=== PATIENT | male | born 1955 | race Caucasian/White ===

== ENCOUNTER 2017-08-21 15:01 | Emergency (ER) | payer BC ==
--- OUTSIDE RECORDS SUMMARY | 2017-08-21 15:04 | XMS REPORT | Clinical Summary ---
:1955 Author Organization [facility] Address [address] [place] [address] Phone Care Team Providers Name Role Phone Unavailable Primary Care Provider Unavailable Allergies No Known Allergies Current Medications Prescription Sig. Disp. Refills Start Date End Date Status amiloride-hydroCHLORO Take 1 tablet Active thiazide (MODURETIC) by mouth 5-50 mg tablet daily. SITagliptin (JANUVIA) Take 100 mg by Active 100 MG tablet mouth daily. metoprolol Take 50 mg by Active (LOPRESSOR) 50 MG mouth 2 (two) tablet times daily. celecoxib (CELEBREX) Take 200 mg by Active 200 MG capsule mouth every 12 (twelve) hours as needed for Pain. gabapentin Take 100 mg by Active (NEURONTIN) 100 MG mouth 3 capsule (three) times daily. metFORMIN Take 1,000 mg Active (GLUCOPHAGE) 1000 MG by mouth 2 tablet (two) times daily with breakfast and dinner. lovastatin (MEVACOR) Take 20 mg by Active 20 MG tablet mouth nightly. tamsulosin (FLOMAX) Take 0.4 mg by Active 0.4 mg Cp24 24 hr mouth daily. capsule mesalamine (LIALDA) Take 1,200 mg Active 1.2 gram EC tablet by mouth 2 (two) times daily. dexlansoprazole 60 mg Take 60 mg by Active capsule mouth daily. phenazopyridine Take 100 mg by Active (PYRIDIUM) 100 MG mouth 3 tablet (three) times daily as needed for Pain. ferrous sulfate 325 Take 325 mg by Active (65 FE) MG tablet mouth daily with breakfast. nitrofurantoin Take 1 capsule 8 capsule 0 08/19/2017 Active (MACRODANTIN) 100 MG (100 mg total) 8 capsule by mouth 2 (two) times daily for 4 days. phenazopyridine Take 1 tablet 10 tablet 0 08/19/2017 Active (PYRIDIUM) 200 MG (200 mg total) 8 tablet by mouth 3 (three) times daily as needed for Pain for up to 6 days. AMOXICILLIN ORAL Take by mouth. Discontinued 8 nitrofurantoin Take 1 capsule 8 capsule 0 08/19/2017 Discontinued (MACRODANTIN) 100 MG (100 mg total) 8 capsule by mouth 2 (two) times daily for 4 days. phenazopyridine Take 1 tablet 10 tablet 0 08/19/2017 Discontinued (PYRIDIUM) 200 MG (200 mg total) 8 tablet by mouth 3 (three) times daily as needed for Pain for up to 6 days. Active Problems Problem Noted Date Bladder tumor 08/19/2017 Bladder cancer (HCC) 08/19/2017 Encounters Date Type Specialty Care Team Description 08/19/2017 Hospital Encounter Tyshawn Jorge MD Malignant neoplasm of urinary bladder, unspecified site (HCC) 08/19/2017 Procedure Pass 08/19/2017 Surgery Tyshawn Jorge MD CYSTOSCOPY,BLUE LIGHT CYSVIEW 08/17/2017 Anesthesia Event Sisi Rivas MD 08/17/2017 Orders Only Urology Tyshawn Jorge MD Malignant neoplasm of urinary bladder, unspecified site (HCC) (Primary Dx) after 08/20/2016 Social History Tobacco Use Types Packs/Day Years Used Date Former Smoker Smokeless Tobacco: Never Used Tobacco Cessation: Counseling Given: No Alcohol Use Drinks/Week oz/Week Comments No Sex Assigned at Date Recorded Not on file Last Filed Vital Signs Vital Sign Reading Time Taken Blood Pressure 157/82 08/19/2017 10:45 PM CDT Pulse 73 08/19/2017 10:45 PM CDT Temperature 37 C (98.6 F) 08/19/2017 10:45 PM CDT Respiratory Rate 19 08/19/2017 10:45 PM CDT Oxygen Saturation 95% 08/19/2017 10:45 PM CDT Inhaled Oxygen Concentration - - Weight 92.1 kg (203 lb) 08/19/2017 9:00 AM CDT Height 175.3 cm (5' 9") 08/19/2017 9:00 AM CDT Body Mass Index 29.98 08/19/2017 9:00 AM CDT Plan of Treatment Not on file Procedures Procedure Name Priority Date/Time Associated Diagnosis Comments CYSTOSCOPY,TURBT 08/19/2017 4:12 PM Malignant neoplasm of CDT urinary bladder, unspecified site (HCC) CYSTOSCOPY,BLUE LIGHT 08/19/2017 4:12 PM Malignant neoplasm of CYSVIEW CDT urinary bladder, unspecified site (HCC) after 08/20/2016 Results TRANSFUSION SERVICE REPORT - SCAN (08/20/2017 6:04 PM)POC-Glucose meter (2017 6:19 PM)Only the most recent of3 resultswithin the time period is included. Component Value Ref Range POC-Glucose Meter 178 (H)Comment: TESTED AT [address] 70 - 110 mg/[place] [address] Specimen Performing Laboratory Blood [address] [address] Type and screen, automated (08/19/2017 10:33 AM) Component Value Ref Range ABO/RH AUTOMATED (BEAKER) O POSITIVE Ab Scrn NEGATIVE Specimen Performing Laboratory Blood [address] [address] CBC with platelet count + automated diff (08/19/2017 10:33 AM) Component Value Ref Range WBC 8.6 3.5 - 10.5 K/L RBC 3.51 (L) 4.63 - 6.08 M/L Hemoglobin 7.2 (L) 13.7 - 17.5 GM/DL Hematocrit 26.5 (L) 40.1 - 51.0 % MCV 75.5 (L) 79.0 - 92.2 fL MCH 20.5 (L) 25.7 - 32.2 pg MCHC 27.2 (L) 32.3 - 36.5 GM/DL RDW 18.4 (H) 11.6 - 14.4 % Platelets 357 150 - 450 K/CU MM MPV 10.0 9.4 - 12.4 fL nRBC 0 0 - 0 /100 WBC % Neutros 70 % % Lymphs 19 % % Monos 9 % % Eos 2 % % Baso 1 % # Neutros 5.98 (H) 1.78 - 5.38 K/L # Lymphs 1.60 1.32 - 3.57 K/L # Monos 0.75 0.30 - 0.82 K/L # Eos 0.14 0.04 - 0.54 K/L # Baso 0.06 0.01 - 0.08 K/L Immature Granulocytes-Relative 1 0 - 1 % Specimen Performing Laboratory Blood [address] [address] CBC with platelet count + automated diff (08/19/2017 10:33 AM) Specimen Performing Laboratory Blood Narrative The following orders were created for panel order CBC with platelet count + automated diff. Procedure Abnormality Status --------- ------ CBC with platelet count ...[[id number]]AbnormalFinal result Please view results for these tests on the individual orders. Basic Metabolic Panel (08/19/2017 10:33 AM) Component Value Ref Range Sodium 140 136 - 145 meq/L Potassium 4.0 3.5 - 5.1 meq/L Chloride 106 98 - 107 meq/L CO2 25 22 - 29 meq/L BUN 23 (H) 7 - 21 mg/dL Creatinine 1.53 (H) 0.57 - 1.25 mg/dL Glucose 103 70 - 105 mg/dL Calcium 9.4 8.4 - 10.2 mg/dL EGFR 46Comment: ESTIMATED GFR IS NOT ACCURATE mL/min/1.73 sq m CREATININE CLEARANCE IN PREDICTING GLOMERULAR FILTRATION RATE. ESTIMATED GFR IS NOT APPLICABLE FOR DIALYSIS PATIENTS. Specimen Performing Laboratory Blood [address] [address] after 08/20/2016
--- OUTSIDE RECORDS SUMMARY | 2017-08-21 15:04 | XMS REPORT ---
:1955 Author Organization [employer] Care Team Providers Name Role Phone Tiago Lane Provider Role Unavailable Allergies No Known Allergies Problems Problem Type Condition Code Onset Dates Condition Status Problem Mixed hyperlipidemia E78.2 Active Problem Hemorrhoids K64.9 Active Problem Benign essential hypertension, age I10 Active 0-18 Problem Urothelial carcinoma C68.9 Active Problem Unspecified kidney failure N19 Active Problem Iron deficiency anemia due to chronic D50.0 Active blood loss Problem BPH without urinary obstruction N40.0 Active Problem Colitis K52.9 Active Problem Diabetes mellitus type 2, controlled, E11.9 Active without complications Problem Non-alcoholic fatty liver disease K76.0 Active Assessment Microalbuminuria R80.9 Active Assessment Colitis K52.9 Active Assessment Non-alcoholic fatty liver disease K76.0 Active Assessment BPH without urinary obstruction N40.0 Active Assessment Urothelial carcinoma C68.9 Active Assessment Benign essential hypertension, age I10 Active 0-18 Assessment Mixed hyperlipidemia E78.2 Active Assessment Diabetes mellitus type 2, controlled, E11.9 Active without complications Assessment Iron deficiency anemia due to chronic D50.0 Active blood loss Problem Microalbuminuria R80.9 Active Medications Medication Code Code Instructions Start End Status Dosage System Date Date Dexilant [facility] 43031521242 60 MG Orally Active 1 capsule Once a day Januvia [facility] 52897233107 100 MG Orally Active 1 tablet Once a day Pantoprazole [facility] 83564134580 40 MG Orally Active 1 tablet Sodium Once a day Flomax [facility] 30388840519 0.4 MG Orally Active 2 capsule Once a day Lantus SoloStar [facility] 61506360283 100 UNIT/ML Active not Subcutaneous defined Gabapentin [facility] 10384829325 100 MG Orally Active 1 capsule Three times a day Lisinopril [facility] 04375160351 2.5 MG Orally Active 1 tablet Once a day Ferrous Sulfate [facility] [address]-54 325 (65 Fe) MG Active 1 tablet Orally twice a day Celecoxib [facility] 04440869206 200 MG Orally Active 1 capsule Once a day with food Lovastatin [facility] 63622327208 20 MG Orally Active 1 tablet Once a day with a meal Mesalamine [facility] 63946936017 1.2 GM Orally Active 2 tablets Twice a day Metformin HCl [facility] 06924191403 1000 MG Orally Active 1 tablet Twice a day with meals Metoprolol [facility] 36170690273 100 MG Orally Active 1 tablet Tartrate Twice a day with food Amiloride-[place] [facility] 40328508097 5-50 MG Orally Active 1 tablet chlorothiazide Once a day with food Celecoxib [facility] 09702597790 200 Active TAKE 1 CAPSULE BY MOUTH DAILY Results No Known Results Summary Purpose [employer] Submission
--- OUTSIDE RECORDS SUMMARY | 2017-08-21 15:04 | XMS REPORT ---
:1955 Author Organization [employer] Care Team Providers Name Role Phone OrdoñezLane Provider Role Unavailable Allergies No Known Allergies Problems Problem Type Condition Code Onset Dates Condition Status Problem BPH without urinary obstruction N40.0 Active Problem Microalbuminuria R80.9 Active Problem Hemorrhoids K64.9 Active Problem Benign essential hypertension, age I10 Active 0-18 Problem Colitis K52.9 Active Problem Diabetes mellitus type 2, controlled, E11.9 Active without complications Problem Non-alcoholic fatty liver disease K76.0 Active Problem Mixed hyperlipidemia E78.2 Active Problem Unspecified kidney failure N19 Active Medications Medication Code System Code Instructions Start End Date Status Dosage Date Flomax [facility] 80429725819 0.4 MG Orally Active 2 capsule Once a day Results No Known Results Summary Purpose [employer] Submission
--- OUTSIDE RECORDS SUMMARY | 2017-08-21 15:04 | XMS REPORT ---
:1955 Author Organization [employer] Care Team Providers Name Role Phone Lane Ordoñez Provider Role Unavailable Allergies No Known Allergies [...] Problem Unspecified kidney failure N19 Active Medications No Known Medications Results No Known Results Summary Purpose [facility] Submission
--- OUTSIDE RECORDS SUMMARY | 2017-08-21 15:04 | XMS REPORT ---
:1955 Author Organization [employer] Care Team Providers Name Role Phone Lane [...] Medications Results No Known Results Summary Purpose [facility] [employer] Submission
--- OUTSIDE RECORDS SUMMARY | 2017-08-21 15:04 | XMS REPORT ---
:1955 Author Organization [employer] Care Team Providers Name Role Phone Lane [...] Medications Results No Known Results Summary Purpose [facility] Submission
--- OUTSIDE RECORDS SUMMARY | 2017-08-21 15:04 | XMS REPORT ---
:1955 Author Organization [employer] Care Team Providers Name Role Phone OrdoñezLane Provider Role Unavailable Allergies, Adverse Reactions, Alerts Substance Reaction Event Type N.K.D.A. Info Not Available Non Drug Allergy Problems Problem Type Condition Code Onset Dates Condition Status Assessment Diabetes mellitus type 2, controlled, E11.9 Active without complications Problem BPH without urinary obstruction N40.0 Active Problem Microalbuminuria R80.9 Active Problem Hemorrhoids K64.9 Active Problem Benign essential hypertension, age I10 Active 0-18 Problem Colitis K52.9 Active Problem Diabetes mellitus type 2, controlled, E11.9 Active without complications Problem Non-alcoholic fatty liver disease K76.0 Active Problem Mixed hyperlipidemia E78.2 Active Problem Unspecified kidney failure N19 Active Assessment Non-alcoholic fatty liver disease K76.0 Active Assessment BPH without urinary obstruction N40.0 Active Assessment Microalbuminuria R80.9 Active Assessment Mixed hyperlipidemia E78.2 Active Assessment Colitis K52.9 Active Assessment Benign essential hypertension, age I10 Active 0-18 Medications Medication Code Code Instructions Start End Status Dosage System Date Date Metoprolol [facility] 42480172687 100 MG Orally Active 1 tablet Tartrate Twice a day with food Amiloride-Hydr [facility] 90198648104 5-50 MG Orally Active 1 tablet ochlorothiazid Once a day with food e Lovastatin [facility] 88102476215 20 MG Orally Active 1 tablet Once a day with a meal Januvia [facility] 36622487287 100 MG Orally Active 1 tablet Once a day Lantus [facility] 77242489086 100 UNIT/ML Active not SoloStar Subcutaneous defined Flomax [facility] 66111867353 0.4 MG Orally July 01, Active 2 capsule Once a day 2017 Dexilant [facility] 48886191919 60 MG Orally Active 1 capsule Once a day Celecoxib [facility] 23106608135 200 MG Orally Active 1 capsule Once a day with food Lisinopril [facility] 75279571108 2.5 MG Orally May 04, Active 1 tablet Once a day 2017 Gabapentin [facility] 39040569710 100 MG Orally Active 1 capsule Three times a day Metformin HCl [facility] 63282920290 1000 MG Orally Active 1 tablet Twice a day with meals Mesalamine [facility] 29362463411 1.2 GM Orally Active 2 tablets Once a day Results No Known Results Summary Purpose [employer] Submission
--- OUTSIDE RECORDS SUMMARY | 2017-08-21 15:04 | XMS REPORT ---
:1955 Author Organization [employer] Care Team Providers Name Role Phone Lane [...] Medications Results No Known Results Summary Purpose [employer] Submission
--- OUTSIDE RECORDS SUMMARY | 2017-08-21 15:04 | XMS REPORT ---
:1955 Author Organization [facility] Address [address] [place] [address] Care Team Providers Name Role Phone RUBY SIFUENTES Unavailable Unavailable Problems This patient has no known problems. Allergies, Adverse Reactions, Alerts This patient has no known allergies or adverse reactions. Medications This patient has no known medications. Results Test Description Test Time Test Comments Text Results Atomic Results Result Comments POCT-GLUCOSE METER 2017-08-19 18:21:00 Test Item Value Reference Range Comments POC-GLUCOSE METER (BEAKER) (test 178 mg/dL 70-110 TESTED AT [address] glhb=1274) [facility] [id number] POCT-GLUCOSE [id number] 17:31:00 Test Item Value Reference Range Comments POC-GLUCOSE METER (BEAKER) 67 mg/dL 70-110 TESTED AT [address] (test ibam=2558) [facility] [id number] BASIC METABOLIC [id number] 11:25:00 Test Item Value Reference Range Comments SODIUM (BEAKER) (test 140 meq/L 136-145 otds=149) POTASSIUM (BEAKER) (test 4.0 meq/L 3.5-5.1 iaod=611) CHLORIDE (BEAKER) (test 106 meq/L 98-107 meba=972) CO2 (BEAKER) (test 25 meq/L 22-29 hgvj=897) BLOOD UREA NITROGEN 23 mg/dL 7-21 (BEAKER) (test heud=829) CREATININE (BEAKER) (test 1.53 mg/dL 0.57-1.25 ywww=845) GLUCOSE RANDOM (BEAKER) 103 mg/dL 70-105 (test dguc=512) CALCIUM (BEAKER) (test 9.4 mg/dL 8.4-10.2 ucjb=240) EGFR (BEAKER) (test 46 mL/min/1.73 sq m ESTIMATED GFR IS NOT zntt=6449) ACCURATE CREATININE CLEARANCE IN PREDICTING GLOMERULAR FILTRATION RATE. ESTIMATED GFR IS NOT APPLICABLE FOR DIALYSIS PATIENTS. CBC W/PLT COUNT & AUTO [id number] 11:10:00 Test Item Value Reference Range Comments WHITE BLOOD CELL COUNT (BEAKER) (test sdrm=722) 8.6 K/ L 3.5-10.5 RED BLOOD CELL COUNT (BEAKER) (test hxpi=076) 3.51 M/ L 4.63-6.08 HEMOGLOBIN (BEAKER) (test opgb=928) 7.2 GM/DL 13.7-17.5 HEMATOCRIT (BEAKER) (test nppp=194) 26.5 % 40.1-51.0 MEAN CORPUSCULAR VOLUME (BEAKER) (test xlrt=122) 75.5 fL 79.0-92.2 MEAN CORPUSCULAR HEMOGLOBIN (BEAKER) (test 20.5 pg 25.7-32.2 ngdc=309) MEAN CORPUSCULAR HEMOGLOBIN CONC (BEAKER) (test 27.2 GM/DL 32.3-36.5 rxss=091) RED CELL DISTRIBUTION WIDTH (BEAKER) (test 18.4 % 11.6-14.4 iago=562) PLATELET COUNT (BEAKER) (test klbc=307) 357 K/CU MM 150-450 MEAN PLATELET VOLUME (BEAKER) (test kyua=935) 10.0 fL 9.4-12.4 NUCLEATED RED BLOOD CELLS (BEAKER) (test 0 /100 WBC 0-0 byft=947) NEUTROPHILS RELATIVE PERCENT (BEAKER) (test 70 % czur=482) LYMPHOCYTES RELATIVE PERCENT (BEAKER) (test 19 % rxny=128) MONOCYTES RELATIVE PERCENT (BEAKER) (test 9 % rojr=673) EOSINOPHILS RELATIVE PERCENT (BEAKER) (test 2 % xhls=830) BASOPHILS RELATIVE PERCENT (BEAKER) (test 1 % ulhu=935) NEUTROPHILS ABSOLUTE COUNT (BEAKER) (test 5.98 K/ L 1.78-5.38 bfca=843) LYMPHOCYTES ABSOLUTE COUNT (BEAKER) (test 1.60 K/ L 1.32-3.57 iivy=474) MONOCYTES ABSOLUTE COUNT (BEAKER) (test 0.75 K/ L 0.30-0.82 qyhb=049) EOSINOPHILS ABSOLUTE COUNT (BEAKER) (test 0.14 K/ L 0.04-0.54 ygbz=637) BASOPHILS ABSOLUTE COUNT (BEAKER) (test 0.06 K/ L 0.01-0.08 gkyw=923) IMMATURE GRANULOCYTES-RELATIVE PERCENT (AKER) 1 % 0-1 (test nhhv=4532) POCT-GLUCOSE [id number] 10:38:00 Test Item Value Reference Range Comments POC-GLUCOSE METER ([facility]) 118 mg/dL 70-110 TESTED AT [facility] [address] (test psur=7241) [facility] [id number]
--- NOTE | 2017-08-21 16:53 | EDPHYS ---
Physician Documentation [facility] Name: Devin Arrieat Age: 62 yrs Sex: Male : 1955 Arrival Date: 08/21/2017 Time: 15:04 Bed 28 Private MD: Tiago [facility] ED Physician Mahesh Riojas HPI: 08/21 16:40 This 62 yrs old Male presents to ER via Ambulatory with complaints of Urinary jr8 Retention, Post Surgical Pain. 16:40 The patient presents with urinary symptoms, retention. Onset: The symptoms/episode jr8 began/occurred acutely, today. Modifying factors: The symptoms are alleviated by nothing, the symptoms are aggravated by urinating. Associated signs and symptoms: Pertinent positives: abdominal pain. Severity of symptoms: At their worst the symptoms were moderate, in the emergency department the symptoms are unchanged. The patient has not experienced similar symptoms in the past. The patient has been recently seen by a physician:. Patient had recent bladder procedure for cancer. Was suppose to take Lorenz today which he did this morning. Stated that since then has been unable to urinate and now has lower abdominal discomfort . Historical: - Allergies: 15:19 No Known Allergies; sg - PMHx: 15:19 Diabetes - NIDDM; Hypertension; Chrons Disease; BPH; Bladder Cancer; sg - PSHx: 15:19 Bladder Sx; sg - Immunization history:: Adult Immunizations up to date. - Social history:: Smoking status: Patient/guardian denies using tobacco. - Ebola Screening: : Patient negative for fever greater than or equal to 101.5 degrees Fahrenheit, and additional compatible Ebola Virus Disease symptoms Patient denies exposure to infectious person Patient denies travel to an Ebola-affected area in the 21 days before illness onset No symptoms or risks identified at this time. ROS: 16:40 Eyes: Negative for injury, pain, redness, and discharge, ENT: Negative for injury, jr8 pain, and discharge, Neck: Negative for injury, pain, and swelling, Cardiovascular: Negative for chest pain, palpitations, and edema, Respiratory: Negative for shortness of breath, cough, wheezing, and pleuritic chest pain, Back: Negative for injury and pain, MS/Extremity: Negative for injury and deformity, Skin: Negative for injury, rash, and discoloration, Neuro: Negative for headache, weakness, numbness, tingling, and seizure. 16:40 Abdomen/GI: Positive for abdominal pain, of the suprapubic area, Negative for nausea, vomiting, and diarrhea, anorexia, dysphagia, hematemesis, black/tarry stool, rectal pain, rectal bleeding, bowel incontinence, flatulence. 16:40 : Positive for difficulty urinating, Negative for penile discharge, penile pain, testicular pain Exam: 16:40 Eyes: Pupils equal round and reactive to light, extra-ocular motions intact. Lids and jr8 lashes normal. Conjunctiva and sclera are non-icteric and not injected. Cornea within normal limits. Periorbital areas with no swelling, redness, or edema. ENT: Nares patent. No nasal discharge, no septal abnormalities noted. Tympanic membranes are normal and external auditory canals are clear. Oropharynx with no redness, swelling, or masses, exudates, or evidence of obstruction, uvula midline. Mucous membranes moist. Neck: Trachea midline, no thyromegaly or masses palpated, and no cervical lymphadenopathy. Supple, full range of motion without nuchal rigidity, or vertebral point tenderness. No Meningismus. Cardiovascular: Regular rate and rhythm with a normal S1 and S2. No gallops, murmurs, or rubs. Normal PMI, no JVD. No pulse deficits. Respiratory: Lungs have equal breath sounds bilaterally, clear to auscultation and percussion. No rales, rhonchi or wheezes noted. No increased work of breathing, no retractions or nasal flaring. Abdomen/GI: Soft with mild suprapubic abodminal tenderness only. Normal bowel sounds present. No distension or tympany. No guarding or rebound. No evidence of tenderness throughout. Back: No spinal tenderness. No costovertebral tenderness. Full range of motion. Skin: Warm, dry with normal turgor. Normal color with no rashes, no lesions, and no evidence of cellulitis. MS/ Extremity: Pulses equal, no cyanosis. Neurovascular intact. Full, normal range of motion. Neuro: Awake and alert, GCS 15, oriented to person, place, time, and situation. Cranial nerves II-XII grossly intact. Motor strength 5/5 in all extremities. Sensory grossly intact. Cerebellar exam normal. Normal gait. Vital Signs: 15:18 BP 159 / 72; Pulse 71; Resp 18; Temp 98.7(O); Pulse Ox 96% ; tl3 16:07 BP 155 / 68; Pulse 72; Resp 18; Pulse Ox 97% on R/A; mt 16:40 BP 132 / 58; Pulse 70; Resp 18; Pulse Ox 96% ; tl3 16:40 BP 154 / 67; Pulse 78; Resp 16; Pulse Ox 97% ; tl3 MDM: 15:19 Patient medically screened. jr8 16:40 Data reviewed: vital signs, nurses notes, lab test result(s). Data interpreted: Pulse jr8 oximetry: on room air is 97 %. Interpretation: normal. Counseling: I had a detailed discussion with the patient and/or guardian regarding: the historical points, exam findings, and any diagnostic results supporting the discharge/admit diagnosis, the need for outpatient follow up, a urologist. 08/21 16:16 Order name: Urine Dipstick--Ancillary (enter results) eb 08/21 15:27 Order name: Lorenz; Complete Time: 16:06 jr8 Administered Medications: No medications were administered Disposition: 18:23 Co-signature as Attending Physician, Mahesh Riojas MD I agree with the assessment and kdr plan of care. Disposition: 08/21/17 16:53 Discharged to Home. Impression: Retention of urine. - Condition is Stable. - Discharge Instructions: Lorenz Catheter Care, Adult, Urinary Retention, Acute, Male. - Medication Reconciliation Form, Thank You Letter, Antibiotic Education, Prescription Opioid Use form. - Follow up: Private Physician; When: 2 - 3 days; Reason: Recheck today's complaints, Continuance of care, Re-evaluation by your physician. - Problem is new. - Symptoms have improved. Signatures: Dispatcher [employer] EDKrishna Barnard, RN RN Mahesh Riojas MD MD [facility] Abelino Jose PA PA jr8 Fiorella Reyna, RN RN tl3 Corrections: (The following items were deleted from the chart) 17:52 16:53 08/21/2017 16:53 Discharged to Home. Impression: Retention of urine. Condition is tl3 Stable. Forms are Medication Reconciliation Form, Thank You Letter, Antibiotic Education, Prescription Opioid Use. Follow up: Private Physician; When: 2 - 3 days; Reason: Recheck today's complaints, Continuance of care, Re-evaluation by your physician. Problem is new. Symptoms have improved. jr8
--- NOTE | 2017-08-21 16:53 | ER ---
Nurse's Notes [facility] Name: Devin Arrieta Age: 62 yrs Sex: Male : 1955 Arrival Date: 08/21/2017 Time: 15:04 Bed 28 Private MD: Lane Ordoñez Diagnosis: Retention of urine Presentation: 08/21 15:17 Presenting complaint: Patient states: Yesterday at [facility] i had a sx on my sg bladder d/t bladder cancer, today i removed the lawson cath around 0645 this morning as instructed, no urine output noted all day today, reports suprapubic pain and mild abd distention, of [facility], PCP is . Transition of care: patient was not received from another setting of care. Onset of symptoms was August 21, 2017. Risk Assessment: Do you want to hurt yourself or someone else? Patient reports no desire to harm self or others. Initial Sepsis Screen: Does the patient meet any 2 criteria? No. Patient's initial sepsis screen is negative. Does the patient have a suspected source of infection? Yes: Dysuria/Frequency/Urgency/UTI. Care prior to arrival: None. 15:17 Method Of Arrival: Ambulatory sg 15:17 Acuity: CANDELARIO 3 sg Historical: - Allergies: 15:19 No Known Allergies; sg - PMHx: 15:19 Diabetes - NIDDM; Hypertension; Chrons Disease; BPH; Bladder Cancer; sg - PSHx: 15:19 Bladder Sx; sg - Immunization history:: Adult Immunizations up to date. - Social history:: Smoking status: Patient/guardian denies using tobacco. - Ebola Screening: : Patient negative for fever greater than or equal to 101.5 degrees Fahrenheit, and additional compatible Ebola Virus Disease symptoms Patient denies exposure to infectious person Patient denies travel to an Ebola-affected area in the 21 days before illness onset No symptoms or risks identified at this time. Screenin:18 Abuse screen: Denies threats or abuse. Nutritional screening: No deficits noted. tl3 Tuberculosis screening: No symptoms or risk factors identified. Fall Risk None identified. Assessment: 15:18 General: Appears uncomfortable, well groomed, well developed, well nourished, Behavior tl3 is cooperative, appropriate for age, anxious. Pain: Complains of pain in abdomen Pain currently is 10 out of 10 on a pain scale. Neuro: Level of Consciousness is awake, alert, obeys commands, Oriented to person, place, time, situation, Appropriate for age. Cardiovascular: Heart tones S1 S2 present Patient's skin is warm and dry. pale. Respiratory: Airway is patent Respiratory effort is even, unlabored, Respiratory pattern is regular, symmetrical, Breath sounds are clear bilaterally. GI: No deficits noted. No signs and/or symptoms were reported involving the gastrointestinal system. : Reports inability to void, since removal of lawson catheter this am, had urinary surgery two days ago. EENT: No deficits noted. No signs and/or symptoms were reported regarding the EENT system. Derm: No deficits noted. No signs and/or symptoms reported regarding the dermatologic system. Musculoskeletal: No deficits noted. No signs and/or symptoms reported regarding the musculoskeletal system. 16:40 Reassessment: Patient and/or family updated on plan of care and expected duration. Pain tl3 level reassessed. Patient is alert, oriented x 3, equal unlabored respirations, skin warm/dry/pink. pt feels much better. 16:40 Reassessment: Patient appears in no apparent distress at this time. No changes from tl3 previously documented assessment. Patient and/or family updated on plan of care and expected duration. Pain level reassessed. Patient is alert, oriented x 3, equal unlabored respirations, skin warm/dry/pink. Vital Signs: 15:18 BP 159 / 72; Pulse 71; Resp 18; Temp 98.7(O); Pulse Ox 96% ; tl3 16:07 BP 155 / 68; Pulse 72; Resp 18; Pulse Ox 97% on R/A; mt 16:40 BP 132 / 58; Pulse 70; Resp 18; Pulse Ox 96% ; tl3 16:40 BP 154 / 67; Pulse 78; Resp 16; Pulse Ox 97% ; tl3 ED Course: 15:04 Patient arrived in ED. sb2 15:05 Lane Ordoñez DO is Private Physician. sb2 15:09 Fiorella Reyna, JOSE ANTONIO is Primary Nurse. tl3 15:18 Triage completed. sg 15:18 ED physician to see patient. tl3 15:18 Patient has correct armband on for positive identification. Bed in low position. Call tl3 light in reach. Side rails up X 1. Pulse ox on. NIBP on. 15:18 No provider procedures requiring assistance completed. tl3 15:19 Abelino Jose PA is PHCP. jr8 15:19 Mahesh Riojas MD is Attending Physician. jr8 15:19 Arm band placed on. sg 16:11 Lawson cath inserted, using sterile technique, 14 Fr., by id, balloon inflated, to tl3 gravity drainage, urine specimen collected. returned ananda urine. Patient tolerated well. 16:40 Patient did not have IV access during this emergency room visit. tl3 Administered Medications: No medications were administered Output: 16:12 Urine: 750ml (Lawson); Total: 750ml. tl3 16:40 Urine: 300ml (Lawson); Total: 1050ml. tl3 Outcome: 16:40 Discharged to home ambulatory. tl3 16:40 Condition: good 16:40 Discharge instructions given to patient, Instructed on discharge instructions, follow up and referral plans. Demonstrated understanding of instructions, follow-up care, lawson bag removed and leg bag placed for pt comfort 16:53 Discharge ordered by . jr8 17:52 Patient left the ED. tl3 Signatures: Krishna Gallego, RN RN Abelino Jose PA PA jr8 Jazzmine Ruggiero mt, Sheri 2 Fiorella Reyna, JOSE ANTONIO RN tl3
[2017-08-21 17:33] LABS: Urine Blood 3+ (NEG); Urine Glucose TRACE (NEG); Urine Protein 3+ (NEG)
== END 2017-08-21 17:52 | disposition home or self-care (01) ==
LOC: ER 15:01
DX: R33.9 Retention of urine, unspecified (principal); I10 Essential (primary) hypertension; Z85.51 Personal history of malignant neoplasm of bladder
CPT/HCPCS: 51702; 81003; 99284

== ENCOUNTER 2018-02-22 07:43 | Day surgery (SDC) | payer OTHER ==
[2018-02-18 16:16] LABS: Absolute Lymphocytes (CBC) 1.6 K/uL (0.7-4.9); Absolute Monocytes 0.7 K/uL (0.1-1.3); Basophils % 0.6 % (0-1.3); Eosinophils % 2.7 % (0-4.4); Hematocrit 32.1 % (39.6-49.0); Lymphocytes % 14.9 % (15.3-44.8); MPV 8.9 fL (7.6-11.3); Monocytes % 6.4 % (3.3-12.3); Protime INR 0.98; RBC Red Blood Cell Count 3.14 M/uL (4.33-5.43)
[2018-02-18 16:26] LABS: Potassium 4.3 mmol/L (3.5-5.1)
--- OUTSIDE RECORDS SUMMARY | 2018-02-22 07:47 | XMS REPORT ---
[...] End Status Dosage System Date Date Dexilant [facility] 77408639349 60 MG Orally Active 1 capsule Once a day Januvia [facility] 06121328897 100 MG Orally Active 1 tablet Once a day Pantoprazole [facility] 01261771097 40 MG Orally Active 1 tablet Sodium Once a day Flomax [facility] 47299926081 0.4 MG Orally Active 2 capsule Once a day Lantus SoloStar [facility] 97905168689 100 UNIT/ML Active not Subcutaneous defined Gabapentin [facility] 18540620929 100 MG Orally Active 1 capsule Three times a day Lisinopril [facility] 67775324891 2.5 MG Orally Active 1 tablet Once a day Ferrous Sulfate [facility] [address]-56 325 (65 Fe) MG Active 1 tablet Orally twice a day Celecoxib [facility] 91804170056 200 MG Orally Active 1 capsule Once a day with food Lovastatin [facility] 11226600678 20 MG Orally Active 1 tablet Once a day with a meal Mesalamine [facility] 69014458978 1.2 GM Orally Active 2 tablets Twice a day Metformin HCl [facility] 44031231377 1000 MG Orally Active 1 tablet Twice a day with meals Metoprolol [facility] 46058192218 100 MG Orally Active 1 tablet Tartrate Twice a day with food Amiloride-[place] [facility] 43095974330 5-50 MG Orally Active 1 tablet chlorothiazide Once a day with food Celecoxib [facility] 37213872951 200 Active TAKE 1 CAPSULE BY MOUTH DAILY Results No Known Results Summary Purpose [employer] Submission
--- OUTSIDE RECORDS SUMMARY | 2018-02-22 07:47 | XMS REPORT ---
:1955 Author Organization [employer] Care Team Providers Name Role Phone Lane [...] Medications Results No Known Results Summary Purpose [employer] Submission
--- OUTSIDE RECORDS SUMMARY | 2018-02-22 07:47 | XMS REPORT | Clinical Summary ---
:1955 Author Organization [facility] Address [address] [place] [address] Care Team Providers Name Role Phone Lane Ordoñez Primary Care Provider Allergies No Known Allergies Medications Medication Sig Dispensed Refills Start Date End Date Status amiloride-hydroCHLORO Take 1 tablet 0 Active thiazide (MODURETIC) by mouth 5-50 mg tablet daily. SITagliptin (JANUVIA) Take 100 mg by 0 Active 100 MG tablet mouth daily. metoprolol Take 50 mg by 0 Active (LOPRESSOR) 50 MG mouth 2 (two) tablet times daily. celecoxib (CELEBREX) Take 200 mg by 0 Active 200 MG capsule mouth every 12 (twelve) hours as needed for Pain. gabapentin Take 100 mg by 0 Active (NEURONTIN) 100 MG mouth 2 (two) capsule times daily . metFORMIN Take 1,000 mg 0 Active (GLUCOPHAGE) 1000 MG by mouth 2 tablet (two) times daily with breakfast and dinner. lovastatin (MEVACOR) Take 20 mg by 0 Active 20 MG tablet mouth nightly. tamsulosin (FLOMAX) Take 0.8 mg by 0 Active 0.4 mg Cp24 24 hr mouth daily . capsule mesalamine (LIALDA) Take 1,200 mg 0 Active 1.2 gram EC tablet by mouth 2 (two) times daily. dexlansoprazole 60 mg Take 60 mg by 0 Active capsule mouth daily. phenazopyridine Take 200 mg by 0 Active (PYRIDIUM) 100 MG mouth 2 (two) tablet times daily . ferrous sulfate 325 Take 325 mg by 0 Active (65 FE) MG tablet mouth daily with breakfast. finasteride (PROSCAR) Take 5 mg by 0 Active 5 mg tablet mouth daily. AMOXICILLIN ORAL Take by mouth. 0 Discontinued 8 nitrofurantoin Take 1 capsule 8 capsule 0 08/19/2017 Discontinued (MACRODANTIN) 100 MG (100 mg total) 8 capsule by mouth 2 (two) times daily for 4 days. phenazopyridine Take 1 tablet 10 tablet 0 08/19/2017 Discontinued (PYRIDIUM) 200 MG (200 mg total) 8 tablet by mouth 3 (three) times daily as needed for Pain for up to 6 days. nitrofurantoin Take 1 capsule 8 capsule 0 08/19/2017 (MACRODANTIN) 100 MG (100 mg total) 8 capsule by mouth 2 (two) times daily for 4 days. phenazopyridine Take 1 tablet 10 tablet 0 08/19/2017 (PYRIDIUM) 200 MG (200 mg total) 8 tablet by mouth 3 (three) times daily as needed for Pain for up to 6 days. Active Problems Problem Noted Date Bladder tumor 08/19/2017 Bladder cancer 08/19/2017 Encounters Date Type Specialty Care Team Description 02/11/2018 Hospital Encounter Pre-Admission Resource, Oqmt Testing Preadmit Phone 02/11/2018 Hospital Encounter Pre-Admission Tyshawn Jorge, Testing MD Resource, Oqmt Preadmit Phone 09/09/2017 Hospital Encounter Radiology Tyshawn Jorge Malignant neoplasm of urinary bladder, unspecified site (HCC) 09/03/2017 Outside Orders Central Scheduling Tyshawn Jorge Malignant bobbi CAMPBELL of urinary bladder, unspecified site (HCC) (Primary Dx) 08/19/2017 Anesthesia Event Sisi Rivas MD 08/19/2017 Surgery Tyshawn Jorge, CYSTOSCOPY,BLUE MD LIGHT CYSVIEW 08/19/2017 Hospital Encounter Tyshawn Jorge Malignant neoplasm of urinary bladder, unspecified site (HCC) 08/17/2017 Orders Only Urology Tyshawn Jorge Malignant neoplasm of urinary bladder, unspecified site (HCC) (Primary Dx) after 02/21/2017 Social History Tobacco Use Types Packs/Day Years Used Date Former Smoker Quit: 1987 Smokeless Tobacco: Never Used Tobacco Cessation: Counseling Given: No Alcohol Use Drinks/Week oz/Week Comments No Sex Assigned at Date Recorded Not on file Job Start Date Occupation Industry Not on file Not on file Not on file Travel History Travel Start Travel End No recent travel history available. Last Filed Vital Signs Vital Sign Reading Time Taken Blood Pressure 157/82 08/19/2017 10:45 PM CDT Pulse 73 08/19/2017 10:45 PM CDT Temperature 37 C (98.6 F) 08/19/2017 10:45 PM CDT Respiratory Rate 19 08/19/2017 10:45 PM CDT Oxygen Saturation 95% 08/19/2017 10:45 PM CDT Inhaled Oxygen Concentration - - Weight 94.8 kg (209 lb) 02/11/2018 10:31 AM [employer] Height 175.3 cm (5' 9") 02/11/2018 10:31 AM [employer] Body Mass Index 30.86 02/11/2018 10:31 AM [employer] Plan of Treatment Date Type Specialty Care Team Description 03/15/2018 Hospital Encounter Tyshawn Jorge MD [address] [facility] [address] [place] [address] [phone] 03/15/2018 Surgery Tyshawn Jorge MD CYSTOSCOPY,BLUE LIGHT [address] [facility] [address] [place] [address] [phone] 04/01/2018 Hospital Encounter Tyshawn Jorge MD [address] [facility] [address] [place] [address] [phone] 04/01/2018 Surgery Tyshawn Jorge MD ROBOTIC [address] [facility] LAPAROSCOPY,CYSTECTOMY [facility] [address] [place] [address] [phone] Procedures Procedure Name Priority Date/Time Associated Comments Diagnosis P.E.T./CT WHOLE BODY Routine 09/09/2017 3:33 Results for this PI PM CDT procedure are in the results section. POCT-GLUCOSE METER Routine 09/09/2017 1:40 Results for this PM CDT procedure are in the results section. TRANSFUSION SERVICE 08/20/2017 6:04 REPORT - SCAN PM CDT TISSUE EXAM AP Routine 08/19/2017 6:30 Results for this PM CDT procedure are in the results section. POCT-GLUCOSE METER Routine 08/19/2017 6:19 Results for this PM CDT procedure are in the results section. POCT-GLUCOSE METER Routine 08/19/2017 5:13 Results for this PM CDT procedure are in the results section. CYSTOSCOPY,TURBT 08/19/2017 4:12 Malignant neoplasm PM CDT of urinary bladder, unspecified site (HCC) CYSTOSCOPY,BLUE LIGHT 08/19/2017 4:12 Malignant neoplasm CYSVIEW PM CDT of urinary bladder, unspecified site (HCC) POCT-GLUCOSE METER Routine 08/19/2017 10:37 Results for this AM CDT procedure are in the results section. CBC W/PLT COUNT & STAT 08/19/2017 10:33 Malignant neoplasm Results for this AUTO DIFFERENTIAL AM CDT of urinary bladder, procedure are in unspecified site the results (HCC) section. TYPE AND SCREEN, Routine 08/19/2017 10:33 Results for this AUTOMATED AM CDT procedure are in the results section. BASIC METABOLIC PANEL Routine 08/19/2017 10:33 Results for this (7) AM CDT procedure are in the results section. CBC W/PLT COUNT & STAT 08/19/2017 10:33 Malignant neoplasm Results for this AUTO DIFFERENTIAL AM CDT of urinary bladder, procedure are in unspecified site the results (HCC) section. after 02/21/2017 Results NM PET/CT Whole Body Initial (09/09/2017 3:33 PM CDT) Narrative Performed At FINAL REPORT [facility] EXAMINATION: FDG-PET/CT, 09/09/2017 1:12 PM CLINICAL HISTORY: Newly diagnosed invasive bladder carcinoma. INDICATION:FDG-PET/CT is obtained for initial treatment evaluation. COMPARISON: No prior PET or CT studies are available for comparison. TECHNIQUE: Radiopharmaceutical: F-18 Fluorodeoxyglucose Administered activity: 11.6] mCi Route of administration: Intravenously via the right antecubital vein Localization time: 60 minutes Scan extent: Vertex of the skull to the feet Additional imaging: None Serum blood glucose: 220 CPT Code: 26828 FINDINGS: Head and Neck: There is no david hypermetabolism along the cervical chains. Tracer uptake in the head and neck mucosa is normal and symmetric. The brain is normal in appearance on CT scanning, and tracer uptake in the cerebral cortex is normal and symmetric. Chest: There there is no david hypermetabolism in mediastinal, hilar, or axillary chains. There are no suspicious pulmonary nodules. Abdomen and Pelvis: A Lorenz catheter is present within the lumen of the urinary bladder. The bladder wall is diffusely thickened on the CT portion of the examination, although the bladder itself is somewhat decompressed. The wall of the bladder, for example, measures up to 1.2 cm in thickness, and there is slight stranding in the fat adjacent to the bladder wall. There is faint, appreciable FDG activity within the wall of the bladder itself, but this is difficult to perceive due to the intense, physiologic FDG activity within the urine in the urinary bladder. Renal contours are normal, with physiologic tracer activity in the kidneys. There is mild bilateral ureterectasis. Scattered curvilinear regions of radiotracer activity are seen throughout the abdomen, the majority of which localizes to normal-appearing loops of bowel on the coacquired CT scan. There is, however, a segmental focus of intense tracer activity in the proximal sigmoid region. There are accompanying CT findings of bowel wall thickening (up to 1.5 cm) and pericolonic stranding. Tracer uptake in the hepatic parenchyma is homogeneous. The spleen is normal in size and FDG avidity. Musculoskeletal: There are no focal sites of osseous hypermetabolism. No suspicious lytic or sclerotic osseous lesions are identified. IMPRESSION: 1. Diffuse bladder wall thickening. This is consistent with known bladder carcinoma, although some of this thickening may be due to decompression of the bladder lumen from the presence of a Lorenz catheter. 2. No evidence of metastatic disease from bladder carcinoma. 3. Segmental thickening and hypermetabolism of the colonic wall in the proximal sigmoid segment. Notes indicate that the patient has a diagnosis of colitis, which could account for this finding; however, endoscopy could be considered to exclude the possibility of colon carcinoma. Signed: Arlet Frye MD Report Verified Date/Time:09/14/2017 09:27:48 Procedure Note Interface, External Ris In - 09/14/2017 9:30 AM CDT FINAL REPORT EXAMINATION: FDG-PET/CT, 09/09/2017 1:12 PM CLINICAL HISTORY: Newly diagnosed invasive bladder carcinoma. INDICATION: FDG-PET/CT is obtained for initial treatment evaluation. COMPARISON: No prior PET or CT studies are available for comparison. TECHNIQUE: Radiopharmaceutical: F-18 Fluorodeoxyglucose Administered activity: 11.6] mCi Route of administration: Intravenously via the right antecubital vein Localization time: 60 minutes Scan extent: Vertex of the skull to the feet Additional imaging: None Serum blood glucose: 220 CPT Code: 74705 FINDINGS: Head and Neck: There is no david hypermetabolism along the cervical chains. Tracer uptake in the head and neck mucosa is normal and symmetric. The brain is normal in appearance on CT scanning, and tracer uptake in the cerebral cortex is normal and symmetric. Chest: There there is no david hypermetabolism in mediastinal, hilar, or axillary chains. There are no suspicious pulmonary nodules. Abdomen and Pelvis: A Lorenz catheter is present within the lumen of the urinary bladder. The bladder wall is diffusely thickened on the CT portion of the examination, although the bladder itself is somewhat decompressed. The wall of the bladder, for example, measures up to 1.2 cm in thickness, and there is slight stranding in the fat adjacent to the bladder wall. There is faint, appreciable FDG activity within the wall of the bladder itself, but this is difficult to perceive due to the intense, physiologic FDG activity within the urine in the urinary bladder. Renal contours are normal, with physiologic tracer activity in the kidneys. There is mild bilateral ureterectasis. Scattered curvilinear regions of radiotracer activity are seen throughout the abdomen, the majority of which localizes to normal-appearing loops of bowel on the coacquired CT scan. There is, however, a segmental focus of intense tracer activity in the proximal sigmoid region. There are accompanying CT findings of bowel wall thickening (up to 1.5 cm) and pericolonic stranding. Tracer uptake in the hepatic parenchyma is homogeneous. The spleen is normal in size and FDG avidity. Musculoskeletal: There are no focal sites of osseous hypermetabolism. No suspicious lytic or sclerotic osseous lesions are identified. IMPRESSION: 1. Diffuse bladder wall thickening. This is consistent with known bladder carcinoma, although some of this thickening may be due to decompression of the bladder lumen from the presence of a Lorenz catheter. 2. No evidence of metastatic disease from bladder carcinoma. 3. Segmental thickening and hypermetabolism of the colonic wall in the proximal sigmoid segment. Notes indicate that the patient has a diagnosis of colitis, which could account for this finding; however, endoscopy could be considered to exclude the possibility of colon carcinoma. Signed: Arlet Frye MD Report Verified Date/Time: 09/14/2017 09:27:48 Performing Organization Address City/State/Zipcode Phone Number GE RIS POC-Glucose meter (09/09/2017 1:40 PM CDT)Only the most recent of4 resultswithin the time period is included. POC-Glucose Meter 220 (H)Comment: TESTED AT 70 - 110 mg/dL [facility] [address] [facility] [address] Specimen Blood Performing Organization Address [facility] Phone Number [address] [address] CENTER TRANSFUSION SERVICE REPORT - SCAN (08/20/2017 6:04 PM CDT) Narrative Performed At Tissue Exam (08/19/2017 6:30 PM CDT) Case Report Surgical Pathology Report Case: [id number] [facility] Authorizing Provider:Tyshawn Jorge MD Collected: 08/19/2017 1830 [facility] Ordering Location: [facility] PERIOPERATIVE Received: 08/20/2017 0843 SERVICES Pathologist: Nj Charles MD Specimens: A) - Bladder Biopsy, Left Wall, Left posterior wall biopsy B) - Bladder Biopsy, Right Wall, Right posterior wall biopsy C) - Prostatic, Prostatic urethra biopsy DIAGNOSIS A. URINARY BLADDER, LEFT POSTERIOR, TURBT: [facility] - UROTHELIAL CARCINOMA, HIGH GRADE (WHO GRADE 3), INVASIVE INTO MUSCULARIS PROPRIA [facility] - LYMPH-VASCULAR INVASION IS PRESENT B. URINARY BLADDER, RIGHT POSTERIOR, TURBT: - UROTHELIAL CARCINOMA, HIGH GRADE (WHO GRADE 3), INVASIVE INTO MUSCULARIS [place]RIA - LYMPH-VASCULAR INVASION IS NOT PRESENT C. PROSTATE, URETHRA, TURP: - UROTHELIAL CARCINOMA IN SITU WITH INVOLVEMENT OF PROSTATIC DUCTS Signing Pathologist Direct Phone Line: [phone] COMMENT There is a focus of invasive [facility] urothelial carcinoma on one [facility] of the chips from the prostate specimen. However, this piece show muscularis propria of the bladder wall and, therefore, represents a contaminating chip from one of the other tumor resections. CPT Code(s) A. 90320 [facility] B. 49586 [facility] C. [address]160 CLINICAL HISTORY Malignant neoplasm of [facility] urinary bladder [facility] SPECIMEN SOURCE A. Left posterior wall [facility] bladder biopsy. B. Right [facility] posterior wall bladder biopsy. C. Prostatic urethra biopsy GROSS DESCRIPTION Specimen is received in three containers of formalin all labeled with the patient's information. [facility] Specimen A: Labeled "left posterior wall biopsy bladder" consists of multiple fragments of zhong-red soft tissue measuring 2 x 2 x 0.5 cm in aggregate , submitted entirely in A1. Specimen B: Labeled "right posterior wall bladder biopsy" consists of multiple fragments of zhong-red soft tissue measuring 2 x 1.5 x 0.5 cm in aggregate, submitted entirely in B1 and B2. Specimen C: Labeled "prostatic urethra biopsy" consists of multiple fragments of zhong tissue measuring 1 x 1 x 0.4 cm in aggregate, submitted entirely in C1. CG/ew MICROSCOPIC DESCRIPTION Performed [facility] Specimen Tissue - Bladder Biopsy, Left Wall Performing Organization Address City/[facility]/Zipcode Phone Number [address] [address] CENTER Type and screen, automated (08/19/2017 10:33 AM CDT) ABO/RH AUTOMATED (BEAKER) O POSITIVE [facility] Ab Scrn NEGATIVE [facility] Specimen Blood Performing Organization Address City/[facility]/Zipcode Phone Number [address] [address] CBC with platelet count + automated diff (08/19/2017 10:33 AM CDT) WBC 8.6 3.5 - 10.5 K/L [facility] RBC 3.51 (L) 4.63 - 6.08 M/L [facility] Hemoglobin 7.2 (L) 13.7 - 17.5 GM/DL [facility] Hematocrit 26.5 (L) 40.1 - 51.0 % [facility] MCV 75.5 (L) 79.0 - 92.2 fL [facility] MCH 20.5 (L) 25.7 - 32.2 pg [facility] MCHC 27.2 (L) 32.3 - 36.5 GM/DL [facility] RDW 18.4 (H) 11.6 - 14.4 % [facility] Platelets 357 150 - 450 K/CU MM [facility] MPV 10.0 9.4 - 12.4 fL [facility] nRBC 0 0 - 0 /100 WBC [facility] % Neutros 70 % [facility] % Lymphs 19 % [facility] % Monos 9 % [facility] % Eos 2 % [facility] % Baso 1 % [facility] # Neutros 5.98 (H) 1.78 - 5.38 K/L [facility] # Lymphs 1.60 1.32 - 3.57 K/L [facility] # Monos 0.75 0.30 - 0.82 K/L [facility] # Eos 0.14 0.04 - 0.54 K/L [facility] # Baso 0.06 0.01 - 0.08 K/L [facility] Immature Granulocytes-Relative 1 0 - 1 % [facility] Specimen Blood Performing Organization Address City/State/Zipcode Phone Number [facility] [address] [place] [address] CENTER Basic Metabolic Panel (08/19/2017 10:33 AM CDT) Sodium 140 136 - 145 meq/L [facility] Potassium 4.0 3.5 - 5.1 meq/L [facility] Chloride 106 98 - 107 meq/L [facility] CO2 25 22 - 29 meq/L [facility] BUN 23 (H) 7 - 21 mg/dL [facility] Creatinine 1.53 (H) 0.57 - 1.25 mg/dL [facility] Glucose 103 70 - 105 mg/dL [facility] Calcium 9.4 8.4 - 10.2 mg/dL [facility] EGFR 46Comment: ESTIMATED GFR IS mL/min/1.73 sq m [facility] NOT ACCURATE CREATININE [facility] CLEARANCE IN PREDICTING GLOMERULAR FILTRATION RATE. ESTIMATED GFR IS NOT APPLICABLE FOR DIALYSIS PATIENTS. Specimen Blood Performing Organization Address City/State/Zipcode Phone Number [facility] [address] [place] [address] CENTER after 02/21/2017 Insurance Payer Benefit Plan / Subscriber ID Type Phone Address Group BLUE CROSS/BLUE BCBS ADV HMO xxxxxxxxxxxx [phone] [address] [place] [address] E (Home) [place] [address]
--- OUTSIDE RECORDS SUMMARY | 2018-02-22 07:47 | XMS REPORT ---
[...] End Status Dosage System Date Date Metoprolol [facility] 68879581346 100 MG Orally Active 1 tablet Tartrate Twice a day with food Amiloride-Hydr [facility] 85373810673 5-50 MG Orally Active 1 tablet ochlorothiazid Once a day with food e Lovastatin [facility] 66571556050 20 MG Orally Active 1 tablet Once a day with a meal Januvia [facility] 87489823356 100 MG Orally Active 1 tablet Once a day Lantus [facility] 52503295758 100 UNIT/ML Active not [employer]Star Subcutaneous defined Flomax [facility] 52850411037 0.4 MG Orally July 01, Active 2 capsule Once a day 2017 Dexilant [facility] 34867017466 60 MG Orally Active 1 capsule Once a day Celecoxib [facility] 42173381277 200 MG Orally Active 1 capsule Once a day with food Lisinopril [facility] 76248263868 2.5 MG Orally May 04, Active 1 tablet Once a day 2017 Gabapentin [facility] 93588790523 100 MG Orally Active 1 capsule Three times a day Metformin HCl [facility] 73093328474 1000 MG Orally Active 1 tablet Twice a day with meals Mesalamine [facility] 08207338387 1.2 GM Orally Active 2 tablets Once a day Results No Known Results Summary Purpose [employer] Submission
--- OUTSIDE RECORDS SUMMARY | 2018-02-22 07:47 | XMS REPORT ---
:1955 Author Organization [employer] Care Team Providers Name Role Phone Lane [...] Medications Results No Known Results Summary Purpose [employer] Submission
--- OUTSIDE RECORDS SUMMARY | 2018-02-22 07:47 | XMS REPORT ---
:1955 Author Organization [employer] Care Team Providers Name Role Phone Lane [...] Medications Results No Known Results Summary Purpose [employer] Submission
--- OUTSIDE RECORDS SUMMARY | 2018-02-22 07:47 | XMS REPORT ---
:1955 Author Organization [employer] Care Team Providers Name Role Phone Lane [...] Medications Results No Known Results Summary Purpose [employer] Submission
--- OUTSIDE RECORDS SUMMARY | 2018-02-22 07:47 | XMS REPORT ---
[...] Start End Date Status Dosage Date Flomax [facility] [id number] 0.4 MG Orally Active 2 capsule Once a day Results No Known Results Summary Purpose [employer] Submission
--- OUTSIDE RECORDS SUMMARY | 2018-02-22 07:48 | XMS REPORT ---
:1955 Author Organization [employer] Care Team Providers Name Role Phone Tiago Lane Provider Role Unavailable Allergies No Known Allergies Problems Problem Type Condition Code Onset Dates Condition Status Problem Mixed hyperlipidemia E78.2 Active Problem Hemorrhoids K64.9 Active Problem Benign essential hypertension, age I10 Active 0-18 Problem Microalbuminuria R80.9 Active Problem Urothelial carcinoma C68.9 Active Problem Unspecified kidney failure N19 Active Problem Iron deficiency anemia due to chronic D50.0 Active blood loss Problem BPH without urinary obstruction N40.0 Active Problem Colitis K52.9 Active Problem Diabetes mellitus type 2, controlled, E11.9 Active without complications Problem Non-alcoholic fatty liver disease K76.0 Active Medications No Known Medications Results No Known Results Summary Purpose [employer] Submission
--- OUTSIDE RECORDS SUMMARY | 2018-02-22 07:48 | XMS REPORT ---
:1955 Author Organization eClinicalWorks Care Team Providers Name Role Phone Tiago Lane Provider Role Unavailable Allergies, Adverse Reactions, Alerts Substance Reaction Event Type N.K.D.A. Info Not Available Non Drug Allergy Problems Problem Type Condition Code Onset Dates Condition Status Problem Mixed hyperlipidemia E78.2 Active Problem Hemorrhoids K64.9 Active Problem Benign essential hypertension, age I10 Active 0-18 Problem Urothelial carcinoma C68.9 Active Assessment Non-alcoholic fatty liver disease K76.0 Active Problem Unspecified kidney failure N19 Active Assessment Renal insufficiency N28.9 Active Problem Iron deficiency anemia due to chronic D50.0 Active blood loss Problem BPH without urinary obstruction N40.0 Active Problem Colitis K52.9 Active Problem Diabetes mellitus type 2, controlled, E11.9 Active without complications Problem Non-alcoholic fatty liver disease K76.0 Active Assessment Colitis K52.9 Active Assessment Mixed hyperlipidemia E78.2 Active Assessment BPH without urinary obstruction N40.0 Active Assessment Microalbuminuria R80.9 Active Assessment Benign essential hypertension, age I10 Active 0-18 Assessment Diabetes mellitus type 2, controlled, E11.9 Active without complications Assessment Iron deficiency anemia due to chronic D50.0 Active blood loss Assessment Urothelial carcinoma C68.9 Active Problem Microalbuminuria R80.9 Active Medications Medication Code Code Instructions Start End Status Dosage System Date Date Celecoxib [facility] 56706619337 200 Active TAKE 1 CAPSULE BY MOUTH DAILY Januvia [facility] 68228044608 100 Active TAKE 1 TABLET BY MOUTH DAILY Januvia [facility] 65939849889 100 MG Orally Active 1 tablet Once a day Gabapentin [facility] 96677157591 100 MG Orally Active 1 capsule Three times a day Ed Contour [facility] 30749529256 - In Vitro August 25, Active use with Next Test twice daily 2017 glucometer Lantus SoloStar [facility] 49555670480 100 UNIT/ML Active not defined Subcutaneous Lantus SoloStar [facility] 45060570541 100 UNIT/ML Active INJECT 70 UNITS UNDER THE SKIN AT BEDTIME Tamsulosin HCl [facility] 38425291915 0.4 Active TAKE 2 CAPSULES BY MOUTH ONCE A DAY Celecoxib [facility] 55720010471 200 MG Orally Active 1 capsule Once a day with food Pantoprazole [facility] 16012478890 40 MG Orally Active 1 tablet Sodium Once a day Ferrous Sulfate [facility] 34332310449 325 (65 Fe) MG Active 1 tablet Orally twice a day Amiloride-[place]inger [facility] 24297694164 5-50 MG Orally Active 1 tablet chlorothiazide Once a day with food Metoprolol [facility] 41795833582 50 MG Orally Active 1 tablet Tartrate Twice a day with food Amiloride-Novinger [facility] 82544308750 5-50 MG Active TAKE 1 chlorothiazide TABLET BY MOUTH DAILY Lovastatin [facility] 50873172330 20 Active TAKE 1 TABLET BY MOUTH DAILY Finasteride [facility] 37973899809 5 MG Orally Active 1 tablet Once a day Metformin HCl [facility] 60802851620 1000 Active TAKE 1 TABLET BY MOUTH TWICE DAILY Metformin HCl [facility] 35684155977 1000 MG Orally Active 1 tablet Twice a day with meals Lovastatin [facility] 36290844529 20 MG Orally Active 1 tablet Once a day with a meal Mesalamine [facility] 60170620358 1.2 GM Orally Active 2 tablets Twice a day Results No Known Results Summary Purpose eClinicalWorks Submission
--- OUTSIDE RECORDS SUMMARY | 2018-02-22 07:48 | XMS REPORT ---
[...] Medications Results No Known Results Summary Purpose eClinicalAMSC Submission
--- OUTSIDE RECORDS SUMMARY | 2018-02-22 07:48 | XMS REPORT ---
:1955 [facility] [address] [place] [id number] Care Team Providers Name Role Phone RUBY SIFUENTES Unavailable Unavailable Problems This patient has no known problems. Allergies, Adverse Reactions, Alerts This patient has no known allergies or adverse reactions. Medications This patient has no known medications. Results Test Description Test Time Test Comments Text Results Atomic Results Result Comments PET/CT, 2017-09-14 Reason for FINAL REPORT WHOLE BODY 09:27:00 exam:->Malignant EXAMINATION: FDG-PET/CT, 09/09/2017 PI neoplasm of urinary 1:12 PM CLINICAL HISTORY: Newly bladder diagnosed invasive bladder carcinoma.INDICATION: FDG-PET/CT is obtained for initial treatment evaluation.COMPARISON: No prior PET or CT studies are available for comparison. TECHNIQUE:Radiopharmaceutical: F-18 FluorodeoxyglucoseAdministered activity: 11.6] mCiRoute of administration: Intravenously via the right antecubital veinLocalization time: 60 minutesScan extent: Vertex of the skull to the feetAdditional imaging: NoneSerum blood glucose: 220CPT Code: 70179 FINDINGS:Head and Neck: There is no david hypermetabolism [...] possibility of colon carcinoma. Signed: Arlet Frye Verified Date/Time: 09/14/2017 09:27:48 -GLUCOSE METER 2017-09-09 13:41:00 Test Item Value Reference Range Comments POC-GLUCOSE METER (BEAKER) (test 220 mg/dL 70-110 TESTED AT [facility] [address] awdb=3229) [facility] [address] TISSUE [id number] 16:03:00Surgical Pathology Report Case: [id number] Authorizing Provider: Ruby Sifuentes MD Collected: 08/19/2017 1830 Ordering Location: [facility] Received: 08/20/2017 0843 SERVICES Pathologist: Nj Charles MD Specimens: A) - Bladder Biopsy, Left Wall, Left posterior wall biopsy B) - Bladder Biopsy, Right Wall, Right posterior wall biopsy C) - Prostatic, Prostatic urethra biopsy A. URINARY BLADDER, LEFT POSTERIOR, TURBT : - UROTHELIAL CARCINOMA, HIGH GRADE (WHO GRADE 3), INVASIVE INTO MUSCULARIS PROPRIA -LYMPH-VASCULAR INVASION IS PRESENTB. URINARY BLADDER, RIGHT POSTERIOR, TURBT: - UROTHELIAL CARCINOMA, HIGH GRADE (WHO GRADE 3), INVASIVE INTO MUSCULARIS PROPRIA - LYMPH-VASCULAR INVASION IS NOT PRESENTC. PROSTATE, URETHRA , TURP: - UROTHELIAL CARCINOMA IN SITU WITH INVOLVEMENT OF PROSTATIC DUCTS Signing Pathologist Direct Phone Line: [phone] signed by Nj Charles MD on 08/21/2017 at 4:03 PMThere is a focus of invasive urothelial carcinoma on one of the chips fromthe prostate specimen. However, this piece show muscularis propria of the bladder wall and, therefore, represents a contaminating chip from one of the other tumor resections.A. 07852S. 65659T. 28062Usrtutpwp neoplasm of urinary bladderA. Left posterior wall bladder biopsy. B. Right posterior wall bladder biopsy. C. Prostatic urethra biopsySpecimen is received in three containers of formalin all labeled with the patient's information.Specimen A: Labeled "left posterior wall biopsy bladder" consists of multiple fragments of zhong-red soft tissue measuring 2 x 2 x 0.5 cm in aggregate, submitted entirely in A1.Specimen B: Labeled "right posterior wall bladder biopsy" consists of multiple fragments of zhong-red soft tissue measuring 2 x 1.5 x 0.5 cm in aggregate, submitted entirely in B1 and B2.Specimen C: Labeled "prostatic urethra biopsy" consists of multiple fragments of zhong tissue measuring 1 x 1 x 0.4 cm in aggregate, submitted entirely in C1. CG/ew PerformedPOCT-GLUCOSE [id number] 18:21:00 Test Item Value Reference Range Comments POC-GLUCOSE METER (BEAKER) 178 mg/dL 70-110 TESTED AT [facility] [address] (test aojr=8265) [facility] [address] POCT-GLUCOSE [id number] 17:31:00 Test Item Value Reference Range Comments POC-GLUCOSE METER (BEAKER) 67 mg/dL 70-110 TESTED AT [place] [id number] (test plsb=7831) [facility] [address] BASIC METABOLIC [id number] 11:25:00 Test Item Value Reference Range Comments SODIUM (BEAKER) (test 140 meq/L 136-145 bfvk=411) POTASSIUM (BEAKER) (test 4.0 meq/L 3.5-5.1 qqyn=933) CHLORIDE (BEAKER) (test 106 meq/L 98-107 xuet=312) CO2 (BEAKER) (test 25 meq/L 22-29 idyj=851) BLOOD UREA NITROGEN 23 mg/dL 7-21 (BEAKER) (test zoru=670) CREATININE (BEAKER) (test 1.53 mg/dL 0.57-1.25 bkgc=132) GLUCOSE RANDOM (BEAKER) 103 mg/dL 70-105 (test wggy=983) CALCIUM (BEAKER) (test 9.4 mg/dL 8.4-10.2 pfjh=466) EGFR (BEAKER) (test 46 mL/min/1.73 sq m ESTIMATED GFR IS NOT mppi=3796) ACCURATE CREATININE CLEARANCE IN PREDICTING GLOMERULAR FILTRATION RATE. ESTIMATED GFR IS NOT APPLICABLE FOR DIALYSIS PATIENTS. CBC W/PLT COUNT & AUTO [id number] 11:10:00 Test Item Value Reference Range Comments WHITE BLOOD CELL COUNT (BEAKER) (test qhao=466) 8.6 K/ L 3.5-10.5 RED BLOOD CELL COUNT (BEAKER) (test deot=049) 3.51 M/ L 4.63-6.08 HEMOGLOBIN (BEAKER) (test kvax=286) 7.2 GM/DL 13.7-17.5 HEMATOCRIT (BEAKER) (test pfvk=168) 26.5 % 40.1-51.0 MEAN CORPUSCULAR VOLUME (BEAKER) (test zpar=422) 75.5 fL 79.0-92.2 MEAN CORPUSCULAR HEMOGLOBIN (BEAKER) (test 20.5 pg 25.7-32.2 lvun=171) MEAN CORPUSCULAR HEMOGLOBIN CONC (BEAKER) (test 27.2 GM/DL 32.3-36.5 bxzm=071) RED CELL DISTRIBUTION WIDTH (BEAKER) (test 18.4 % 11.6-14.4 yhcj=843) PLATELET COUNT (BEAKER) (test evdl=355) 357 K/CU MM 150-450 MEAN PLATELET VOLUME (BEAKER) (test ugru=976) 10.0 fL 9.4-12.4 NUCLEATED RED BLOOD CELLS (BEAKER) (test 0 /100 WBC 0-0 zksr=519) NEUTROPHILS RELATIVE PERCENT (BEAKER) (test 70 % hwiz=279) LYMPHOCYTES RELATIVE PERCENT (BEAKER) (test 19 % jzhr=547) MONOCYTES RELATIVE PERCENT (BEAKER) (test 9 % xene=976) EOSINOPHILS RELATIVE PERCENT (BEAKER) (test 2 % ciui=630) BASOPHILS RELATIVE PERCENT (BEAKER) (test 1 % qcsn=393) NEUTROPHILS ABSOLUTE COUNT (BEAKER) (test 5.98 K/ L 1.78-5.38 ceiz=866) LYMPHOCYTES ABSOLUTE COUNT (BEAKER) (test 1.60 K/ L 1.32-3.57 lmwk=266) MONOCYTES ABSOLUTE COUNT (BEAKER) (test 0.75 K/ L 0.30-0.82 fbdz=543) EOSINOPHILS ABSOLUTE COUNT (BEAKER) (test 0.14 K/ L 0.04-0.54 tiaq=184) BASOPHILS ABSOLUTE COUNT (BEAKER) (test 0.06 K/ L 0.01-0.08 zwaz=768) IMMATURE GRANULOCYTES-RELATIVE PERCENT (BEAKER) 1 % 0-1 (test ctec=6690) POCT-GLUCOSE [id number] 10:38:00 Test Item Value Reference Range Comments POC-GLUCOSE METER (BEAKER) 118 mg/dL 70-110 TESTED AT [facility] [address] (test rjuu=8763) [facility] [address]
--- OUTSIDE RECORDS SUMMARY | 2018-02-22 07:48 | XMS REPORT ---
[...] Medications Results No Known Results Summary Purpose eClinicalJouleX Submission
--- OUTSIDE RECORDS SUMMARY | 2018-02-22 07:48 | XMS REPORT ---
[...] Medications Results No Known Results Summary Purpose eClinicalTIM Group Submission
--- OUTSIDE RECORDS SUMMARY | 2018-02-22 07:48 | XMS REPORT ---
[...] Medications Results No Known Results Summary Purpose eClinicalChooos Submission
--- OUTSIDE RECORDS SUMMARY | 2018-02-22 07:48 | XMS REPORT ---
[...] Medications Results No Known Results Summary Purpose [facility]Clinical[facility]oyalty [facility] Submission
--- OUTSIDE RECORDS SUMMARY | 2018-02-22 07:48 | XMS REPORT ---
[...] Start End Status Dosage System Date Date Ferrous Sulfate [facility] 98818642428 325 (65 Fe) MG Active 1 tablet Orally twice a day Januvia [facility] 06551557335 100 Active TAKE 1 TABLET BY MOUTH DAILY Tamsulosin HCl [facility] [address]-20 0.4 BID Active TAKE 1 CAPSULES BY MOUTH ONCE A DAY Lovastatin [facility] 99830548828 20 Active TAKE 1 TABLET BY MOUTH DAILY Lisinopril [facility] 90157430481 2.5 MG Orally Inactive 1 tablet Once a day Dexilant [facility] 91319672166 60 MG Orally Inactive 1 capsule Once a day Amiloride-[place] [facility] 07090171275 5-50 MG Active TAKE 1 chlorothiazide TABLET BY MOUTH DAILY. Metformin HCl [facility] 57725004533 1000 Active TAKE 1 TABLET BY MOUTH TWICE DAILY Finasteride [facility] 17782054435 5 MG Orally Active 1 tablet Once a day Pantoprazole [facility] 67406698476 40 MG Orally Active 1 tablet Sodium Once a day Mesalamine [facility] 90956673567 1.2 GM Orally Active 2 tablets Twice a day Amiloride-[place] [facility] 00434970186 5-50 MG Orally Active 1 tablet chlorothiazide Once a day with food Metformin HCl [facility] 21577671070 1000 MG Orally Active 1 tablet Twice a day with meals Lantus SoloStar [facility] 66149935201 100 UNIT/ML Active not defined Subcutaneous Lantus SoloStar [facility] [address]-97 100 UNIT/ML Active INJECT 45 UNITS UNDER THE SKIN AT BEDTIME Ed Contour [facility] 77518394674 - In Vitro August Active use with Next Test twice daily 17, glucometer 2017 Celecoxib [facility] 23990689976 200 MG Orally Active 1 capsule Once a day with food Metoprolol [facility] 95161119825 50 MG Orally Active 1 tablet Tartrate Twice a day with food Januvia [facility] 56252754365 100 MG Orally Active 1 tablet Once a day Gabapentin [facility] 88852534025 100 MG Orally Active 1 capsule Three times a day Lovastatin [facility] 95417972342 20 MG Orally Active 1 tablet Once a day with a meal Results No Known Results Summary Purpose eClinicalWorks Submission
--- OUTSIDE RECORDS SUMMARY | 2018-02-22 07:48 | XMS REPORT ---
[...] Medications Results No Known Results Summary Purpose [employer] Submission
--- OUTSIDE RECORDS SUMMARY | 2018-02-22 07:48 | XMS REPORT ---
:1955 Author Organization [employer]ter[employer] Care Team Providers Name Role Phone Lane [...] Medications Results No Known Results Summary Purpose [facility]ter[facility] Submission
--- OUTSIDE RECORDS SUMMARY | 2018-02-22 07:48 | XMS REPORT ---
[...] Non-alcoholic fatty liver disease K76.0 Active Medications Medication Code Code Instructions Start End Status Dosage System Date Date Ed Contour [facility] 58502477961 - In Vitro August 25, Active use with Next Test twice daily 2018 glucometer Results No Known Results Summary Purpose [employer] Submission
[2018-02-22] MEDS ORDERED: NA CHLORIDE 0.9% 500 ML ONE (09:06)
[2018-02-22] MEDS ORDERED: ACETYLCYST 20% 800 MG/4 ML VIAL ONE (09:39)
[2018-02-22] MEDS ORDERED: HEPA 1000U/500MLS 1,000 UNIT/500 ML BAG IV ONE ×2 (09:49→09:54)
[2018-02-22] MEDS ORDERED: HEPARIN 5000 UNIT/ML 1 ML VIAL ONE (09:49)
[2018-02-22] MEDS ORDERED: NITROGLYCERIN 100 MCG/ML SYR (for cath lab use only) IV ONE (09:50)
[2018-02-22] MEDS ORDERED: NICARDIPINE HCL 25 MG/10 ML IV ONE (09:50)
[2018-02-22] MEDS ORDERED: NITROGLYCERIN/D5W 25 MG/250 ML BTL IV ONE (09:50)
[2018-02-22 10:04] LABS: Potassium 4.8 mmol/L (3.5-5.1)
[2018-02-22] MEDS ORDERED: FENTANYL CITR 100 MCG/2 ML ONE (10:13)
[2018-02-22] MEDS ORDERED: MIDAZOLAM HCL 2 MG/2 ML INJ ONE ×2 (10:13→10:33)
--- NOTE | 2018-02-22 23:31 | OP ---
Date of Procedure: 02/22/2018 Surgeon: Doni Victoria MD Primary Care Physician: Hany Ordoñez M.D. Procedure: Left heart catheterization with coronary angiography. No LV gram was done. We used the smallest amount of contrast possible because of renal insufficiency, 28 cc total was used. Procedure Findings: The patient has a left main coronary stenosis of 60%. The LAD has several 50% l esions within it. The circumflex goes all the way too, but does not give rise to the posterior desce nding, so it is left dominant or codominant system. It is free of any significant stenosis. The rig ht coronary is small, but does give rise to the PDA. It is free of any significant stenosis. Left v entricular end-diastolic pressure was 16, and I recommend the patient to undergo coronary bypass surg mary before he gets his bladder cancer surgery. DWIGHT/TONI Voice ID: [id number] Report ID: [id number]
== END 2018-02-22 13:05 | disposition home health service (06) ==
LOC: CCL 07:43
PROVIDERS: ATTEND Internal Medicine
DX: I25.10 Atherosclerotic heart disease of native coronary artery without angina pectoris (principal); I10 Essential (primary) hypertension; C67.9 Malignant neoplasm of bladder, unspecified; E11.9 Type 2 diabetes mellitus without complications; E78.5 Hyperlipidemia, unspecified; Z87.891 Personal history of nicotine dependence; Z88.8 Allergy status to other drugs, medicaments and biological substances; Z82.49 Family history of ischemic heart disease and other diseases of the circulatory system
CPT/HCPCS: 36415 ×2; 80048 ×2; 82962 ×2; 85025; 85610; 85730; 93458; C1893; J1644; J2250 ×2; J3010

== ENCOUNTER 2018-09-28 10:43 | Emergency (ER) | payer OTHER ==
--- OUTSIDE RECORDS SUMMARY | 2018-09-28 10:47 | XMS REPORT | Clinical Summary ---
:1955 Author Organization [facility] Address [address] [place] [address] Care Team Providers Name Role Phone Lane Ordoñez Primary Care Provider Bhupendra Ramirez Unavailable Allergies No Known Allergies Medications Medication Sig Dispensed Refills Start End Status Date Date SITagliptin Take 100 mg by 0 Active (JANUVIA) 100 MG mouth daily. tablet gabapentin Take 100 mg by 0 Active (NEURONTIN) 100 MG mouth 3 (three) capsule times daily . tamsulosin (FLOMAX) Take 0.8 mg by 0 Active 0.4 mg Cp24 24 hr mouth daily . capsule mesalamine (LIALDA) Take 600 mg by 0 Active 1.2 gram EC tablet mouth 2 (two) times daily . dexlansoprazole 60 Take 60 mg by 0 Active mg capsule mouth as needed . phenazopyridine Take 100 mg by 0 Active (PYRIDIUM) 100 MG mouth 2 (two) tablet times daily as needed for Pain . ferrous sulfate 325 Take 325 mg by 0 Active (65 FE) MG tablet mouth daily with breakfast. finasteride Take 5 mg by mouth 0 Active (PROSCAR) 5 mg daily. tablet insulin glargine Inject 45 Units 0 Active (LANTUS) 100 subcutaneously unit/mL injection nightly Use as directed . metoprolol Take 1 tablet (25 60 tablet 1 Active (LOPRESSOR) 25 MG mg total) by mouth 9 020 tablet 2 (two) times daily No more refills through my office. furosemide (LASIX) Take 1 tablet (40 30 tablet 1 Active 40 MG tablet mg total) by mouth 9 020 daily No more refills through my office. atorvastatin Take 1 tablet (40 30 tablet 1 Active (LIPITOR) 40 MG mg total) by mouth 9 020 tablet nightly No more refills through my office. losartan (COZAAR) Take 1 tablet (50 30 tablet 1 Active 50 MG tablet mg total) by mouth 9 020 daily No more refills through my office. potassium chloride Take 1 tablet (10 30 tablet 1 Active SA (K-DUR,KLOR-CON) mEq total) by 9 020 10 MEQ tablet mouth daily Use only if taking furosemide/Lasix. No more refills through my office. magnesium oxide Take 1 tablet (400 30 tablet 1 Active (MAG-OX) 400 mg mg total) by mouth 9 020 (241.3 mg daily No more magnesium) tablet refills through my office. celecoxib Take 200 mg by 0 Active (CELEBREX) 200 MG mouth daily. capsule amiloride-hydroCHLO Take 1 tablet by 0 Active ROthiazide mouth daily. (MODURETIC) 5-50 mg tablet amiloride-hydroCHLO Take 1 tablet by 0 Discontinued ROthiazide mouth daily. 019 (MODURETIC) 5-50 mg tablet metoprolol Take 50 mg by 0 Discontinued (LOPRESSOR) 50 MG mouth 2 (two) 019 tablet times daily. celecoxib Take 200 mg by 0 Discontinued (CELEBREX) 200 MG mouth daily . 019 capsule metFORMIN Take 1,000 mg by 0 Discontinued (GLUCOPHAGE) 1000 mouth 2 (two) 019 MG tablet times daily with breakfast and dinner. lovastatin Take 20 mg by 0 Discontinued (MEVACOR) 20 MG mouth nightly. 019 tablet neomycin-bacitracin Apply 3 times a 0 Discontinued -polymyxin day to tape fung 9 (NEOSPORIN) on chest. Is 3.5mg-400 unit- geeh-raz-yhdhbpf.. 5,000 unit/gram ointment aspirin 81 MG EC Take 1 tablet (81 30 tablet 1 Discontinued tablet mg total) by mouth 9 019 daily No more refills through my office. HYDROcodone-acetami Take 1 tablet by 30 tablet 0 nophen (NORCO mouth every 6 9 019 5-325) 5-325 mg per (six) hours as tablet needed for Pain for up to 10 days No more refills through my office. polyethylene glycol Use daily per 0 Discontinued (GLYCOLAX) 17 gram package 9 019 packet instructions. Is sszr-rgg-uvtnvre.. oxybutynin Take 1 tablet (5 42 tablet 0 Discontinued (DITROPAN) 5 MG mg total) by mouth 9 019 tablet 3 (three) times daily for 14 days. nitrofurantoin, Take 1 capsule 14 capsule 0 Discontinued macrocrystal-monohy (100 mg total) by 9 019 drate, (MACROBID) mouth 2 (two) 100 MG capsule times daily for 7 days. nitrofurantoin, Take 1 capsule 14 capsule 0 macrocrystal-monohy (100 mg total) by 9 019 drate, (MACROBID) mouth 2 (two) 100 MG capsule times daily for 7 days. oxybutynin Take 1 tablet (5 42 tablet 0 (DITROPAN) 5 MG mg total) by mouth 9 019 tablet 3 (three) times daily for 14 days. metFORMIN Take 1,000 mg by 0 Discontinued (GLUCOPHAGE) 1000 mouth 2 (two) 019 MG tablet times daily with breakfast and dinner. acetaminophen-codei Take 1 tablet by 30 tablet 0 ne (TYLENOL-CODEINE mouth every 4 9 019 #3) 300-30 mg per (four) hours as tablet needed for up to 10 days. Max Daily Amount: 6 tablets docusate sodium Take 1 capsule 10 capsule 0 (COLACE) 100 MG (100 mg total) by 9 019 capsule mouth 2 (two) times daily for 10 days. enoxaparin Inject 0.4 mLs (40 12 mL 0 (LOVENOX) 40 mg/0.4 mg total) 9 019 mL Syrg subcutaneously daily for 30 days. ciprofloxacin HCl Take 1 tablet (500 10 tablet 0 (CIPRO) 500 MG mg total) by mouth 9 019 tablet 2 (two) times daily for 5 days Start this med on the day prior to appt for cystogram, lawson removal.. Active Problems Problem Noted Date Ulcerative (chronic) enterocolitis 05/18/2018 BPH (benign prostatic hyperplasia) 05/18/2018 Acid reflux 05/18/2018 Hypertension 05/18/2018 Overview: bp med controlled >10 yrs. per pt, well managed. avg 130/65 Acute postoperative pain 05/18/2018 S/P lap robotic assist cystectomy & neobladder diversion 05/18/2018 S/P CABG (coronary artery bypass graft) 03/09/2018 Coronary artery disease 03/03/2018 Bladder tumor 08/19/2017 Bladder cancer 08/19/2017 Insulin dependent diabetes mellitus Overview: dm med controlled since approx 2007, cks bs 1x daily. fbs avg 160 Kidney function abnormal Encounters Date Type Specialty Care Team Description 06/07/2018 Hospital Encounter [facility] Malignant neoplasm andria Villagran MD overlapping sites of bladder (HCC) 06/07/2018 Outside Orders Central Scheduling Felicia Jorge MD overlapping sites of bladder (HCC) (Primary Dx) 05/17/2018 Anesthesia Event Ishan Gandhi Jr., MD 05/17/2018 Surgery PARVIZ Jorge MD LAPAROSCOPY,CYSTECTOM Y ILEAL LOOP 05/17/2018 - Hospital Encounter General Internal [facility], Acute postoperative pain; 05/24/2018 Medicine MD Tyshawn Malignant neoplasm of urinary bladder, unspecified site (HCC); Essential hypertension; Hyperkalemia 05/14/2018 Hospital Encounter Pre-Admission Resource, Oqmt Testing Preadmit Phone 04/27/2018 Travel 04/26/2018 Anesthesia Event Yo Gresham MD 04/26/2018 Surgery [facility], CYSTOSCOPY,BLUE LIGHT MD Tyshawn CYSVIEW 04/26/2018 - Hospital Encounter General Internal [facility], 04/27/2018 Sunil Villagran MD 04/16/2018 Hospital Encounter Pre-Admission Resource, Oqmt Testing Preadmit Phone 03/03/2018 Surgery Too [place],AORTO CORONARY MD Alisson YULY/SVG 03/03/2018 Anesthesia Event Deni Garcia MD 03/03/2018 - Hospital Encounter Cardiology Too [place] S/P CABG ( coronary artery bypass graft) (Primary Dx); 03/09/2018 MD Alisson 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); Miryam Casiano Acute respiratory failure with hypoxia (HCC) MD Gallo 02/23/2018 Hospital Encounter Too [place] Malignant neoplasm of MD Alisson posterior wall of urinary bladder (HCC) 02/23/2018 Office Visit Cardiology Too [place] Insulin dependent diabetes mellitus (HCC); MD Alisson Kidney function abnormal 02/23/2018 Orders Only General Internal Medicine 02/11/2018 Hospital Encounter Pre-Admission Resource, Oqmt Testing Preadmit Phone 02/11/2018 Hospital Encounter Pre-Admission Octavio Jorge MD Resource, Oqmt Preadmit Phone after 09/27/2017 Family History Medical History Relation Name Comments Heart disease Father Heart failure Father Stroke Father COPD Mother Stroke Mother Relation Name Status Comments Father Mother Social History Tobacco Use Types Packs/Day Years Used Date Former Smoker 1.5 30 Quit: 1987 Smokeless Tobacco: Never Used Tobacco Cessation: Counseling Given: No Alcohol Use Drinks/Week oz/Week Comments No Sex Assigned at Date Recorded Not on file Job Start Date Occupation Industry Not on file Not on file Not on file Travel History Travel Start Travel End No recent travel history available. Last Filed Vital Signs Vital Sign Reading Time Taken Blood Pressure 164/74 05/24/2018 11:57 AM CDT Pulse 69 05/24/2018 12:11 PM CDT Temperature 36.1 C (97 F) 05/24/2018 11:57 AM CDT Respiratory Rate 18 05/24/2018 12:11 PM CDT Oxygen Saturation 99% 05/24/2018 12:11 PM CDT Inhaled Oxygen Concentration 21% 05/22/2018 3:14 AM CDT Weight 99.8 kg (220 lb 1.6 oz) 05/21/2018 12:00 PM CDT Height 175.3 cm (5' 9") 05/20/2018 7:10 PM CDT Body Mass Index 32.5 05/21/2018 12:00 PM CDT Plan of Treatment Not on file Procedures Procedure Name Priority Date/Time Associated Comments Diagnosis FL CYSTOGRAM STATIC Routine 06/07/2018 2:15 Results for this PM CDT procedure are in the results section. RHYTHM STRIP - SCAN 05/25/2018 11:41 AM CDT POCT-GLUCOSE METER Routine 05/24/2018 12:09 Results for this PM CDT procedure are in the results section. POCT-GLUCOSE METER Routine 05/24/2018 7:19 Results for this AM CDT procedure are in the results section. BASIC METABOLIC PANEL Routine 05/24/2018 5:13 Results for this (7) AM CDT procedure are in the results section. MAGNESIUM Routine 05/24/2018 5:13 Results for this AM CDT procedure are in the results section. PHOSPHORUS Routine 05/24/2018 5:13 Results for this AM CDT procedure are in the results section. PT/APTT Routine 05/24/2018 5:13 Results for this AM CDT procedure are in the results section. POCT-GLUCOSE METER Routine 05/24/2018 1:16 Results for this AM CDT procedure are in the results section. POCT-GLUCOSE METER Routine 05/23/2018 9:08 Results for this PM CDT procedure are in the results section. POCT-GLUCOSE METER Routine 05/23/2018 6:46 Results for this PM CDT procedure are in the results section. POCT-GLUCOSE METER Routine 05/23/2018 5:15 Results for this PM CDT procedure are in the results section. POCT-GLUCOSE METER Routine 05/23/2018 2:22 Results for this PM CDT procedure are in the results section. URINE CULTURE Routine 05/23/2018 9:52 Results for this AM CDT procedure are in the results section. POCT-GLUCOSE METER Routine 05/23/2018 8:27 Results for this AM CDT procedure are in the results section. POCT-GLUCOSE METER Routine 05/23/2018 7:54 Results for this AM CDT procedure are in the results section. CBC W/PLT COUNT & AUTO Routine 05/23/2018 6:35 Results for this DIFFERENTIAL AM CDT procedure are in the results section. CBC W/PLT COUNT & AUTO Routine 05/23/2018 6:35 Results for this DIFFERENTIAL AM CDT procedure are in the results section. BASIC METABOLIC PANEL Routine 05/23/2018 6:35 Results for this (7) AM CDT procedure are in the results section. MAGNESIUM Routine 05/23/2018 6:35 Results for this AM CDT procedure are in the results section. PHOSPHORUS Routine 05/23/2018 6:35 Results for this AM CDT procedure are in the results section. PT/APTT Routine 05/23/2018 6:35 Results for this AM CDT procedure are in the results section. POCT-GLUCOSE METER Routine 05/23/2018 12:59 Results for this AM CDT procedure are in the results section. POCT-GLUCOSE METER Routine 05/22/2018 10:01 Results for this PM CDT procedure are in the results section. POCT-GLUCOSE METER Routine 05/22/2018 6:18 Results for this PM CDT procedure are in the results section. POCT-GLUCOSE METER Routine 05/22/2018 12:13 Results for this PM CDT procedure are in the results section. POCT-GLUCOSE METER Routine 05/22/2018 7:24 Results for this AM CDT procedure are in the results section. CBC W/PLT COUNT & AUTO Routine 05/22/2018 5:55 Results for this DIFFERENTIAL AM CDT procedure are in the results section. CBC W/PLT COUNT & AUTO Routine 05/22/2018 5:55 Results for this DIFFERENTIAL AM CDT procedure are in the results section. BASIC METABOLIC PANEL Routine 05/22/2018 5:55 Results for this (7) AM CDT procedure are in the results section. MAGNESIUM Routine 05/22/2018 5:55 Results for this AM CDT procedure are in the results section. PHOSPHORUS Routine 05/22/2018 5:55 Results for this AM CDT procedure are in the results section. PT/APTT Routine 05/22/2018 5:55 Results for this AM CDT procedure are in the results section. POCT-GLUCOSE METER Routine 05/22/2018 3:41 Results for this AM CDT procedure are in the results section. POCT-GLUCOSE METER Routine 05/21/2018 9:39 Results for this PM CDT procedure are in the results section. XR CHEST 1 VIEW STAT 05/21/2018 1:24 Results for this PORTABLE/BEDSIDE PM CDT procedure are in the results section. POCT-GLUCOSE METER Routine 05/21/2018 1:10 Results for this PM CDT procedure are in the results section. POCT-GLUCOSE METER Routine 05/21/2018 8:18 Results for this AM CDT procedure are in the results section. (CELLAVISION MANUAL Routine 05/21/2018 8:16 Results for this DIFF) AM CDT procedure are in the results section. CBC W/PLT COUNT & AUTO Routine 05/21/2018 8:16 Results for this DIFFERENTIAL AM CDT procedure are in the results section. CBC W/PLT COUNT & AUTO Routine 05/21/2018 8:16 Results for this DIFFERENTIAL AM CDT procedure are in the results section. CREATININE, BODY FLUID Routine 05/21/2018 7:53 Results for this AM CDT procedure are in the results section. BASIC METABOLIC PANEL Routine 05/21/2018 3:37 Results for this (7) AM CDT procedure are in the results section. MAGNESIUM Routine 05/21/2018 3:37 Results for this AM CDT procedure are in the results section. PHOSPHORUS Routine 05/21/2018 3:37 Results for this AM CDT procedure are in the results section. PT/APTT Routine 05/21/2018 3:37 Results for this AM CDT procedure are in the results section. POCT-GLUCOSE METER Routine 05/20/2018 9:45 Results for this PM CDT procedure are in the results section. INTRAOPERATIVE PATH 05/20/2018 12:32 REPORT - SCAN PM CDT INTRAOPERATIVE PATH 05/20/2018 12:32 REPORT - SCAN PM CDT POCT-GLUCOSE METER Routine 05/20/2018 11:46 Results for this AM CDT procedure are in the results section. POCT-GLUCOSE METER Routine 05/20/2018 5:46 Results for this AM CDT procedure are in the results section. CBC W/PLT COUNT & AUTO Routine 05/20/2018 3:26 Results for this DIFFERENTIAL AM CDT procedure are in the results section. MAGNESIUM Routine 05/20/2018 3:26 Results for this AM CDT procedure are in the results section. PHOSPHORUS Routine 05/20/2018 3:26 Results for this AM CDT procedure are in the results section. PT/APTT Routine 05/20/2018 3:26 Results for this AM CDT procedure are in the results section. CBC W/PLT COUNT & AUTO Routine 05/20/2018 3:26 Results for this DIFFERENTIAL AM CDT procedure are in the results section. BASIC METABOLIC PANEL Routine 05/20/2018 3:26 Results for this (7) AM CDT procedure are in the results section. POCT-GLUCOSE METER Routine 05/19/2018 11:49 Results for this PM CDT procedure are in the results section. POCT-GLUCOSE METER Routine 05/19/2018 6:27 Results for this PM CDT procedure are in the results section. CBC W/PLT COUNT & AUTO STAT 05/19/2018 3:55 Results for this DIFFERENTIAL PM CDT procedure are in the results section. CBC W/PLT COUNT & AUTO STAT 05/19/2018 3:55 Results for this DIFFERENTIAL PM CDT procedure are in the results section. POCT-GLUCOSE METER Routine 05/19/2018 3:22 Results for this PM CDT procedure are in the results section. POCT-GLUCOSE METER Routine 05/19/2018 11:35 Results for this AM CDT procedure are in the results section. POCT-GLUCOSE METER Routine 05/19/2018 6:13 Results for this AM CDT procedure are in the results section. CBC W/PLT COUNT & AUTO Routine 05/19/2018 4:17 Results for this DIFFERENTIAL AM CDT procedure are in the results section. HEMOGLOBIN A1C Routine 05/19/2018 4:17 Results for this AM CDT procedure are in the results section. MAGNESIUM Routine 05/19/2018 4:17 Results for this AM CDT procedure are in the results section. PHOSPHORUS Routine 05/19/2018 4:17 Results for this AM CDT procedure are in the results section. PT/APTT Routine 05/19/2018 4:17 Results for this AM CDT procedure are in the results section. CBC W/PLT COUNT & AUTO Routine 05/19/2018 4:17 Results for this DIFFERENTIAL AM CDT procedure are in the results section. BASIC METABOLIC PANEL Routine 05/19/2018 4:17 Results for this (7) AM CDT procedure are in the results section. POCT-GLUCOSE METER Routine 05/18/2018 11:53 Results for this PM CDT procedure are in the results section. TRANSFUSION SERVICE 05/18/2018 6:17 REPORT - SCAN PM CDT POCT-GLUCOSE METER Routine 05/18/2018 6:10 Results for this PM CDT procedure are in the results section. BASIC METABOLIC PANEL STAT 05/18/2018 4:46 Results for this (7) PM CDT procedure are in the results section. POCT-GLUCOSE METER Routine 05/18/2018 4:44 Results for this PM CDT procedure are in the results section. INTRAOPERATIVE PATH 05/18/2018 4:21 REPORT - SCAN PM CDT INTRAOPERATIVE PATH 05/18/2018 4:21 REPORT - SCAN PM CDT INTRAOPERATIVE PATH 05/18/2018 4:21 REPORT - SCAN PM CDT POCT-GLUCOSE METER Routine 05/18/2018 11:10 Results for this AM CDT procedure are in the results section. PHOSPHORUS Routine 05/18/2018 11:10 Results for this AM CDT procedure are in the results section. MAGNESIUM Routine 05/18/2018 11:10 Results for this AM CDT procedure are in the results section. BASIC METABOLIC PANEL Routine 05/18/2018 11:10 Results for this (7) AM CDT procedure are in the results section. POCT-GLUCOSE METER Routine 05/18/2018 5:12 Results for this AM CDT procedure are in the results section. CBC W/PLT COUNT & AUTO Routine 05/18/2018 4:11 Results for this DIFFERENTIAL AM CDT procedure are in the results section. MAGNESIUM Routine 05/18/2018 4:11 Results for this AM CDT procedure are in the results section. PHOSPHORUS Routine 05/18/2018 4:11 Results for this AM CDT procedure are in the results section. PT/APTT Routine 05/18/2018 4:11 Results for this AM CDT procedure are in the results section. CBC W/PLT COUNT & AUTO Routine 05/18/2018 4:11 Results for this DIFFERENTIAL AM CDT procedure are in the results section. BASIC METABOLIC PANEL Routine 05/18/2018 4:11 Results for this (7) AM CDT procedure are in the results section. POCT-GLUCOSE METER Routine 05/18/2018 1:59 Results for this AM CDT procedure are in the results section. XR CHEST 1 VIEW Routine 05/18/2018 1:00 Results for this PORTABLE/BEDSIDE AM CDT procedure are in the results section. XR ABDOMEN 1 VIEW Routine 05/18/2018 1:00 Results for this AM CDT procedure are in the results section. MAGNESIUM STAT 05/18/2018 12:37 Results for this AM CDT procedure are in the results section. BASIC METABOLIC PANEL STAT 05/18/2018 12:37 Results for this (7) AM CDT procedure are in the results section. HEMOGLOBIN AND STAT 05/18/2018 12:37 Results for this HEMATOCRIT AM CDT procedure are in the results section. CALCIUM, IONIZED STAT 05/17/2018 9:31 Results for this PM CDT procedure are in the results section. HGB/HCT (H&H) - STAT STAT 05/17/2018 9:29 Results for this LAB PM CDT procedure are in the results section. GLUCOSE-STAT LAB STAT 05/17/2018 9:29 Results for this PM CDT procedure are in the results section. POTASSIUM-STAT LAB STAT 05/17/2018 9:29 Results for this PM CDT procedure are in the results section. SODIUM NA-STAT LAB STAT 05/17/2018 9:29 Results for this PM CDT procedure are in the results section. BLOOD GAS, ARTERIAL STAT 05/17/2018 9:29 Results for this PM CDT procedure are in the results section. RRL CRITICAL LABS STAT 05/17/2018 9:29 Results for this (ABG,NA,K,H&H,GLUCOSE) PM CDT procedure are in the results section. HGB/HCT (H&H) - STAT Routine 05/17/2018 7:27 Results for this LAB PM CDT procedure are in the results section. GLUCOSE-STAT LAB Routine 05/17/2018 7:27 Results for this PM CDT procedure are in the results section. POTASSIUM-STAT LAB Routine 05/17/2018 7:27 Results for this PM CDT procedure are in the results section. SODIUM NA-STAT LAB Routine 05/17/2018 7:27 Results for this PM CDT procedure are in the results section. BLOOD GAS, ARTERIAL Routine 05/17/2018 7:27 Results for this PM CDT procedure are in the results section. RRL CRITICAL LABS Routine 05/17/2018 7:27 Results for this (ABG,NA,K,H&H,GLUCOSE) PM CDT procedure are in the results section. HGB/HCT (H&H) - STAT Routine 05/17/2018 5:59 Results for this LAB PM CDT procedure are in the results section. GLUCOSE-STAT LAB Routine 05/17/2018 5:59 Results for this PM CDT procedure are in the results section. POTASSIUM-STAT LAB Routine 05/17/2018 5:59 Results for this PM CDT procedure are in the results section. SODIUM NA-STAT LAB Routine 05/17/2018 5:59 Results for this PM CDT procedure are in the results section. BLOOD GAS, ARTERIAL Routine 05/17/2018 5:59 Results for this PM CDT procedure are in the results section. RRL CRITICAL LABS Routine 05/17/2018 5:59 Results for this (ABG,NA,K,H&H,GLUCOSE) PM CDT procedure are in the results section. HGB/HCT (H&H) - STAT Routine 05/17/2018 4:11 Results for this LAB PM CDT procedure are in the results section. GLUCOSE-STAT LAB Routine 05/17/2018 4:11 Results for this PM CDT procedure are in the results section. POTASSIUM-STAT LAB Routine 05/17/2018 4:11 Results for this PM CDT procedure are in the results section. SODIUM NA-STAT LAB Routine 05/17/2018 4:11 Results for this PM CDT procedure are in the results section. BLOOD GAS, ARTERIAL Routine 05/17/2018 4:11 Results for this PM CDT procedure are in the results section. RRL CRITICAL LABS Routine 05/17/2018 4:11 Results for this (ABG,NA,K,H&H,GLUCOSE) PM CDT procedure are in the results section. POTASSIUM-STAT LAB STAT 05/17/2018 3:10 Results for this PM CDT procedure are in the results section. HGB/HCT (H&H) - STAT Routine 05/17/2018 2:43 Results for this LAB PM CDT procedure are in the results section. GLUCOSE-STAT LAB Routine 05/17/2018 2:43 Results for this PM CDT procedure are in the results section. POTASSIUM-STAT LAB Routine 05/17/2018 2:43 Results for this PM CDT procedure are in the results section. SODIUM NA-STAT LAB Routine 05/17/2018 2:43 Results for this PM CDT procedure are in the results section. BLOOD GAS, ARTERIAL Routine 05/17/2018 2:43 Results for this PM CDT procedure are in the results section. RRL CRITICAL LABS Routine 05/17/2018 2:43 Results for this (ABG,NA,K,H&H,GLUCOSE) PM CDT procedure are in the results section. TISSUE EXAM AP Routine 05/17/2018 12:58 Results for this PM CDT procedure are in the results section. HGB/HCT (H&H) - STAT Routine 05/17/2018 12:07 Results for this LAB PM CDT procedure are in the results section. GLUCOSE-STAT LAB Routine 05/17/2018 12:07 Results for this PM CDT procedure are in the results section. POTASSIUM-STAT LAB Routine 05/17/2018 12:07 Results for this PM CDT procedure are in the results section. SODIUM NA-STAT LAB Routine 05/17/2018 12:07 Results for this PM CDT procedure are in the results section. BLOOD GAS, ARTERIAL Routine 05/17/2018 12:07 Results for this PM CDT procedure are in the results section. RRL CRITICAL LABS Routine 05/17/2018 12:07 Results for this (ABG,NA,K,H&H,GLUCOSE) PM CDT procedure are in the results section. HGB/HCT (H&H) - STAT Routine 05/17/2018 10:00 Results for this LAB AM CDT procedure are in the results section. GLUCOSE-STAT LAB Routine 05/17/2018 10:00 Results for this AM CDT procedure are in the results section. POTASSIUM-STAT LAB Routine 05/17/2018 10:00 Results for this AM CDT procedure are in the results section. SODIUM NA-STAT LAB Routine 05/17/2018 10:00 Results for this AM CDT procedure are in the results section. BLOOD GAS, ARTERIAL Routine 05/17/2018 10:00 Results for this AM CDT procedure are in the results section. RRL CRITICAL LABS Routine 05/17/2018 10:00 Results for this (ABG,NA,K,H&H,GLUCOSE) AM CDT procedure are in the results section. PREPARE LEUKO-REDUCED Routine 05/17/2018 8:42 Results for this RBC AM CDT procedure are in the results section. PROCEDURE W/ DAVINCI 05/17/2018 8:00 Malignant neoplasm XI AM CDT of urinary bladder, unspecified site (HCC) Case Notes 6 HRS Special Needs (REQUESTED XI) ROBOTIC LAPAROSCOPY,CYSTECTOMY 05/17/2018 8:00 AM CDT Malignant neoplasm of ILEAL LOOP urinary bladder, unspecified site (HCC) Case Notes 6 HRS Special Needs (REQUESTED XI) POCT-GLUCOSE METER Routine 05/17/2018 7:08 Results for this AM CDT procedure are in the results section. TYPE AND SCREEN, Routine 05/17/2018 7:07 Results for this AUTOMATED AM CDT procedure are in the results section. ELECTROLYTE PANEL STAT 05/17/2018 7:07 Results for this AM CDT procedure are in the results section. RHYTHM STRIP - SCAN 05/14/2018 8:51 AM CDT RHYTHM STRIP - SCAN 05/14/2018 8:51 AM CDT RHYTHM STRIP - SCAN 04/29/2018 2:31 PM CDT POCT-GLUCOSE METER Routine 04/27/2018 12:49 Results for this PM CDT procedure are in the results section. POCT-GLUCOSE METER Routine 04/27/2018 7:33 Results for this AM CDT procedure are in the results section. POCT-GLUCOSE METER Routine 04/26/2018 9:27 Results for this PM CDT procedure are in the results section. TISSUE EXAM AP Routine 04/26/2018 7:06 Results for this PM CDT procedure are in the results section. POCT-GLUCOSE METER Routine 04/26/2018 2:02 Results for this PM CDT procedure are in the results section. CYSTOSCOPY,TURBT 04/26/2018 2:00 Malignant neoplasm PM CDT of overlapping sites of bladder (HCC) Case Notes 90 MINS PER RICK Special Needs (REQ TF) CYSTOSCOPY,BLUE LIGHT CYSVIEW 04/26/2018 2:00 PM CDT Malignant neoplasm of overlapping sites of bladder (HCC) Case Notes 90 MINS PER RICK Special Needs (REQ TF) RHYTHM STRIP - SCAN 03/26/2018 1:20 PM CARPET INSPECTOR POCT-GLUCOSE METER Routine 03/09/2018 2:12 PM Results for this CARPET INSPECTOR procedure are in the results section. POCT-GLUCOSE METER Routine 03/09/2018 8:26 AM Results for this CARPET INSPECTOR procedure are in the results section. CBC W/PLT COUNT & AUTO Routine 03/09/2018 5:00 AM Results for this DIFFERENTIAL CARPET INSPECTOR procedure are in the results section. CBC W/PLT COUNT & AUTO Routine 03/09/2018 5:00 AM Results for this DIFFERENTIAL CARPET INSPECTOR procedure are in the results section. BASIC METABOLIC PANEL (7) Routine 03/09/2018 5:00 AM Results for this CARPET INSPECTOR procedure are in the results section. PHOSPHORUS Routine 03/09/2018 5:00 AM Results for this CARPET INSPECTOR procedure are in the results section. MAGNESIUM Routine 03/09/2018 5:00 AM Results for this CARPET INSPECTOR procedure are in the results section. POCT-GLUCOSE METER Routine 03/08/2018 9:52 PM Results for this CARPET INSPECTOR procedure are in the results section. POCT-GLUCOSE METER Routine 03/08/2018 6:12 PM Results for this CARPET INSPECTOR procedure are in the results section. POCT-GLUCOSE METER Routine 03/08/2018 2:13 PM Results for this CARPET INSPECTOR procedure are in the results section. POCT-GLUCOSE METER Routine 03/08/2018 12:35 PM Results for this CARPET INSPECTOR procedure are in the results section. POCT-GLUCOSE METER Routine 03/08/2018 9:15 AM Results for this CARPET INSPECTOR procedure are in the results section. CBC W/PLT COUNT & AUTO Routine 03/08/2018 4:37 AM Results for this DIFFERENTIAL CARPET INSPECTOR procedure are in the results section. CBC W/PLT COUNT & AUTO Routine 03/08/2018 4:37 AM Results for this DIFFERENTIAL CARPET INSPECTOR procedure are in the results section. BASIC METABOLIC PANEL (7) Routine 03/08/2018 4:37 AM Results for this CARPET INSPECTOR procedure are in the results section. PHOSPHORUS Routine 03/08/2018 4:37 AM Results for this CARPET INSPECTOR procedure are in the results section. MAGNESIUM Routine 03/08/2018 4:37 AM Results for this CARPET INSPECTOR procedure are in the results section. POCT-GLUCOSE METER Routine 03/07/2018 10:27 PM Results for this CARPET INSPECTOR procedure are in the results section. POCT-GLUCOSE METER Routine 03/07/2018 6:04 PM Results for this CARPET INSPECTOR procedure are in the results section. POCT-GLUCOSE METER Routine 03/07/2018 12:57 PM Results for this CARPET INSPECTOR procedure are in the results section. URINALYSIS W/ MICROSCOPIC Routine 03/07/2018 11:36 AM Results for this CARPET INSPECTOR procedure are in the results section. URINE CULTURE Routine 03/07/2018 11:35 AM Results for this CARPET INSPECTOR procedure are in the results section. POCT-GLUCOSE METER Routine 03/07/2018 7:06 AM Results for this CARPET INSPECTOR procedure are in the results section. CBC W/PLT COUNT & AUTO Routine 03/07/2018 3:59 AM Results for this DIFFERENTIAL CARPET INSPECTOR procedure are in the results section. CBC W/PLT COUNT & AUTO Routine 03/07/2018 3:59 AM Results for this DIFFERENTIAL CARPET INSPECTOR procedure are in the results section. BASIC METABOLIC PANEL (7) Routine 03/07/2018 3:59 AM Results for this CARPET INSPECTOR procedure are in the results section. PHOSPHORUS Routine 03/07/2018 3:59 AM Results for this CARPET INSPECTOR procedure are in the results section. MAGNESIUM Routine 03/07/2018 3:59 AM Results for this CARPET INSPECTOR procedure are in the results section. POCT-GLUCOSE METER Routine 03/06/2018 10:36 PM Results for this CARPET INSPECTOR procedure are in the results section. POCT-GLUCOSE METER Routine 03/06/2018 9:04 PM Results for this CARPET INSPECTOR procedure are in the results section. POCT-GLUCOSE METER Routine 03/06/2018 5:46 PM Results for this CARPET INSPECTOR procedure are in the results section. POCT-GLUCOSE METER Routine 03/06/2018 12:17 PM Results for this CARPET INSPECTOR procedure are in the results section. POCT-GLUCOSE METER Routine 03/06/2018 7:11 AM Results for this CARPET INSPECTOR procedure are in the results section. CBC (HEMOGRAM ONLY) Routine 03/06/2018 5:21 AM Results for this CARPET INSPECTOR procedure are in the results section. BASIC METABOLIC PANEL (7) Routine 03/06/2018 5:21 AM Results for this CARPET INSPECTOR procedure are in the results section. POCT-GLUCOSE METER Routine 03/06/2018 12:09 AM Results for this CARPET INSPECTOR procedure are in the results section. TRANSFUSION SERVICE REPORT - 03/05/2018 5:50 PM SCAN CARPET INSPECTOR XR CHEST 1 VIEW MARYANNE 03/05/2018 1:00 PM Results for this PORTABLE/BEDSIDE CARPET INSPECTOR procedure are in the results section. ECG 12-LEAD Routine 03/05/2018 6:32 AM Results for this CARPET INSPECTOR procedure are in the results section. CBC (HEMOGRAM ONLY) Routine 03/05/2018 6:20 AM Results for this CARPET INSPECTOR procedure are in the results section. BASIC METABOLIC PANEL (7) Routine 03/05/2018 6:20 AM Results for this CARPET INSPECTOR procedure are in the results section. PHOSPHORUS Routine 03/05/2018 6:20 AM Results for this CARPET INSPECTOR procedure are in the results section. MAGNESIUM Routine 03/05/2018 6:20 AM Results for this CARPET INSPECTOR procedure are in the results section. PREPARE RBC STAT 03/04/2018 11:54 PM Results for this CARPET INSPECTOR procedure are in the results section. POCT-GLUCOSE METER Routine 03/04/2018 11:09 PM Results for this CARPET INSPECTOR procedure are in the results section. TRANSFUSION SERVICE REPORT - 03/04/2018 5:53 PM SCAN CARPET INSPECTOR POCT-GLUCOSE METER Routine 03/04/2018 4:29 PM Results for this CARPET INSPECTOR procedure are in the results section. POCT-GLUCOSE METER Routine 03/04/2018 12:02 PM Results for this CARPET INSPECTOR procedure are in the results section. POCT-GLUCOSE METER Routine 03/04/2018 10:46 AM Results for this CARPET INSPECTOR procedure are in the results section. POCT-GLUCOSE METER Routine 03/04/2018 8:51 AM Results for this CARPET INSPECTOR procedure are in the results section. POCT-GLUCOSE METER Routine 03/04/2018 6:18 AM Results for this CARPET INSPECTOR procedure are in the results section. ECG 12-LEAD Routine 03/04/2018 5:33 AM Results for this CARPET INSPECTOR procedure are in the results section. XR CHEST 1 VIEW Routine 03/04/2018 3:19 AM Results for this PORTABLE/BEDSIDE CARPET INSPECTOR procedure are in the results section. CBC (HEMOGRAM ONLY) Routine 03/04/2018 3:02 AM Results for this CARPET INSPECTOR procedure are in the results section. PHOSPHORUS Routine 03/04/2018 3:02 AM Results for this CARPET INSPECTOR procedure are in the results section. MAGNESIUM Routine 03/04/2018 3:02 AM Results for this CARPET INSPECTOR procedure are in the results section. BASIC METABOLIC PANEL (7) Routine 03/04/2018 3:02 AM Results for this CARPET INSPECTOR procedure are in the results section. POCT-GLUCOSE METER Routine 03/04/2018 3:00 AM Results for this CARPET INSPECTOR procedure are in the results section. POCT-GLUCOSE METER Routine 03/04/2018 1:00 AM Results for this CARPET INSPECTOR procedure are in the results section. POCT-GLUCOSE METER Routine 03/03/2018 11:10 PM Results for this CARPET INSPECTOR procedure are in the results section. BLOOD GAS, ARTERIAL STAT 03/03/2018 10:55 PM Results for this CARPET INSPECTOR procedure are in the results section. ECG 12-LEAD STAT 03/03/2018 10:14 PM Results for this CARPET INSPECTOR procedure are in the results section. ECG 12-LEAD Routine 03/03/2018 10:13 PM Results for this CARPET INSPECTOR procedure are in the results section. MAGNESIUM Routine 03/03/2018 8:42 PM Results for this CARPET INSPECTOR procedure are in the results section. HGB/HCT (H&H) - STAT LAB STAT 03/03/2018 8:38 PM Results for this CARPET INSPECTOR procedure are in the results section. CALCIUM, IONIZED STAT 03/03/2018 8:38 PM Results for this CARPET INSPECTOR procedure are in the results section. BLOOD GAS, ARTERIAL STAT 03/03/2018 8:38 PM Results for this CARPET INSPECTOR procedure are in the results section. POCT-GLUCOSE METER Routine 03/03/2018 8:18 PM Results for this CARPET INSPECTOR procedure are in the results section. BASIC METABOLIC PANEL (7) STAT 03/03/2018 7:18 PM Results for this CARPET INSPECTOR procedure are in the results section. POCT-GLUCOSE METER Routine 03/03/2018 6:05 PM Results for this CARPET INSPECTOR procedure are in the results section. POCT-GLUCOSE METER Routine 03/03/2018 5:19 PM Results for this CARPET INSPECTOR procedure are in the results section. PREPARE RBC STAT 03/03/2018 5:06 PM Results for this CARPET INSPECTOR procedure are in the results section. XR CHEST 1 VIEW STAT 03/03/2018 4:38 PM Results for this PORTABLE/BEDSIDE CARPET INSPECTOR procedure are in the results section. CBC W/PLT COUNT & AUTO STAT 03/03/2018 3:48 PM Results for this DIFFERENTIAL CARPET INSPECTOR procedure are in the results section. HGB/HCT (H&H) - STAT LAB STAT 03/03/2018 3:48 PM Results for this CARPET INSPECTOR procedure are in the results section. GLUCOSE-STAT LAB STAT 03/03/2018 3:48 PM Results for this CARPET INSPECTOR procedure are in the results section. POTASSIUM-STAT LAB STAT 03/03/2018 3:48 PM Results for this CARPET INSPECTOR procedure are in the results section. SODIUM NA-STAT LAB STAT 03/03/2018 3:48 PM Results for this CARPET INSPECTOR procedure are in the results section. FIBRINOGEN STAT 03/03/2018 3:48 PM Results for this CARPET INSPECTOR procedure are in the results section. APTT STAT 03/03/2018 3:48 PM Results for this CARPET INSPECTOR procedure are in the results section. PROTHROMBIN TIME/INR STAT 03/03/2018 3:48 PM Results for this CARPET INSPECTOR procedure are in the results section. OXYGEN SATURATION, MEASURED STAT 03/03/2018 3:48 PM Results for this CARPET INSPECTOR procedure are in the results section. LACTIC ACID, ARTERIAL STAT 03/03/2018 3:48 PM Results for this CARPET INSPECTOR procedure are in the results section. CALCIUM, IONIZED STAT 03/03/2018 3:48 PM Results for this CARPET INSPECTOR procedure are in the results section. CBC W/PLT COUNT & AUTO STAT 03/03/2018 3:48 PM Results for this DIFFERENTIAL CARPET INSPECTOR procedure are in the results section. PHOSPHORUS STAT 03/03/2018 3:48 PM Results for this CARPET INSPECTOR procedure are in the results section. MAGNESIUM STAT 03/03/2018 3:48 PM Results for this CARPET INSPECTOR procedure are in the results section. BLOOD GAS, ARTERIAL STAT 03/03/2018 3:48 PM Results for this CARPET INSPECTOR procedure are in the results section. BASIC METABOLIC PANEL (7) STAT 03/03/2018 3:48 PM Results for this CARPET INSPECTOR procedure are in the results section. PLATELET COUNT STAT 03/03/2018 2:29 PM Results for this CARPET INSPECTOR procedure are in the results section. THROMBOELASTOGRAPH (TEG) STAT 03/03/2018 2:29 PM Results for this CARPET INSPECTOR procedure are in the results section. FIBRINOGEN STAT 03/03/2018 2:29 PM Results for this CARPET INSPECTOR procedure are in the results section. APTT STAT 03/03/2018 2:29 PM Results for this CARPET INSPECTOR procedure are in the results section. PROTHROMBIN TIME/INR STAT 03/03/2018 2:29 PM Results for this CARPET INSPECTOR procedure are in the results section. POCT-ACT Routine 03/03/2018 2:22 PM Results for this CARPET INSPECTOR procedure are in the results section. HGB/HCT (H&H) - STAT LAB STAT 03/03/2018 2:18 PM Results for this CARPET INSPECTOR procedure are in the results section. GLUCOSE-STAT LAB STAT 03/03/2018 2:18 PM Results for this CARPET INSPECTOR procedure are in the results section. POTASSIUM-STAT LAB STAT 03/03/2018 2:18 PM Results for this CARPET INSPECTOR procedure are in the results section. SODIUM NA-STAT LAB STAT 03/03/2018 2:18 PM Results for this CARPET INSPECTOR procedure are in the results section. BLOOD GAS, ARTERIAL STAT 03/03/2018 2:18 PM Results for this CARPET INSPECTOR procedure are in the results section. CALCIUM, IONIZED STAT 03/03/2018 2:18 PM Results for this CARPET INSPECTOR procedure are in the results section. RRL CRITICAL LABS STAT 03/03/2018 2:18 PM Results for this (ABG,NA,K,H&H,GLUCOSE) CARPET INSPECTOR procedure are in the results section. POCT-ACT Routine 03/03/2018 1:48 PM Results for this CARPET INSPECTOR procedure are in the results section. HGB/HCT (H&H) - STAT LAB Routine 03/03/2018 1:45 PM Results for this CARPET INSPECTOR procedure are in the results section. GLUCOSE-STAT LAB Routine 03/03/2018 1:45 PM Results for this CARPET INSPECTOR procedure are in the results section. POTASSIUM-STAT LAB Routine 03/03/2018 1:45 PM Results for this CARPET INSPECTOR procedure are in the results section. SODIUM NA-STAT LAB Routine 03/03/2018 1:45 PM Results for this CARPET INSPECTOR procedure are in the results section. BLOOD GAS, ARTERIAL Routine 03/03/2018 1:45 PM Results for this CARPET INSPECTOR procedure are in the results section. RRL CRITICAL LABS Routine 03/03/2018 1:45 PM Results for this (ABG,NA,K,H&H,GLUCOSE) CARPET INSPECTOR procedure are in the results section. TRANSFUSE LEUKO-REDUCED RED Routine 03/03/2018 1:40 PM BLOOD CELLS CARPET INSPECTOR POCT-ACT Routine 03/03/2018 1:33 PM Results for this CARPET INSPECTOR procedure are in the results section. HGB/HCT (H&H) - STAT LAB Routine 03/03/2018 1:29 PM Results for this CARPET INSPECTOR procedure are in the results section. GLUCOSE-STAT LAB Routine 03/03/2018 1:29 PM Results for this CARPET INSPECTOR procedure are in the results section. POTASSIUM-STAT LAB Routine 03/03/2018 1:29 PM Results for this CARPET INSPECTOR procedure are in the results section. SODIUM NA-STAT LAB Routine 03/03/2018 1:29 PM Results for this CARPET INSPECTOR procedure are in the results section. BLOOD GAS, ARTERIAL Routine 03/03/2018 1:29 PM Results for this CARPET INSPECTOR procedure are in the results section. RRL CRITICAL LABS Routine 03/03/2018 1:29 PM Results for this (ABG,NA,K,H&H,GLUCOSE) CARPET INSPECTOR procedure are in the results section. POCT-ACT Routine 03/03/2018 1:08 PM Results for this CARPET INSPECTOR procedure are in the results section. TRANSFUSE LEUKO-REDUCED RED Routine 03/03/2018 1:00 PM BLOOD CELLS CARPET INSPECTOR TRANSFUSE LEUKO-REDUCED RED Routine 03/03/2018 1:00 PM BLOOD CELLS CARPET INSPECTOR ENDOSCOPIC HARVEST,VEIN 03/03/2018 12:56 PM CVD CARPET INSPECTOR (cardiovascu lar disease) Special Needs ([facility]) BYPASS,AORTO CORONARY 03/03/2018 12:56 PM CARPET INSPECTOR CVD (cardiovascular disease) YULY/SVG Special Needs ([facility]) HGB/HCT (H&H) - STAT LAB STAT 03/03/2018 12:44 PM CARPET INSPECTOR GLUCOSE-STAT LAB STAT 03/03/2018 12:44 PM CARPET INSPECTOR POTASSIUM-STAT LAB STAT 03/03/2018 12:44 PM CARPET INSPECTOR SODIUM NA-STAT LAB STAT 03/03/2018 12:44 PM CARPET INSPECTOR BLOOD GAS, ARTERIAL STAT 03/03/2018 12:44 PM CARPET INSPECTOR CALCIUM, IONIZED STAT 03/03/2018 12:44 PM CARPET INSPECTOR RRL CRITICAL LABS STAT 03/03/2018 12:44 PM CARPET INSPECTOR Results for this (ABG,NA,K,H&H,GLUCOSE) procedure are in the results section. POTASSIUM-STAT LAB STAT 03/03/2018 10:15 AM CARPET INSPECTOR TRANSFUSION SERVICE REPORT 02/24/2018 6:02 PM CARPET INSPECTOR - SCAN XR CHEST 2 VIEWS Routine 02/23/2018 2:26 PM CARPET INSPECTOR CBC W/PLT COUNT & AUTO Routine 02/23/2018 1:31 PM CARPET INSPECTOR Results for this DIFFERENTIAL procedure are in the results section. TYPE AND SCREEN, AUTOMATED Routine 02/23/2018 1:31 PM CARPET INSPECTOR MAGNESIUM Routine 02/23/2018 1:31 PM CARPET INSPECTOR COMPREHENSIVE METABOLIC Routine 02/23/2018 1:31 PM CARPET INSPECTOR Results for this PANEL procedure are in the results section. HEMOGLOBIN A1C AP Routine 02/23/2018 1:31 PM CARPET INSPECTOR LIPID PANEL Routine 02/23/2018 1:31 PM CARPET INSPECTOR CBC W/PLT COUNT & AUTO Routine 02/23/2018 1:31 PM CARPET INSPECTOR Results for this DIFFERENTIAL procedure are in the results section. PROTHROMBIN TIME/INR Routine 02/23/2018 1:31 PM CARPET INSPECTOR APTT Routine 02/23/2018 1:31 PM CARPET INSPECTOR ECG 12-LEAD Routine 02/23/2018 1:06 PM CARPET INSPECTOR Procedure Note - Interface, External Ris In - 02/23/2018 3:43 PM CARPET INSPECTOR Ventricular Rate 56 BPM Atrial Rate 56 BPM P-R Interval 180 ms QRS Duration 96 ms Q-T Interval 392 ms QTC Calculation(Bazett) 378 ms P [place] 71 degrees R [place] 57 degrees T [place] 67 degrees Sinus bradycardia Otherwise normal ECG When compared with ECG of 11-SHANT-2018 09:42, Nonspecific T wave abnormality no longer evident in Inferior leads ECG 12-LEAD Routine 02/23/2018 1:06 PM CARPET INSPECTOR after 09/27/2017 Results [place] cystogram static (06/07/2018 2:15 PM CDT) Specimen Narrative Performed At FINAL REPORT [facility] Cystogram, 06/07/2018 HISTORY: Status post cystectomy with neobladder Modality: Fluoroscopy, fluoroscopy time: 1.7 minutes, total dose: 106.2 mGy, reference air kerma method : Contrast was slowly infused with fluoroscopic control into the indwelling Lawson catheter. There is opacification of a neobladder without evidence of extravasation. Bilateral double-J stents are present with reflux noted of both ureters into the collecting systems. There is a loop of small bowel that extends from the neobladder abdomen the right side of the pelvis over several centimeters. There is no evidence of leakage of contrast material. Drainage of the contrast was somewhat sluggish secondary to indwelling mucus. Saline was then infused into the neobladder with subsequent removal of most of the indwelling contrast. CONCLUSION: Status post neobladder with no evidence of leakage contrast.. Signed: Tata Klein MD Report Verified Date/Time:06/07/2018 15:15:13 Reading Location: [address] Radiology Reading Room Procedure Note Interface, External Ris In - 06/07/2018 3:17 PM CDT FINAL REPORT Cystogram, 06/07/2018 HISTORY: Status post cystectomy with neobladder Modality: Fluoroscopy, fluoroscopy time: 1.7 minutes, total dose: 106.2 mGy, reference air kerma method : Contrast was slowly infused with fluoroscopic control into the indwelling Lawson catheter. There is opacification of a neobladder without evidence of extravasation. Bilateral double-J stents are present with reflux noted of both ureters into the collecting systems. There is a loop of small bowel that extends from the neobladder abdomen the right side of the pelvis over several centimeters. There is no evidence of leakage of contrast material. Drainage of the contrast was somewhat sluggish secondary to indwelling mucus. Saline was then infused into the neobladder with subsequent removal of most of the indwelling contrast. CONCLUSION: Status post neobladder with no evidence of leakage contrast.. Signed: Tata Klein MD Report Verified Date/Time: 06/07/2018 15:15:13 Reading Location: [address] Radiology Reading Room Performing Organization Address City/[facility]/Zipcode Phone Number GE RIS RHYTHM STRIP - SCAN (05/25/2018 11:41 AM CDT)Only the most recent of5 resultswithin the time period is included. Narrative Performed At POC-Glucose meter (05/24/2018 12:09 PM CDT)Only the most recent of66 resultswithin the time period is included. POC-Glucose Meter 141 (H)Comment: TESTED AT 70 - 110 mg/dL [address] [address] Specimen Blood Performing Organization Address [facility] Phone Number [address] [address] [phone] CENTER PT/aPTT (05/24/2018 5:13 AM CDT)Only the most recent of7 resultswithin the time period is included. Protime 13.8 11.7 - 14.7 seconds [facility] INR 1.0 <=5.9 [facility] PTT 40.2 (H) 22.5 - 36.0 seconds [facility] Specimen Blood Narrative Performed At RECOMMENDED COUMADIN/WARFARIN INR THERAPY [facility] RANGES STANDARD DOSE: 2.0 - 3.0 Includes: PROPHYLAXIS for venous thrombosis, systemic embolization; TREATMENT for venous thrombosis and/or pulmonary embolus. HIGH RISK: Target INR is 2.5-3.5 for patients with mechanical heart valves. Performing Organization Address [facility] Phone Number [address] [address] CENTER Phosphorus (05/24/2018 5:13 AM CDT)Only the most recent of14 resultswithin the time period is included. Phosphorus 3.4 2.3 - 4.7 mg/dL [facility] Specimen Blood Performing Organization Address City/State/Zipcode Phone Number [address] [address] [phone] [place] Magnesium (05/24/2018 5:13 AM CDT)Only the most recent of17 resultswithin the time period is included. Magnesium 1.5 (L) 1.6 - 2.6 mg/dL [facility] Specimen Blood Performing Organization Address [facility] Phone Number [address] [address] [place] Basic Metabolic Panel (05/24/2018 5:13 AM CDT)Only the most recent of18 resultswithin the time period is included. Sodium 137 136 - 145 meq/L [facility] Potassium 4.5 3.5 - 5.1 meq/L [facility] Chloride 105 98 - 107 meq/L [facility] CO2 24 22 - 29 meq/L [facility] BUN 29 (H) 7 - 21 mg/dL [facility] Creatinine 1.60 (H) 0.57 - 1.25 mg/dL [facility] Glucose 91 70 - 105 mg/dL [facility] Calcium 9.3 8.4 - 10.2 mg/dL [facility] EGFR 44Comment: ESTIMATED GFR IS mL/min/1.73 sq m [facility] NOT ACCURATE CREATININE [facility] CENTER CLEARANCE IN PREDICTING GLOMERULAR FILTRATION RATE. ESTIMATED GFR IS NOT APPLICABLE FOR DIALYSIS PATIENTS. Specimen Blood Performing Organization Address City/[facility]/Zipcode Phone Number [address] [address] CENTER Urine culture (05/23/2018 9:52 AM CDT)Only the most recent of2 resultswithin the time period is included. Result 10-19,000 col/mL Coagulase negative [facility] Staphylococcus (A) [facility] [place] Specimen Urine Organism Antibiotic Method Susceptibility Coagulase negative Staphylococcus Clindamycin >=4: Resistant Coagulase negative Staphylococcus Erythromycin >=8: Resistant Coagulase negative Staphylococcus Linezolid 2: Susceptible Comment: This is an appended report. These results have been appended to a previously final verified report. Coagulase negative Staphylococcus Nitrofurantoin <=16: Susceptible Coagulase negative Staphylococcus Oxacillin >=4: Resistant Comment: This is a corrected result. Previous result was (>=4) on 05/26/2018 at 1117 CDT Coagulase negative Staphylococcus Rifampin <=0.5: Susceptible Coagulase negative Staphylococcus Tetracycline 2: Susceptible Coagulase negative Staphylococcus Vancomycin 1: Dose Dependent Susceptible Performing Organization Address City/State/Zipcode Phone Number [address] [address] [phone] [place] CBC with platelet count + automated diff (05/23/2018 6:35 AM CDT)Only the most recent of12 resultswithin the time period is included. WBC 8.5 3.5 - 10.5 K/L [facility] RBC 2.54 (L) 4.63 - 6.08 M/L [facility] Hemoglobin 7.6 (L) 13.7 - 17.5 GM/DL [facility] Hematocrit 23.3 (L) 40.1 - 51.0 % [facility] MCV 91.7 79.0 - 92.2 fL [facility] MCH 29.9 25.7 - 32.2 pg [facility] MCHC 32.6 32.3 - 36.5 GM/DL [facility] RDW 13.2 11.6 - 14.4 % [facility] Platelets 268 150 - 450 K/CU MM [facility] MPV 10.0 9.4 - 12.4 fL [facility] nRBC 0 0 - 0 /100 WBC [facility] % Neutros 63 % [facility] % Lymphs 18 % [facility] % Monos 11 % [facility] % Eos 7 % [facility] % Baso 1 % [facility] # Neutros 5.38 1.78 - 5.38 K/L [facility] # Lymphs 1.49 1.32 - 3.57 K/L [facility] # Monos 0.91 (H) 0.30 - 0.82 K/L [facility] # Eos 0.56 (H) 0.04 - 0.54 K/L [facility] # Baso 0.04 0.01 - 0.08 K/L [facility] Immature Granulocytes-Relative 1 0 - 1 % [facility] Specimen Blood Performing Organization Address City/State/Zipcode Phone Number [phone] [place] [address] CENTER XR chest 1 view portable / bedside (05/21/2018 1:24 PM CDT)Only the most recent of5 resultswithin the time period is included. Specimen Narrative Performed At FINAL REPORT [employer] TECHNIQUE: Frontal chest radiograph dated 05/21/2018 CLINICAL HISTORY: Post PICC insertion COMPARISON STUDY: Chest radiograph dated 05/18/2018 IMPRESSION: Right-sided PICC is seen with the tip projected over the superior vena cava the level of the howie. A left-sided MediPort is unchanged in position. Atelectasis is seen in the left lung base. No pleural effusion or pneumothorax. Cardiomediastinal silhouette is normal in size. No pulmonary edema. Degenerative changes are seen in the spine. Midline sternotomy wires are intact and well aligned. Signed: Alex Nickerson MD Report Verified Date/Time:05/21/2018 14:19:05 Reading Location: [facility] Radiology Reading Room Procedure Note Interface, External Ris In - 05/21/2018 2:21 PM CDT FINAL REPORT TECHNIQUE: Frontal chest radiograph dated 05/21/2018 CLINICAL HISTORY: Post PICC insertion COMPARISON STUDY: Chest radiograph dated 05/18/2018 IMPRESSION: Right-sided PICC is seen with the tip projected over the superior vena cava the level of the howie. A left-sided MediPort is unchanged in position. Atelectasis is seen in the left lung base. No pleural effusion or pneumothorax. Cardiomediastinal silhouette is normal in size. No pulmonary edema. Degenerative changes are seen in the spine. Midline sternotomy wires are intact and well aligned. Signed: Alex Nickerson MD Report Verified Date/Time: 05/21/2018 14:19:05 Reading Location: [facility] Radiology Reading Room Performing Organization Address City/State/Zipcode Phone Number GE RIS Manual Differential (05/21/2018 8:16 AM CDT) % Neutros 84 % [facility] % Lymphs 6 % [facility] % Monos 4 % [facility] % Eos 3 % [facility] % Bands 3 0 - 10 % [facility] # Neutros 13.27 (H) 1.78 - 5.38 K/ul [facility] # Lymphs 0.95 (L) 1.32 - 3.57 K/ul [facility] # Monos 0.63 0.30 - 0.82 K/uL [facility] # Eos 0.47 0.04 - 0.54 K/uL [facility] # Bands 0.47 0.00 - 0.80 K/uL [facility] Total Counted 100 [facility] WBC Morphology Normal [facility] Giant Platelet Present [facility] Polychromasia 1+ few [facility] Anisocytosis 2+ moderate [facility] Microcytes 2+ moderate [facility] Artifact Present [facility] Platelet Conc Adequate [facility] Specimen Blood Narrative Performed At Received comment: [facility] User comments: Slide comments: Performing Organization Address City/[facility] Phone Number [address] [address] [place] Creatinine, body fluid (05/21/2018 7:53 AM CDT) Creat, Fluid 2.20 mg/dL [facility] Specimen Body Fluid Narrative Performed At Reference Range:No Normals [facility] Assay performance has not been validated for this type of specimen. Performing Organization Address City/[facility] Phone Number [address] [address] [place] INTRAOPERATIVE PATH REPORT - SCAN (05/20/2018 12:32 PM CDT)Only the most recent of5 resultswithin the time period is included. Narrative Performed At Hemoglobin A1c (05/19/2018 4:17 AM CDT)Only the most recent of2 resultswithin the time period is included. Hemoglobin A1C 6.7 (H) 4.3 - 6.1 % [facility] Specimen Blood Performing Organization Address City/[facility] Phone Number [address] [address] [place] TRANSFUSION SERVICE REPORT - SCAN (05/18/2018 6:17 PM CDT)Only the most recent of4 resultswithin the time period is included. Narrative Performed At XR abdomen / KUB 1 view (05/18/2018 1:00 AM CDT) Specimen Narrative Performed At FINAL REPORT [facility] EXAMINATION: SUPINE ABDOMEN CLINICAL INDICATION: Ureteral stents. IMPRESSION: Patient is status post recent abdominal surgery with a vertically oriented midline incision. Multiple surgical clips are also noted within the pelvis, nonspecific but possibly reflecting lymph node dissection. Bilateral ureteral stents as well as a suspected Lawson catheter have been placed. A large bore catheter has also been placed via left sided approach with the tip projecting over the midline at the level of the L5 vertebral body. Visualized bowel gas pattern is nonspecific. Evaluation for free air below the diaphragm and air-fluid levels is limited by supine patient positioning. Note: The distal segment of the left ureteral stent has a somewhat unusual midline orientation. The finding is nonspecific and may reflect postoperative change. Local mass effect within the pelvis including occult hematoma cannot be excluded. CT could be performed for further evaluation if warranted. Signed: Dakota Garrison MD Report Verified Date/Time:05/18/2018 04:06:16 Reading Location: [address] [place] Reading Room Procedure Note Interface, External Ris In - 05/18/2018 4:08 AM CDT FINAL REPORT EXAMINATION: SUPINE ABDOMEN CLINICAL INDICATION: Ureteral stents. IMPRESSION: Patient is status post recent abdominal surgery with a vertically oriented midline incision. Multiple surgical clips are also noted within the pelvis, nonspecific but possibly reflecting lymph node dissection. Bilateral ureteral stents as well as a suspected Lawson catheter have been placed. A large bore catheter has also been placed via left sided approach with the tip projecting over the midline at the level of the L5 vertebral body. Visualized bowel gas pattern is nonspecific. Evaluation for free air below the diaphragm and air-fluid levels is limited by supine patient positioning. Note: The distal segment of the left ureteral stent has a somewhat unusual midline orientation. The finding is nonspecific and may reflect postoperative change. Local mass effect within the pelvis including occult hematoma cannot be excluded. CT could be performed for further evaluation if warranted. Signed: Dakota Garrison MD Report Verified Date/Time: 05/18/2018 04:06:16 Reading Location: [address] [facility] Reading Room Performing Organization Address [facility] Phone Number GE [facility] Hemoglobin and hematocrit (05/18/2018 12:37 AM CDT) Hemoglobin 9.3 (L) 13.7 - 17.5 GM/DL [facility] Hematocrit 30.0 (L) 40.1 - 51.0 % [facility] Specimen Blood Performing Organization Address [facility] Phone Number [address] [address] [phone] CENTER Calcium, Ionized (05/17/2018 9:31 PM CDT)Only the most recent of5 resultswithin the time period is included. Calcium, Ion 1.01 (L) 1.12 - 1.27 mmol/L [facility] pH, Blood 7.33 [facility] Specimen Blood Performing Organization Address [facility] Phone Number [address] [address] CENTER Potassium-Stat Lab (05/17/2018 9:29 PM CDT)Only the most recent of14 resultswithin the time period is included. Potassium 5.4 3.6 - 5.5 meq/L [facility] Specimen Blood, Arterial Performing Organization Address [facility] Phone Number [address] [address] [phone] CENTER Sodium Na-Stat Lab (05/17/2018 9:29 PM CDT)Only the most recent of12 resultswithin the time period is included. Sodium 135 135 - 148 meq/L [facility] Specimen Blood, Arterial Performing Organization Address [facility] Phone Number [address] [address] CENTER Glucose-Stat Lab (05/17/2018 9:29 PM CDT)Only the most recent of12 resultswithin the time period is included. Glucose 214 (H) 70 - 110 mg/dL [facility] Specimen Blood, Arterial Performing Organization Address City/[facility] Phone Number [address] [address] [place] HGB/HCT (H&H)-Stat Lab (05/17/2018 9:29 PM CDT)Only the most recent of13 resultswithin the time period is included. Hemoglobin 8.9 (L) 13.0 - 16.8 g/dL [facility] Hematocrit 26.0 (L) 40.0 - 50.0 % [facility] Specimen Blood, Arterial Performing Organization Address [facility] Phone Number [address] [address] [place] Blood gas, arterial (05/17/2018 9:29 PM CDT)Only the most recent of14 resultswithin the time period is included. pH, Arterial 7.33 (L) 7.35 - 7.45 [facility] pCO2, Arterial 40 35 - 45 mmHg [facility] pO2, Arterial 210 (H) 80 - 90 mmHg [facility] O2 Sat, Arterial 99.3 (H) 96.0 - 97.0 % [facility] HCO3, Arterial 21 21 - 29 mmol/L [facility] Base Excess, Arterial -4.9 (L) -2.0 - 3.0 mmol/L [facility] Patient Temperature 37.0 C [facility] FIO2 50.0 % [facility] Specimen Blood, Arterial Performing Organization Address City/[facility] Phone Number [address] [address] CENTER Tissue Exam (05/17/2018 12:58 PM CDT)Only the most recent of2 resultswithin the time period is included. Case Report Surgical Pathology Report Case: [id number] [facility] Authorizing Provider:Tyshawn Jorge MD Collected: 05/17/2018 1258 [facility] Ordering Location: [facility] PERIOPERATIVE Received: 05/17/2018 1319 SERVICES Pathologist: Nj Charles MD Specimens: A) - Ureter, Left, left distal ureteral margin B) - Ureter, Right, right distal ureteral margin C) - Ureter, Left, left ureteral margin. ink hardwick true margin D) - Lymph Node, alex prostatic lymph node(s) E) - Lymph Node, right external iliac lymph node(s) F) - Lymph Node, right obturator lymph node(s) G) - Lymph Node, right common iliac lymph node(s) H) - Lymph Node, right interal iliac lymph node(s) I) - Lymph Node, left external iliac lymph node(s) J) - Lymph Node, left obturator lymph node(s) K) - Lymph Node, left common iliac lymph node(s) L) - Lymph Node, left hypogastric lymph node(s) M) - Lymph Node, PRESACRAL LYMPH NODE N) - Lymph Node, left internall iliac lymph node(s) O) - Lymph Node, LEFT COMMON ILIAC SUSPICIOUS LYMPH NODE P) - Ureter, Left, Third resection Left Distal Ureteral Margin, ink hardwick the true margin Q) - Urethral, Urethral margin R) - Prostate, Prostate and bladder S) - Small Bowel, NOS, Discarded segment of small bowel T) - Ureter, Left, Left final ureteral margin - ink hardwick the true margin DIAGNOSIS A. URETER, LEFT DISTAL MARGIN, EXCISION: [facility] - UROTHELIAL CARCINOMA IN-SITU [facility] B. URETER, RIGHT DISTAL MARGIN, EXCISION: - NO PATHOLOGIC DIAGNOSIS C. URETER, LEFT URETERAL MARGIN, EXCISION: - UROTHELIAL CARCINOMA IN-SITU D. SOFT TISSUE, LABELED "LYMPH NODE, ALEX-PROSTATIC", EXCISION: - BENIGN FIBROADIPOSE TISSUE - NO LYMPH NODE IDENTIFIED E. LYMPH NODE, RIGHT EXTERNAL ILIAC, DISSECTION: - NINE BENIGN LYMPH NODES (0/9) F. LYMPH NODE, RIGHT OBTURATOR, DISSECTION: - SIX BENIGN LYMPH NODES (0/6) G. LYMPH NODE, RIGHT COMMON ILIAC, DISSECTION: - FIVE BENIGN LYMPH NODES (0/5) H. LYMPH NODE, RIGHT INTERNAL ILIAC, DISSECTION: - FOUR BENIGN LYMPH NODES (0/4) I. LYMPH NODE, LEFT EXTERNAL ILIAC, DISSECTION: - TWO BENIGN LYMPH NODES (0/2) J. LYMPH NODE, LEFT OBTURATOR, DISSECTION: -THREE BENIGN LYMPH NODES (0/3) K. LYMPH NODE, LEFT COMMON ILIAC, DISSECTION: - THREE OUT OF FOUR LYMPH NODES POSITIVE FOR METASTATIC CARCINOMA (3/4) L. SOFT TISSUE, LABELED "LYMPH NODE, LEFT HYPOGASTRIC", EXCISION: - BENIGN FIBROADIPOSE TISSUE - NO LYMPH NODE IDENTIFIED M. SOFT TISSUE, LABELED "LYMPH NODE, PRE-SACRAL", EXCISION: - BENIGN FIBROADIPOSE TISSUE - NO LYMPH NODE IDENTIFIED N. SOFT TISSUE, LABELED "LYMPH NODE, LEFT INTERNAL ILIAC", EXCISION: - BENIGN FIBROADIPOSE TISSUE - NO LYMPH NODE IDENTIFIED O. LYMPH NODE, SUBMITTED "LEFT COMMON ILIAC SUSPICIOUS", EXCISION: - ONE FRAGMENTED LYMPH NODE POSITIVE FOR METASTATIC CARCINOMA (02/09) P. URETER, SUBMITTED "LEFT DISTAL URETERAL MARGIN THIRD RESECTION", EXCISION: - NO PATHOLOGIC DIAGNOSIS AT SURGICAL MARGIN - DEEPER LEVELS ON PERMANENT SECTIONS SHOW UROTHELIAL CARCINOMA IN SITU Q. URETHRA, MARGIN, EXCISION: - NO PATHOLOGIC DIAGNOSIS R. 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 SMALL BOWEL, SUBMITTED "DISCARDED SEGMENT", EXCISION: - SMALL BOWEL WITH NO SIGNIFICANT PATHOLOGIC ALTERATION - NEGATIVE FOR CARCINOMA T. URETER, SUBMITTED LEFT FINAL URETERAL MARGIN", EXCISION: - NO PATHOLOGIC DIAGNOSIS Signing Pathologist Direct Phone Line: [phone] COMMENT The positive lymph nodes show urothelial carcinoma with clear cell change in most of the tumor cells. Approximately 1-2% of the metastatic tumor shows squamous differentiation with keratinization. [facility] There is large volume prostatic adenocarcinoma in the right transition zone with small foci in the left transition zone and peripheral zones. All tumors are confined to the prostate. SYNOPTIC REPORT URINARY BLADDER: Cystectomy, Anterior Exenteration( Bladder Res - All Specimens) [facility] SPECIMEN Procedure:Radical cystectomy TUMOR Tumor Site:Posterior wall Histologic Type:Urothelial carcinoma invasive Histologic Grade:High-grade Tumor Size:Greatest dimension in Centimeters (cm): 1.5 Centimeters (cm) Tumor Extent: Tumor Extension:Tumor invades muscularis propria :Tumor invades superficial muscularis propria (inner half) Accessory Findings: Lymphovascular Invasion:Present MARGINS Margins:Uninvolved by invasive carcinoma and carcinoma in situ / noninvasive urothelial carcinoma LYMPH NODES Number of Lymph Nodes Involved:4 Number of Lymph Nodes Examined:34 PATHOLOGIC STAGE CLASSIFICATION (pTNM, AJCC 8th Edition) TNM Descriptors:Not applicable Primary Tumor (pT):pT2a Regional Lymph Nodes (pN):pN3 ADDITIONAL FINDINGS Additional Pathologic Findings:Urothelial carcinoma in situ Additional Pathologic Findings:Urothelial carcinoma in situ in superficial prostatic ducts. PROSTATE GLAND: Radical Prostatectomy(Prostate Res - All Specimens) SPECIMEN Procedure:Cystoprostatectomy Prostate Size: Prostate Greatest Dimension in Centimeters (cm):4.5 Centimeters (cm) Additional Dimension in Centimeters (cm):3.2 Centimeters (cm ) Additional Dimension in Centimeters (cm):2.4 Centimeters (cm ) TUMOR Histologic Type:Acinar adenocarcinoma Histologic Grade: [place] Pattern: Percentage of Pattern 4:20 % Percentage of Pattern 5:0 % Primary [place] Pattern:Pattern 3 Secondary Keshav Pattern:Pattern 4 Tertiary Keshav Pattern:Not applicable Total Keshav Score:7 Grade Group:2 Intraductal Carcinoma (IDC):Not identified Tumor Extent: Tumor Quantitation:Estimated percentage of prostate involved by tumor: 15 % Extraprostatic Extension (EPE):Not identified Urinary Bladder Neck Invasion:Not identified Seminal Vesicle Invasion:Not identified Accessory Findings: Treatment Effect:No known presurgical therapy Lymphovascular Invasion:Not Identified Perineural Invasion:Not identified MARGINS Margins:Uninvolved by invasive carcinoma :Benign prostate glands present at surgical margin LYMPH NODES Number of Lymph Nodes Involved:0 Number of Lymph Nodes Examined:34 PATHOLOGIC STAGE CLASSIFICATION (pTNM, AJCC 8th Edition) TNM Descriptors:Not applicable Primary Tumor (pT):pT2 Regional Lymph Nodes (pN):pN0 Distant Metastasis (pM):Not applicable - pM cannot be determined from the submitted specimen(s) ADDITIONAL FINDINGS Additional Pathologic Findings:High-grade prostatic intraepithelial neoplasia (PIN) Additional Pathologic Findings:Inflammation: chronic Additional Pathologic Findings:Nodular prostatic hyperplasia Comment(s) Comment(s):focal urothelial carcinoma in situ in superificial prostatic ducts. CPT Code(s) A. 73786, 07228 [facility] B. 29910, 87437 [facility] C. 28748, 06496 D. 48413 E. 67147 F. 68216 G. 16496 H.75578 I. 12415 J. 87193 K. 96626 L. 50542 M. 12440 N. 18179 O. 64134 P. 42128, 04223 Q. 91302, 95114 R. 22085 S. 17989, 31217 T. 43123, [address]3818 SPECIMEN SOURCE A. Left distal ureteral [facility] margin. B. Right distal [facility] ureteral margin. C. Left ureteral margin, ink hardwick true margin; D. Periprostatic lymph node; E. Right external iliac lymph node; F. Right obturator lymph node; G. Right common iliac lymph node; H. Right internal iliac lymph node; I. Left external iliac lymph node; J. Left obturator lymph node; K. Left common iliac lymph node; L. Left hypogastric lymph node; M. Presacral lymph node'; N. Left internal iliac lymph node; O. Left common iliac suspicious lymph node; P. left ureter; Q. Urethral; R. Prostate and bladder; S. Small bowel, discarded segment; T. Left final ureteral margin GROSS DESCRIPTION Part A. Received fresh, labeled with the patient's information and "left ureter" is a 0.7 cm in diameter x 0.3 cm long piece of tissue, with a lumen that measures 0.1 cm. The specimen is sent entirely for frozen section in cassette FSA1. /enmanuel [facility] Part B. Received fresh for intraoperative consultation labeled with the patient's information and "right ureter" is a 0.3 cm long x 0.6 cm in diameter piece of tissue that has a 0.1 cm lumen. The specim en is submitted entirely for frozen section in cassette FSB1. Part C. Received fresh for intraoperative consultation labeled with the patient's information and "left ureter" is a 0.9 x 0.9 x 0.3 cm piece of tissue contains a 0.3 cm long x 0.7 cm in diameter ureter with a 0.1 cm lumen. The ureter is re-inked blue at the true margin and submitted in cassette FSC, and the rest of the fat is submitted in cassette C2 for permanent. /enmanuel Part D: The specimen is labeled "periprostatic lymph node" and consists of adipose tissue measuring 3 x 2 x 1 cm in aggregate yielding no palpable lymph node tissue. The fat is entirely submitted D1 and D2. Part E: The specimen is labeled "right external iliac lymph node" and consists of multiple fragments of adipose tissue measuring 5.5 x 4 x 1.5 cm in aggregate yielding nine zhong fatty lymph nodes measuring up to 1.6 cm. The specimen is entirely submitted as follows: E1, five lymph nodes; E2 to E5 , one lymph node bisected in each cassette; E6 through E10, remainder of adipose tissue. Part F: The specimen is labeled "right obturator lymph node" consists of adipose tissue measuring 5 x 2.5 x 1.5 cm yielding five zhong fatty lymph nodes measuring up to 4 cm. The specimen is entirely subm itted as follows: F1, two lymph nodes; F2, one lymph node bisected; F3, one lymph node bisected; F4 and 5, largest lymph node bisected; F6, remainder of adipose tissue; Part G: The specimen is labeled "right common iliac lymph node" and consists of adipose tissue measuring 3 x 2 x 1 cm in aggregate consisting of a single zhong fatty lymph node measuring 2.5 x 1 x 0.4 cm. The lymph node is entirely submitted G1 and G2. G3 and 4, remainder of fat. Part H: The specimen is labeled "right internal iliac iliac lymph node" and consists of adipose tissue measuring 4 x 2.5 x 1 cm in aggregate yielding two zhong lymph nodes measuring up to 1 cm. The specim en is entirely submitted as follows: H1, two lymph nodes; H2 to 4, remainder of fat. Part I: The specimen is labeled "left external iliac lymph node" and consists of multiple fragments of adipose tissue measuring 4.2 x 3 x 1.5 cm in aggregate yielding two zhong fatty lymph nodes measuring up to 1.9 cm. Section code: I1, one lymph node bisected; I2 and 3, largest lymph node bisected; I4 through I6, remainder of fat. Part J: The specimen is labeled "left obturator lymph node" consists of adipose tissue measuring 3.5 x 3 x 1 cm in aggregate, consisting of three zhong fatty lymph nodes measuring up to 3 cm in greatest d imension. The specimen is entirely submitted as follows: J1, one lymph node; J2 and J3, one lymph node serially sectioned; J4 and J5, one lymph node sectioned; J6, remainder of fat. Part K: The specimen is labeled "left common iliac lymph node" consists of several fragments of adipose tissue measuring 4 x 3 x 1.5 cm yielding five zhong- white lymph nodes measuring up to 2.6 cm. The sp ecimen is entirely submitted as follows: K1, two lymph nodes; K2, one lymph node bisected; K3 and 4, one lymph node bisected; K5 and 6, one lymph node bisected; K7, remainder of fat. Part L: The specimen is labeled "left hypogastric lymph node" and consists of fat measuring 2 x 1.5 x 1 cm with no palpable lymph node. The fat is entirely submitted L1. Part M: The specimen is labeled "presacral lymph node" and consists of adipose tissue measuring 2.5 x 2 x 0.5 cm yielding no grossly identifiable lymph node tissue. The specimen is entirely submitted M1 and M2. Part N: The specimen is labeled "left internal iliac lymph node" and consists of adipose tissue measuring 3 x 1.5 x 1 cm yielding one lymph node measuring 0.8 cm in greatest dimension. The specimen is e ntirely submitted as follows: N1, one lymph node; N2, adipose tissue. Part O: The specimen is labeled "left common iliac suspicious lymph node" and consists of a fragmented lymph node measuring 1.5 x 1 x 0.4 cm in aggregate. Fragmented pieces are entirely submitted O1. CG/pl Part P: Received fresh for intraoperative consultation labeled with the patient's information and "third resection left distal ureteral margin (ink hardwick the true margin)" is a ureteral resection that m easures 2.3 cm long x 0.7 cm in diameter with a 0.1 cm lumen. The true margin is re-inked and submitted for frozen section in cassette FSP1 and the rest of the specimen is submitted for permanent in cassettes P2-P3. Part Q: Received fresh for intraoperative consultation labeled with the patient's information and "urethral margin" is a 0.4 cm long x 1.1 cm in diameter piece of urethra. The specimen is submitted entirely for frozen in cassette FSQ1. /willi Part R received fresh, labeled with the patient's information and "bladder and prostate" is a radical cystoprostatectomy specimen that measures 15 x 13.5 x 5.1 cm overall, including an intact bladder (9 x 7.8 x 4.5 cm) with attached bilateral ureteral stumps (right 0.6 cm long x 0.5 cm in diameter and left 1.6 cm long x 0.7 cm in diameter) and an attached prostate (4.5 x 3.2 x 2.4 cm), the right semin al vesicle is 2.8 x 1.5 x 1 cm, left seminal vesicle is 3.3 x 1.6 x 1.1 cm, right vas deferens is 5.6 cm long x 0.7 cm in diameter, left vas deferens is 5.4 cm long x 0.7 cm in diameter). The specimen i s inked and opened to reveal an ulcerated tumor in the posterior wall of the bladder that measures 4.8 x 4.1 cm. The specimen is serially sectioned, and the tumor is 1.1 cm thick and appears to infiltra te the muscularis propria but does not extend into the serosa. The tumor is located 3.1 cm from the right ureter, 1.8 cm from the left ureter and 6.3 cm from the urethra. The remainder of the mucosa is edematous, and no other lesions are identified. The ureteral orifices are patent and uninvolved by tumor. The prostate is serially sectioned and has a zhong -white cut surface with no nodules identified. T he seminal vesicles and vas deferens are uninvolved. The fat is serially sectioned, but no lymph nodes are identified. Commissary Worker sections are submitted as follows: Ink code: Black right, blue left. Section code: [id number], tumor entirely sectioned in posterior wall, full-thickness sections R16, tumor to left ureter R17, right ureter to trigone R18, anterior wall R19, dome R20, right lateral wall R21, left lateral wall R22, trigone R23, uninvolved posterior wall R24-31, prostate submitted entirely DR/enmanuel Part S labeled "small bowel discarded segment" consists of a small segment of bowel measuring 1.6 cm in length x 2.4 cm in diameter. The specimen is unremarkable. Section code: S1, resection margin en face; S2, random section of small bowel. Part T labeled "left final ureteral margin" consists of a segment of tubular shaped segment of zhong-pink soft tissue measuring 1.2 cm in length x 0.5 cm in diameter with a 0.3 cm lumen. The new margin is inked blue and submitted entirely T1. CG/pl INTRAOPERATIVE FSA1: [facility] CONSULTATION URETER, LEFT DISTAL MARGIN, EXCISION: [facility] - POSITIVE FOR UROTHELIAL CARCINOMA, NONINVASIVE - IN SITU This was verbally reported by Dr. Guajardo to Dr. Jorge on May 17, 2018 at 1:35 p.m. FSB: URETER, RIGHT DISTAL MARGIN, EXCISION: - NEGATIVE This was verbally reported by Dr. Guajardo to Dr. Jorge on May 17, 2018 at 2:04 p.m. FSC: URETER, LEFT MARGIN, EXCISION: - POSITIVE FOR UROTHELIAL CARCINOMA, NONINVASIVE This was verbally reported by Dr. Guajardo to Dr. Jorge on May 17, 2018 at 2:04 p.m. P. FSP, URETER, THIRD RESECTION LEFT DISTAL, EXCISION: - NEGATIVE This was verbally reported by Dr. Guajardo to Dr. Jorge on May 17, 2018 at 7:25 p.m. Q. FSQ, URETHRAL MARGIN, EXCISION: - NEGATIVE This was verbally reported by Dr. Guajardo to Dr. Jorge on May 17, 2018 at 7:20 p.m. MICROSCOPIC DESCRIPTION A-T: Performed [facility] Specimen Tissue Tissue - Structure of right ureter (body structure) Tissue - Structure of left ureter (body structure) Tissue - Structure of lymph node (body structure) Tissue - Structure of lymph node (body structure) Tissue - Structure of lymph node (body structure) Tissue - Structure of lymph node (body structure) Tissue - Structure of lymph node (body structure) Tissue - Structure of lymph node (body structure) Tissue - Structure of lymph node (body structure) Tissue - Structure of lymph node (body structure) Tissue - Structure of lymph node (body structure) Tissue - Structure of lymph node (body structure) Tissue - Structure of lymph node (body structure) Tissue - Structure of lymph node (body structure) Tissue - Structure of left ureter (body structure) Tissue - Urethral Tissue - Prostatic structure (body structure) Tissue - Small intestinal structure (body structure) Tissue - Structure of left ureter (body structure) Performing Organization Address [facility] Phone Number [address] [address] CENTER Prepare Leuko-Red RBC (05/17/2018 8:42 AM CDT) CROSSMATCH COMPATIBLE SAFETRACE TX Unit ABO O Pos SAFETRACE TX UNIT NUMBER [id number] SAFETRACE TX Status READY SAFETRACE TX Blood Bank Product RED BLOOD CELLS SAFETRACE TX PRODUCT CODE [id number] SAFETRACE TX CROSSMATCH COMPATIBLE SAFETRACE TX Unit ABO O Pos SAFETRACE TX UNIT NUMBER [id number] SAFETRACE TX Status READY SAFETRACE TX Blood Bank Product RED BLOOD CELLS SAFETRACE TX PRODUCT CODE [id number] SAFETRACE [place] Specimen Other Performing Organization Address [facility] Phone Number SAFETRACE [place] Type and screen, automated (05/17/2018 7:07 AM CDT)Only the most recent of2 resultswithin the time period is included. ABO/RH AUTOMATED (BEAKER) O POSITIVE [facility] Ab Scrn NEGATIVE [facility] Specimen Blood Performing Organization Address [facility] Phone Number [address] [phone] Electrolytes (05/17/2018 7:07 AM CDT) Sodium 138 136 - 145 meq/L [facility] Potassium 4.2 3.5 - 5.1 meq/L [facility] Chloride 104 98 - 107 meq/L [facility] CO2 25 22 - 29 meq/L [facility] Specimen Blood Performing Organization Address [facility] Phone Number [address] [phone] CENTER Urinalysis w/Microscopic (03/07/2018 11:36 AM CARPET INSPECTOR) Color, UA Dark Crisp [facility] Clarity, UA Clear [facility] Specific [place], UA 1.007 1.001 - 1.035 [facility] pH, UA 5.5 5.0 - 8.0 [facility] Protein, UA 10 mg/dL (A) Negative [facility] Glucose, UA 500 mg/dL (A) Negative [facility] Ketones, UA Negative Negative [facility] Bilirubin, UA Negative Negative [facility] Blood, UA Trace (A) Negative [facility] Nitrite, UA Negative Negative [facility] Leukocytes, UA Negative Negative [facility] Urobilinogen, UA 0.2 0.2 - 1.0 mg/dL [facility] RBC, UA 3 /HPF [facility] WBC, UA 3 /HPF [facility] Mucus Rare [facility] Hyaline Casts, UA 5 /LPF [facility] Specimen Source Urine, Lawson [facility] Specimen Urine Performing Organization Address City/State/Zipcode Phone Number [facility] [address] [place] [address] [phone] CENTER CBC (Hemogram only) (03/06/2018 5:21 AM CARPET INSPECTOR)Only the most recent of3 resultswithin the time period is included. WBC 11.0 (H) 3.5 - 10.5 K/L [facility] RBC 2.95 (L) 4.63 - 6.08 M/L [facility] Hemoglobin 9.4 (L) 13.7 - 17.5 GM/DL [facility] Hematocrit 29.0 (L) 40.1 - 51.0 % [facility] MCV 98.3 (H)Comment: DISCORDANT 79.0 - 92.2 fL [facility] MCV RESULT COMPARED TO MEDICAL CENTER PREVIOUS RESULT; CLINICAL CORRELATION REQUIRED. MCH 31.9 25.7 - 32.2 pg [facility] MCHC 32.4 32.3 - 36.5 GM/DL [facility] RDW 16.1 (H) 11.6 - 14.4 % [facility] Platelets 95 (L) 150 - 450 K/CU MM [facility] MPV 10.6 9.4 - 12.4 fL [facility] nRBC 0 0 - 0 /100 WBC [facility] Specimen Blood Performing Organization Address City/[facility] Phone Number [place] [phone] [place] [address] CENTER EKG 12 lead (03/05/2018 6:32 AM CARPET INSPECTOR)Only the most recent of5 resultswithin the time period is included. Specimen Narrative Performed At Ventricular Rate 86 BPM GE MUSE Atrial Rate 86 BPM P-R Interval 176 ms QRS Duration 92 ms Q-T Interval 348 ms QTC Calculation(Bazett) 416 ms P [place] 58 degrees R [place] -6 degrees T [place] 37 degrees Sinus rhythm with Premature atrial complexes Nonspecific T wave abnormality Abnormal ECG 04 Mar 2018 05:33 No significant changes Confirmed by MD MOBLEY YOCHAI ([id number]) on 03/07/2018 6:42:01 AM Procedure Note Interface, External Ris In - 03/07/2018 6:42 AM CARPET INSPECTOR Ventricular Rate 86 BPM Atrial Rate 86 BPM P-R Interval 176 ms QRS Duration 92 ms Q-T Interval 348 ms QTC Calculation(Bazett) 416 ms P [place] 58 degrees R [place] -6 degrees T [place] 37 degrees Sinus rhythm with Premature atrial complexes Nonspecific T wave abnormality Abnormal ECG 04 Mar 2018 05:33 No significant changes Confirmed by MD MOBLEY YOCHAI ([id number]) on 03/07/2018 6:42:01 AM Performing Organization Address City/[facility] Phone Number [place] MUSE Prepare RBC (03/04/2018 11:54 PM CARPET INSPECTOR)Only the most recent of2 resultswithin the time period is included. CROSSMATCH COMPATIBLE SAFETRACE TX Unit ABO O Pos SAFETRACE TX UNIT NUMBER [id number] SAFETRACE TX Status TRANSFUSED SAFETRACE [place] Blood Bank Product RED BLOOD CELLS SAFETRACE TX PRODUCT CODE [id number] SAFETRACE TX CROSSMATCH COMPATIBLE SAFETRACE TX Unit ABO O Pos SAFETRACE TX UNIT NUMBER [id number] SAFETRACE TX Status RETURNED FROM ISSUE SAFETRACE TX Blood Bank Product RED BLOOD CELLS SAFETRACE TX PRODUCT CODE [id number] SAFETRACE TX CROSSMATCH COMPATIBLE SAFETRACE TX Unit ABO O Pos SAFETRACE TX UNIT NUMBER [id number] SAFETRACE TX Status TRANSFUSED SAFETRACE TX Blood Bank Product RED BLOOD CELLS SAFETRACE TX PRODUCT CODE [id number] SAFETRACE TX CROSSMATCH COMPATIBLE SAFETRACE TX Unit ABO O Pos SAFETRACE TX UNIT NUMBER [id number] SAFETRACE TX Status TRANSFUSED SAFETRACE TX Blood Bank Product RED BLOOD CELLS SAFETRACE TX PRODUCT CODE [id number] SAFETRACE TX Performing Organization Address [facility] Phone Number [place]AF[place]ACE [place] Oxygen saturation, measured (03/03/2018 3:48 PM CARPET INSPECTOR) O2 Saturation (Measured) 72.2 % [facility] Specimen Blood Performing Organization Address [facility] Phone Number [address] [address] [place] Lactic acid, arterial, whole blood (03/03/2018 3:48 PM CARPET INSPECTOR) Lactate, Art 1.0 0.5 - 2.2 mmol/L [facility] Specimen Blood, Arterial Performing Organization Address [facility] Phone Number [address] [address] CENTER aPTT (03/03/2018 3:48 PM CARPET INSPECTOR)Only the most recent of3 resultswithin the time period is included. PTT 27.5 22.5 - 36.0 seconds [facility] Specimen Blood Performing Organization Address [facility] Phone Number [facility] [address] [place] [address] CENTER Prothromin time/INR (03/03/2018 3:48 PM CARPET INSPECTOR)Only the most recent of3 resultswithin the time period is included. Protime 16.6 (H) 11.7 - 14.7 seconds [facility] INR 1.3 <=5.9 [facility] Specimen Blood Narrative Performed At RECOMMENDED COUMADIN/WARFARIN INR THERAPY [facility] RANGES STANDARD DOSE: 2.0 - 3.0 Includes: PROPHYLAXIS for venous thrombosis, systemic embolization; TREATMENT for venous thrombosis and/or pulmonary embolus. HIGH RISK: Target INR is 2.5-3.5 for patients with mechanical heart valves. Performing Organization Address [facility] Phone Number [address] [phone] CENTER Fibrinogen (03/03/2018 3:48 PM CARPET INSPECTOR)Only the most recent of2 resultswithin the time period is included. Fibrinogen 294 225 - 434 mg/dl [facility] Specimen Blood Performing Organization Address [facility] Phone Number [address] [address] [phone] [place] Thromboelastograph (TEG) (03/03/2018 2:29 PM CARPET INSPECTOR) TEG Activated Clotting Time 6.8 4.0 - 7.0 minutes [facility] TEG Fibrinogen Activity 59.6 (L) 61.0 - 73.0 degrees [facility] TEG Platelet Aggregation 51.0 (L) 55.0 - 65.0 MM [facility] TEG-H Activated Clotting Time 7.5 (H) 4.0 - 7.0 minutes [facility] TEG-H Fibrinogen Activity 60.6 (L) 61.0 - 73.0 degrees [facility] TEG-H Platelet Aggregation 46.7 (L) 55.0 - 65.0 MM [facility] Specimen Blood Performing Organization Address City/[facility]/Zipcode Phone Number [address] [phone] CENTER Platelet count (03/03/2018 2:29 PM CARPET INSPECTOR) Platelets 61 (L) 150 - 450 K/CU MM [facility] Specimen Blood Performing Organization Address City/[facility] Phone Number [address] [address] CENTER POC ACTIVATED CLOTTING TIME (03/03/2018 2:22 PM CARPET INSPECTOR)Only the most recent of4 resultswithin the time period is included. Activated Clotting Time 103Comment: TESTED AT sec [address] [address] Specimen Blood Performing Organization Address [facility] Phone Number [address] [phone] CENTER Transfuse Leuko-Red RBC (03/03/2018 1:40 PM CARPET INSPECTOR)Only the most recent of3 resultswithin the time period is included.XR chest 2 views (02/23/2018 2:26 PM CARPET INSPECTOR) Specimen Narrative Performed At FINAL REPORT GE RIS Chest x-ray, PA and lateral views Clinical History: No admission diagnoses are documented for this encounter. Comparison:None Findings: The cardiac and mediastinal contours are normal. There is a left Port-A-Cath, tip projects over the right atrium. There is no pneumothorax, aubree pulmonary edema, consolidation or pleural effusion. The bony structures are unremarkable. Impression: No acute process identified. Signed: Rain Bains MD Report Verified Date/Time:02/23/2018 15:56:49 Reading Location: [facility] [id number] Consult Reading Room Procedure Note Interface, External Ris In - 02/23/2018 3:59 PM CARPET INSPECTOR FINAL REPORT Chest x-ray, PA and lateral views Clinical History: No admission diagnoses are documented for this encounter. Comparison: None Findings: The cardiac and mediastinal contours are normal. There is a left Port-A-Cath, tip projects over the right atrium. There is no pneumothorax, aubree pulmonary edema, consolidation or pleural effusion. The bony structures are unremarkable. Impression: No acute process identified. Signed: Rain Bains MD Report Verified Date/Time: 02/23/2018 15:56:49 Reading Location: [facility] [id number] Consult Reading Room Performing Organization Address [facility] Phone Number [facility] Lipid panel (02/23/2018 1:31 PM CARPET INSPECTOR) Triglycerides 208 mg/dL [facility] Cholesterol 113 mg/dL [facility] HDL 26 mg/dL [facility] LDL Calculated 45 mg/dL [facility] Specimen Blood Narrative Performed At Triglyceride Reference Range: [facility] Low Risk <150 [id number] High Risk 200-499 Very High Risk>=500 Cholesterol Reference Range: Low Risk <200 [id number] High Risk>240 HDL Cholesterol Reference Range: Low Risk >=60 High Risk <40 LDL Cholesterol Reference Range: Optimal<100 Near [id number] Very High >=190 Performing Organization Address [facility] Phone Number [address] [address] [place] Comprehensive metabolic panel (02/23/2018 1:31 PM CARPET INSPECTOR) Protein, Total 6.1 6.0 - 8.3 gm/dL [facility] Albumin 3.7 3.5 - 5.0 g/dL [facility] Alkaline Phosphatase 60 40 - 150 U/L [facility] Total Bilirubin 0.5 0.2 - 1.2 mg/dL [facility] Sodium 137 136 - 145 meq/L [facility] Potassium 5.8 (H) 3.5 - 5.1 meq/L [facility] Chloride 109 (H) 98 - 107 meq/L [facility] CO2 22 22 - 29 meq/L [facility] BUN 26 (H) 7 - 21 mg/dL [facility] Creatinine 2.33 (H) 0.57 - 1.25 mg/dL [facility] Glucose 152 (H) 70 - 105 mg/dL [facility] Calcium 8.9 8.4 - 10.2 mg/dL [facility] AST 12 5 - 34 U/L [facility] ALT 13 6 - 55 U/L [facility] EGFR 28Comment: ESTIMATED GFR mL/min/1.73 sq m [facility] IS NOT ACCURATE [facility] CREATININE CLEARANCE IN PREDICTING GLOMERULAR FILTRATION RATE. ESTIMATED GFR IS NOT APPLICABLE FOR DIALYSIS PATIENTS. Specimen Blood Performing Organization Address City/State/Zipcode Phone Number [facility] [address] [place] [phone] CENTER after 09/27/2017 Insurance Payer Benefit Plan / Group Subscriber ID Type Phone Address MEDICARE MEDICARE A B xxxxxxxxxxx Medicare MCR SUPPLEMENT/INDIVIDUAL AARP/[facility] xxxxxxxxxxx Medigap Advance Directives For more information, please contact:[address] [phone] Code Status Date Activated Date Inactivated Comments Full Code 05/17/2018 11:42 PM 05/24/2018 7:00 PM This code status was determined by: Patient Full Code 04/26/2018 10:04 PM 04/27/2018 10:20 PM This code status was determined by: Patient Partial Code 03/03/2018 9:35 AM 03/03/2018 3:11 PM This code status was determined by: Patient Drug Protocol After Arrest Occurs? Yes Mechanical Ventilation with Intubation? No Bag/Mask? No Internal/External Pacemaker? No Transfer to Critical Care? No Chest Compressions? No Defibrillation/Cardioversion? No
--- OUTSIDE RECORDS SUMMARY | 2018-09-28 10:48 | XMS REPORT ---
:1955 Author Organization [employer] Care Team Providers Name Role Phone Lane [...] Medications Results No Known Results Summary Purpose [facility] Submission
--- OUTSIDE RECORDS SUMMARY | 2018-09-28 10:48 | XMS REPORT ---
[...] End Date Status Dosage Date Flomax [facility] [id number] 0.4 MG Orally Active 2 capsule Once a day Results No Known Results Summary Purpose eClinicalWorks Submission
--- OUTSIDE RECORDS SUMMARY | 2018-09-28 10:48 | XMS REPORT ---
[...] End Status Dosage System Date Date Dexilant [facility] 68928130743 60 MG Orally Active 1 capsule Once a day Januvia [facility] 14498244108 100 MG Orally Active 1 tablet Once a day Pantoprazole [facility] 29700907629 40 MG Orally Active 1 tablet Sodium Once a day Flomax [facility] 92451892977 0.4 MG Orally Active 2 capsule Once a day Lantus SoloStar [facility] 57832663283 100 UNIT/ML Active not Subcutaneous defined Gabapentin [facility] 19273087449 100 MG Orally Active 1 capsule Three times a day Lisinopril [facility] 59167119408 2.5 MG Orally Active 1 tablet Once a day Ferrous Sulfate [facility] [address]-55 325 (65 Fe) MG Active 1 tablet Orally twice a day Celecoxib [facility] 03946116736 200 MG Orally Active 1 capsule Once a day with food Lovastatin [facility] 03480662326 20 MG Orally Active 1 tablet Once a day with a meal Mesalamine [facility] 40380744683 1.2 GM Orally Active 2 tablets Twice a day Metformin HCl [facility] 20189246134 1000 MG Orally Active 1 tablet Twice a day with meals Metoprolol [facility] 29309158477 100 MG Orally Active 1 tablet Tartrate Twice a day with food Amiloride-[place] [facility] 69347794825 5-50 MG Orally Active 1 tablet chlorothiazide Once a day with food Celecoxib [facility] 83365987380 200 Active TAKE 1 CAPSULE BY MOUTH DAILY Results No Known Results Summary Purpose eClinicalWorks Submission
--- OUTSIDE RECORDS SUMMARY | 2018-09-28 10:48 | XMS REPORT ---
:1955 Author Organization [employer] Care Team Providers Name Role Phone Lane [...] Medications Results No Known Results Summary Purpose [employer] Submission
--- OUTSIDE RECORDS SUMMARY | 2018-09-28 10:48 | XMS REPORT ---
:1955 Author Organization [employer] Care Team Providers Name Role Phone Lane [...] Medications Results No Known Results Summary Purpose [employer] Submission
--- OUTSIDE RECORDS SUMMARY | 2018-09-28 10:51 | XMS REPORT ---
:1955 Author Organization [employer] Care Team Providers Name Role Phone Lane [...] Medications Results No Known Results Summary Purpose TELiBrahmain[employer]SeptRx Submission
--- OUTSIDE RECORDS SUMMARY | 2018-09-28 10:51 | XMS REPORT ---
[...] Status Dosage System Date Date Ed Contour [facility] [id number] - In Vitro August 25, Active use with Next Test twice daily 2018 glucometer Results No Known Results Summary Purpose [facility] Submission
--- OUTSIDE RECORDS SUMMARY | 2018-09-28 10:51 | XMS REPORT ---
[...] Medications Results No Known Results Summary Purpose eClinicalThe Bucket BBQ Submission
--- OUTSIDE RECORDS SUMMARY | 2018-09-28 10:51 | XMS REPORT ---
[...] Medications Results No Known Results Summary Purpose eClinicalPick a Student Submission
--- OUTSIDE RECORDS SUMMARY | 2018-09-28 10:51 | XMS REPORT ---
:1955 Author Organization [facility] Address [address] [place] [address] Care Team Providers Name Role Phone RUBY JORGE Unavailable Unavailable SOL MCCORMACK Unavailable Unavailable Problems This patient has no known problems. Allergies, Adverse Reactions, Alerts This patient has no known allergies or adverse reactions. Medications This patient has no known medications. Results Test Description Test Time Test Comments Text Results Atomic Results Result Comments FL, CYSTOGRAM, 2018-06-07 15:15:00 Reason for FINAL REPORT PATIENT STATIC Exam:->bladder ca ID: [id number] Cystogram, 06/07/2018 HISTORY: Status post cystectomy with neobladder Modality: Fluoroscopy, fluoroscopy time: 1.7 minutes, total dose: 106.2 mGy, reference air kerma method : Contrast was slowly infused with fluoroscopic control into the indwelling Lorenz catheter. There is opacification of a neobladder [...] evidence of leakage contrast.. Signed: Tata Klein MDReport Verified Date/Time: 06/07/2018 15:15:13 Reading Location: [address] Radiology Reading Room E CULTURE 2018-05-26 11:18:00 Test Item Value Reference Range Comments CULTURE (BEAKER) (test COAGULASE NEGATIVE 10-19,000 col/mL Coagulase efgz=9463) STAPHYLOCOCCUS negative Staphylococcus Clindamycin (test code=10) Erythromycin (test code=4) Linezolid (test code=40) Nitrofurantoin (test code=23) Oxacillin (test code=14) Rifampin (test code=43) Tetracycline (test code=2) Oxacillin (test code=14) Rifampin (test code=43) Tetracycline (test code=2) Vancomycin (test code=13) TISSUE [id number] 14:04:00Surgical Pathology Report Case: [id number] Authorizing Provider: Ruby Jorge MD Collected: 05/17/2018 1258 Ordering Location: [facility] Received: 05/17/2018 1319 SERVICES Pathologist: Nj Charles MD Specimens: A) - Ureter, Left, left distal ureteral margin B) - Ureter, Right, right distal ureteral margin C) - Ureter, Left, left ureteral margin. ink hardwick true margin D) - Lymph Node, alex prostatic lymph node(s) E) - Lymph Node,right external iliac lymph node(s) F) - Lymph Node, right obturator lymph node(s) G) - Lymph Node, rightcommon iliac lymph node( s) H) - Lymph Node, right interal iliac lymph node(s) I) - Lymph Node, left external iliac lymph node(s) J) - Lymph Node, left obturatorlymph node(s) K) - Lymph Node, left common iliaclymph node(s) L) - Lymph Node, left hypogastric lymph node(s) M) - Lymph Node, PRESACRAL LYMPH NODE N) - Lymph Node, left internall iliac lymphnode(s) O) - Lymph Node, LEFT COMMON ILIAC SUSPICIOUS LYMPH NODE P) - Ureter, Left, Third resection Left Distal Ureteral Margin, ink hardwick the true margin Q) - Urethral, Urethral margin R) - Prostate, Prostate and bladder S) - Small Bowel, NOS, Discarded segment of small bowel T) - Ureter, Left, Left final ureteral margin - ink hardwick the true margin A. URETER, LEFT DISTAL MARGIN, EXCISION:- UROTHELIAL CARCINOMA IN-SITUB. URETER,RIGHT DISTAL MARGIN, EXCISION:- NO PATHOLOGIC DIAGNOSISC. URETER, LEFT URETERAL MARGIN, EXCISION:- UROTHELIAL CARCINOMA IN-SITUD. SOFT TISSUE, LABELED "LYMPH NODE, ALEX-PROSTATIC ", EXCISION: - BENIGN FIBROADIPOSE TISSUE- NO LYMPH NODE IDENTIFIED E. LYMPH NODE, RIGHT EXTERNAL ILIAC, DISSECTION: - NINE BENIGN LYMPH NODES (0/9) F. LYMPH NODE, RIGHT OBTURATOR, DISSECTION: - SIX BENIGN LYMPH NODES (0/6) G. LYMPH NODE, RIGHT COMMON ILIAC, DISSECTION: - FIVE BENIGN LYMPH NODES (0/5) H. LYMPH NODE, RIGHT INTERNAL ILIAC, DISSECTION: - FOUR BENIGN LYMPH NODES (0/4) I. LYMPH NODE, LEFT EXTERNAL ILIAC, DISSECTION:- TWO BENIGN LYMPH NODES (0/2) J. LYMPH NODE, LEFT OBTURATOR, DISSECTION:-THREE BENIGN LYMPH NODES (0/3) K. LYMPH NODE, LEFT COMMON ILIAC, DISSECTION:- THREE OUT OF FOUR LYMPH NODES POSITIVE FOR METASTATIC CARCINOMA (3/4) L. SOFT TISSUE, LABELED "LYMPH NODE, LEFT HYPOGASTRIC", EXCISION: - BENIGN FIBROADIPOSE TISSUE- NO LYMPH NODE IDENTIFIED M. SOFT TISSUE, LABELED "LYMPH NODE, PRE-SACRAL", EXCISION:- BENIGN FIBROADIPOSE TISSUE- NO LYMPH NODE IDENTIFIED N. SOFT TISSUE, LABELED "LYMPH NODE, LEFT INTERNAL ILIAC", EXCISION: - BENIGN FIBROADIPOSE TISSUE- NO LYMPH NODE IDENTIFIED O. LYMPH NODE, SUBMITTED "LEFT COMMON ILIAC SUSPICIOUS", EXCISION:- ONE FRAGMENTED LYMPH NODE POSITIVE FOR METASTATIC CARCINOMA (02/09)P. URETER, SUBMITTED "LEFT DISTAL URETERAL MARGIN THIRD RESECTION", EXCISION:- NOPATHOLOGIC DIAGNOSIS AT SURGICAL MARGIN- DEEPER LEVELS ON PERMANENT SECTIONS SHOW UROTHELIAL CARCINOMA IN SITUQ. URETHRA, MARGIN, EXCISION:- NO PATHOLOGIC DIAGNOSISR. 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 SMALL BOWEL, SUBMITTED "DISCARDED SEGMENT", EXCISION:- SMALL BOWEL WITH NO SIGNIFICANT PATHOLOGIC ALTERATION- NEGATIVE FOR CARCINOMAT. URETER, SUBMITTED LEFT FINAL URETERAL MARGIN", EXCISION:- NO PATHOLOGIC DIAGNOSIS Signing Pathologist Direct Phone Line: [phone] signed by Nj Charles MD on 05/25/2018 at 2:04 PMPreliminary result electronically signed by Nj Charles MD on 05/21/2018 at 10:47 AMThe positive lymph nodes show urothelial carcinoma with clear cell change in most of the tumor cells. Approximately 1-2% of the metastatic tumor shows squamous differentiation with keratinization. There is largevolume prostatic adenocarcinoma in the right transition zone with small foci in the left transition zone and peripheral zones. All tumors are confined to the prostate. URINARY BLADDER: Cystectomy, Anterior Exenteration (Bladder Res - All Specimens)SPECIMEN Procedure: Radical cystectomy TUMORTumor Site: Posterior wall Histologic Type: Urothelial carcinoma invasive Histologic Grade: High-grade Tumor Size: Greatest dimension in Centimeters (cm): 1.5 Centimeters (cm) Tumor Extent : Tumor Extension: Tumor invades muscularis propria : Tumor invades superficial muscularis propria (inner half) Accessory Findings : Lymphovascular Invasion: Present MARGINS Margins: Uninvolved by invasive carcinoma and carcinoma in situ / noninvasive urothelial carcinoma LYMPH NODES Number of Lymph Nodes Involved: 4 Number of Lymph Nodes Examined: 34 PATHOLOGIC STAGE CLASSIFICATION (pTNM, AJCC 8th Edition) TNM Descriptors: Not applicable Primary Tumor (pT): pT2a Regional Lymph Nodes (pN): pN3 ADDITIONAL FINDINGS Additional Pathologic Findings: Urothelial carcinoma in situ Additional Pathologic Findings: Urothelial carcinoma in situ in superficial prostatic ducts. PROSTATE GLAND: Radical Prostatectomy (Prostate Res - All Specimens)SPECIMEN Procedure: Cystoprostatectomy Prostate Size: Prostate Greatest Dimension in Centimeters (cm): 4.5 Centimeters (cm) Additional Dimension in Centimeters (cm): 3.2 Centimeters (cm) Additional Dimension in Centimeters (cm): 2.4 Centimeters (cm)TUMOR Histologic Type: Acinar adenocarcinoma Histologic Grade: Keshav Pattern: Percentage of Pattern 4: 20 % Percentage of Pattern 5: 0 % Primary [place] Pattern: Pattern 3 Secondary Keshav Pattern: Pattern 4 Tertiary Keshav Pattern: Not applicable Total [place] Score: 7 Grade Group: 2 Intraductal Carcinoma (IDC): Not identified Tumor Extent: Tumor Quantitation: Estimated percentage of prostate involved by tumor: 15 % Extraprostatic Extension (EPE): Not identified Urinary Bladder Neck Invasion: Not identified Seminal Vesicle Invasion: Not identified Accessory Findings: Treatment Effect: No known presurgical therapy Lymphovascular Invasion: Not Identified Perineural Invasion: Not identified MARGINS Margins: Uninvolved by invasive carcinoma : Benign prostate glands present at surgical margin LYMPH NODES Number of Lymph Nodes Involved: 0 Number of Lymph Nodes Examined: 34 PATHOLOGIC STAGE CLASSIFICATION (pTNM, AJCC 8th Edition) TNM Descriptors: Not applicable Primary Tumor (pT): pT2 Regional Lymph Nodes (pN): pN0 Distant Metastasis (pM): Not applicable - pM cannot be determined from the submitted specimen(s) ADDITIONAL FINDINGS Additional Pathologic Findings: High-grade prostatic intraepithelial neoplasia (PIN) Additional Pathologic Findings: Inflammation: chronic Additional Pathologic Findings: Nodular prostatic hyperplasia Comment(s) Comment(s): focal urothelial carcinoma in situ in superificial prostatic ducts. A. 45424, 01925O. 16412, 85694U. 63725, 93487G. 91042W. 20664G. 21284R. 94389Z.44508F. 40876I. 35293P. 24009D. 67972M. 40389K. 95402J. 93133J. 89424, 29979G. 84715, 91618 R. 97020H. 10373, 22403Q. 99003, 43472T. Left distal ureteral margin. B. Right distal ureteral margin. C. Left ureteral margin, ink hardwick true margin; D. Periprostatic lymph node; E.Right external iliac lymph node; F. Right obturator lymph node; G. Right common iliac lymph node; H.Right internal iliac lymph node; I. Left external iliac lymph node; J. Left obturator lymph node; K.Left common iliac lymph node; L. Left hypogastric lymph node; M. Presacral lymph node'; N. Left internal iliac lymph node; O. Left common iliac suspicious lymph node; P. left ureter; Q. Urethral; R. Prostate and bladder; S. Small bowel, discarded segment; T. Left final ureteral marginEnio Rock Received fresh, labeled with the patient's information and "left ureter" is a 0.7 cm in diameter x 0.3 cm long piece of tissue, with a lumen that measures 0.1 cm. The specimen is sent entirely for frozen section in cassette FSA1. /Ho Luther Received fresh for intraoperative consultation labeled with the patient's information and "right ureter" is a 0.3 cm long x 0.6 cm in diameter piece of tissue that has a 0.1 cm lumen. The specimen is submitted entirely for frozen section in cassette FSB1.Part C. Received fresh for intraoperative consultation labeled [...] is submitted in cassette C2 for permanent. /Ho D: The specimen is labeled "periprostatic lymph node" and consists of adipose tissue measuring 3 x 2 x 1 cm in aggregate yielding no palpable lymph node tissue. The fat is entirely submitted D1 and D2. Part E: The specimen is labeled "right external iliac lymph node" and consists of multiple fragments of adipose tissue measuring 5.5 x 4 x1.5 cm in aggregate yielding nine zhong fatty lymph nodes measuring up to 1.6 cm. The specimen is entirely submitted as follows: E1, five lymph nodes; E2 to E5, one lymph node bisected in each cassette; E6 through E10, remainder of adipose tissue. Part F : The specimen is labeled "right obturator lymphnode" consists of adipose tissue measuring 5 x 2.5 x 1.5 cm yielding five zhong fatty lymph nodes measuring up to 4 cm. The specimen is entirely submitted as follows: F1, two lymph nodes; F2, one lymph node bisected; F3, one lymph node bisected; F4 and 5, largest lymph node bisected; F6, remainder of adipose tissue; Part G: The specimen is labeled "right common iliac lymph node" and consists of adiposetissue measuring 3 x 2 x 1 cm in aggregate consisting of a single zhong fatty lymph node measuring 2.5x 1 x 0.4 cm. The lymph node is entirely submitted G1 and G2. G3 and 4, remainder of fat. Part H: The specimen is labeled "right internal iliac iliac lymph node" and consists of adipose tissue measuring 4 x 2.5 x 1 cm in aggregate yielding two zhong lymph nodes measuring up to 1 cm. The specimen is entirely submitted as follows: H1, two lymph nodes; H2 to 4, remainder of fat. Part I: The specimen is labeled "left external iliac lymph node" and consists of multiple fragments of adipose tissue measuring4.2 x 3 x 1.5 cm in aggregate [...] measuring up to 3 cm in greatest dimension. The specimen is entirely submitted as follows: J1, one lymph node; J2 and J3, one lymph node serially sectioned; J4 and J5, one lymph node sectioned; J6, remainder of fat. Part K: The specimen is labeled "left common iliac lymph node " consists of several fragments of adipose tissue measuring 4 x 3 x 1.5 cm yielding five zhong-white lymph nodes measuring up to 2.6 cm. The specimen is entirely submitted as follows: K1, two lymph nodes; K2, one lymph node bisected ; K3 and 4, one lymph node bisected; [...] yielding no grossly identifiable lymph node tissue. Thespecimen is entirely submitted M1 and M2. Part N: The specimen is labeled "left internal iliac lymphnode" and consists of adipose tissue measuring 3 x 1.5 x 1 cm yielding one lymph node measuring 0.8 cm in greatest dimension. The specimen is entirely submitted as follows: N1, one lymph node; [...] true margin)" is a ureteral resection that measures 2.3 cm long x 0.7 cm in [...] submitted entirely for frozen in cassette FSQ1. DR/ Becka R received fresh, labeled with the patient's [...] x 3.2 x 2.4 cm), the right seminal vesicle is 2.8 x 1.5 x 1 cm, left seminal vesicle is 3.3 x 1.6 x 1.1 cm, right vas deferens is 5.6 cm long x 0.7 cm in diameter, left vas deferens is 5.4 cm long x 0.7 cm in diameter). The specimen is inked and opened to reveal an ulcerated tumor in the posterior wall of the bladder that measures 4.8 x 4.1 cm. The specimen is serially sectioned, and the tumor is 1.1 cm thick and appears to infiltrate the muscularis propria butdoes not extend into the serosa. The tumor is located 3.1 cm from the right ureter, 1.8 cm from the left ureter and 6.3 cm from the urethra. The remainder of the mucosa is edematous, and no other lesions are identified. The ureteral orifices are patent and uninvolved by tumor. The prostate is seriallysectioned and has a zhong-white cut surface with no nodules identified. The seminal vesicles and vas deferens are uninvolved. The fat is serially sectioned, but no lymph nodes are identified.Hardware Design Engineer sections are submitted as follows:Ink code: Black right, blue left.Section code:FSR1-15, tumor entirely sectioned in posterior wall, full-thickness ojryhnxoN09, tumor to left muebcmF12, right ureter to wpuxejvR07, anterior wallR19, domeR20, right lateral wallR21, left lateral wallR22, zuxoydpG44, uninvolved posterior iowdK91-44, prostate submitted entirelyDR/ewPart S labeled "small bowel discarded segment" consists [...] with a 0.3 cm lumen. The new marginis inked blue and submitted entirely T1. CG/pl FSA1:URETER, LEFT DISTAL MARGIN, EXCISION: - POSITIVE FOR UROTHELIAL CARCINOMA, NONINVASIVE - IN SITUThis was verbally reported by Dr. Guajardo to Dr. Jorge on May 17, 2018 at 1:35 p.m.FSB:URETER, RIGHT DISTAL MARGIN, EXCISION: - NEGATIVE This was verbally reported by Dr. Guajardo to Dr. Jorge on May 17, 2018 at 2:04 p.m.FSC:URETER, LEFT MARGIN, EXCISION :- POSITIVE FOR UROTHELIAL CARCINOMA, NONINVASIVE This was verbally reported by Dr. Guajardo to Dr. Jorgeon May 17, 2018 at 2:04 p.m.P. FSP, URETER, THIRD RESECTION LEFT DISTAL, EXCISION: - NEGATIVE This was verbally reported by Dr. Guajardo to Dr. Jorge on May 17, 2018 at 7:25 p.m.Q. FSQ, URETHRAL MARGIN, EXCISION : - NEGATIVE This was verbally reported by Dr. Guajardo to Dr. Jorge on May 17, 2018 at 7:20p.m. A-T: PerformedPOCT-GLUCOSE [id number] 13:08:00 Test Item Value Reference Range Comments POC-GLUCOSE METER (BEAKER) 141 mg/dL 70-110 TESTED AT [facility] [address] [facility] (test zaln=3226) [facility] [address] [id number] 08:05:00 Test Item Value Reference Range Comments PHOSPHORUS (BEAKER) (test wrdf=582) 3.4 mg/dL 2.3-4.7 [id number] 08:05:00 Test Item Value Reference Range Comments MAGNESIUM (BEAKER) (test usmi=116) 1.5 mg/dL 1.6-2.6 BASIC METABOLIC [id number] 08:05:00 Test Item Value Reference Range Comments SODIUM (BEAKER) (test 137 meq/L 136-145 mlxz=192) POTASSIUM (BEAKER) (test 4.5 meq/L 3.5-5.1 jxqs=720) CHLORIDE (BEAKER) (test 105 meq/L 98-107 aahe=033) CO2 (BEAKER) (test 24 meq/L 22-29 ixue=743) BLOOD UREA NITROGEN 29 mg/dL 7-21 (BEAKER) (test djjk=317) CREATININE (BEAKER) (test 1.60 mg/dL 0.57-1.25 amps=312) GLUCOSE RANDOM (BEAKER) 91 mg/dL 70-105 (test lmin=617) CALCIUM (BEAKER) (test 9.3 mg/dL 8.4-10.2 tgqz=490) EGFR (BEAKER) (test 44 mL/min/1.73 sq m ESTIMATED GFR IS NOT hoam=5738) ACCURATE CREATININE CLEARANCE IN PREDICTING GLOMERULAR FILTRATION RATE. ESTIMATED GFR IS NOT APPLICABLE FOR DIALYSIS PATIENTS. POCT-GLUCOSE [id number] 07:53:00 Test Item Value Reference Range Comments POC-GLUCOSE METER (BEAKER) 124 mg/dL 70-110 TESTED AT [address] (test wunt=9863) [facility] [address] [id number] 06:22:00 Test Item Value Reference Range Comments PROTIME (BEAKER) (test iylx=912) 13.8 seconds 11.7-14.7 INR (BEAKER) (test epmu=855) 1.0 <=5.9 PARTIAL THROMBOPLASTIN TIME (BEAKER) (test 40.2 seconds 22.5-36.0 eivf=473) RECOMMENDED COUMADIN/WARFARIN INR THERAPY RANGESSTANDARD DOSE: 2.0 - 3.0 Includes: PROPHYLAXIS forvenous thrombosis, systemic embolization; TREATMENT for venous thrombosis and/or pulmonary embolus.HIGH RISK: Target INR is 2.5-3.5 for patients with mechanical heart valves.POCT-GLUCOSE [id number] 01:19:00 Test Item Value Reference Range Comments POC-GLUCOSE METER (BEAKER) 90 mg/dL 70-110 TESTED AT [facility] [address] [facility] (test dkkv=4199) [facility] [address] POCT-GLUCOSE [id number] 21:12:00 Test Item Value Reference Range Comments POC-GLUCOSE METER (BEAKER) 156 mg/dL 70-110 TESTED AT [address] (test sohj=9079) [facility] [address] POCT-GLUCOSE [id number] 18:50:00 Test Item Value Reference Range Comments POC-GLUCOSE METER (BEAKER) 174 mg/dL 70-110 TESTED AT [address] (test uuot=8009) [facility] [address] POCT-GLUCOSE [id number] 17:21:00 Test Item Value Reference Range Comments POC-GLUCOSE METER (BEAKER) 56 mg/dL 70-110 TESTED AT [address] (test oarb=9982) [facility] [address] POCT-GLUCOSE [id number] 17:10:00 Test Item Value Reference Range Comments POC-GLUCOSE METER (BEAKER) 113 mg/dL 70-110 TESTED AT [address] (test rhxk=0219) [facility] [address] POCT-GLUCOSE [id number] 08:32:00 Test Item Value Reference Range Comments POC-GLUCOSE METER (BEAKER) 71 mg/dL 70-110 TESTED AT [address] (test ceuu=7316) [facility] [address] [id number] 08:09:00 Test Item Value Reference Range Comments PHOSPHORUS (BEAKER) (test tqyz=897) 3.2 mg/dL 2.3-4.7 [id number] 08:09:00 Test Item Value Reference Range Comments MAGNESIUM (BEAKER) (test kejd=935) 1.5 mg/dL 1.6-2.6 BASIC METABOLIC [id number] 08:09:00 Test Item Value Reference Range Comments SODIUM (BEAKER) (test 134 meq/L 136-145 qlgg=614) POTASSIUM (BEAKER) (test 4.0 meq/L 3.5-5.1 mfil=277) CHLORIDE (BEAKER) (test 104 meq/L 98-107 ctfn=909) CO2 (BEAKER) (test 22 meq/L 22-29 xdap=598) BLOOD UREA NITROGEN 32 mg/dL 7-21 (BEAKER) (test tegr=378) CREATININE (BEAKER) (test 1.56 mg/dL 0.57-1.25 shoq=497) GLUCOSE RANDOM (BEAKER) 58 mg/dL 70-105 (test szsv=406) CALCIUM (BEAKER) (test 8.9 mg/dL 8.4-10.2 dmfe=770) EGFR (BEAKER) (test 45 mL/min/1.73 sq m ESTIMATED GFR IS NOT ofhl=1250) ACCURATE CREATININE CLEARANCE IN PREDICTING GLOMERULAR FILTRATION RATE. ESTIMATED GFR IS NOT APPLICABLE FOR DIALYSIS PATIENTS. POCT-GLUCOSE [id number] 07:57:00 Test Item Value Reference Range Comments POC-GLUCOSE METER (BEAKER) 48 mg/dL 70-110 TESTED AT [facility] [address] [facility] (test fvrc=9482) [facility] [address] [id number] 07:04:00 Test Item Value Reference Range Comments PROTIME (BEAKER) (test vbct=093) 13.9 seconds 11.7-14.7 INR (BEAKER) (test hsws=127) 1.0 <=5.9 PARTIAL THROMBOPLASTIN TIME (BEAKER) (test 41.3 seconds 22.5-36.0 wtfp=622) RECOMMENDED COUMADIN/WARFARIN INR THERAPY RANGESSTANDARD DOSE: 2.0 - 3.0 Includes: PROPHYLAXIS forvenous thrombosis, systemic embolization; TREATMENT for venous thrombosis and/or pulmonary embolus.HIGH RISK: Target INR is 2.5-3.5 for patients with mechanical heart valves.CBC W/PLT COUNT & AUTO [id number] 06:53:00 Test Item Value Reference Range Comments WHITE BLOOD CELL COUNT (BEAKER) (test sngz=064) 8.5 K/ L 3.5-10.5 RED BLOOD CELL COUNT (BEAKER) (test bnwh=318) 2.54 M/ L 4.63-6.08 HEMOGLOBIN (BEAKER) (test iemh=190) 7.6 GM/DL 13.7-17.5 HEMATOCRIT (BEAKER) (test nefe=777) 23.3 % 40.1-51.0 MEAN CORPUSCULAR VOLUME (BEAKER) (test othn=705) 91.7 fL 79.0-92.2 MEAN CORPUSCULAR HEMOGLOBIN (BEAKER) (test 29.9 pg 25.7-32.2 jgsl=979) MEAN CORPUSCULAR HEMOGLOBIN CONC (BEAKER) (test 32.6 GM/DL 32.3-36.5 veob=600) RED CELL DISTRIBUTION WIDTH (BEAKER) (test 13.2 % 11.6-14.4 rinr=553) PLATELET COUNT (BEAKER) (test hqts=931) 268 K/CU MM 150-450 MEAN PLATELET VOLUME (BEAKER) (test tgkb=374) 10.0 fL 9.4-12.4 NUCLEATED RED BLOOD CELLS (BEAKER) (test 0 /100 WBC 0-0 irgm=413) NEUTROPHILS RELATIVE PERCENT (BEAKER) (test 63 % uldk=311) LYMPHOCYTES RELATIVE PERCENT (BEAKER) (test 18 % izyy=713) MONOCYTES RELATIVE PERCENT (BEAKER) (test 11 % gupc=753) EOSINOPHILS RELATIVE PERCENT (BEAKER) (test 7 % hnfa=003) BASOPHILS RELATIVE PERCENT (BEAKER) (test 1 % mvpg=691) NEUTROPHILS ABSOLUTE COUNT (BEAKER) (test 5.38 K/ L 1.78-5.38 dolf=961) LYMPHOCYTES ABSOLUTE COUNT (BEAKER) (test 1.49 K/ L 1.32-3.57 xtcn=957) MONOCYTES ABSOLUTE COUNT (BEAKER) (test 0.91 K/ L 0.30-0.82 sepw=403) EOSINOPHILS ABSOLUTE COUNT (BEAKER) (test 0.56 K/ L 0.04-0.54 qwxu=505) BASOPHILS ABSOLUTE COUNT (BEAKER) (test 0.04 K/ L 0.01-0.08 cdly=914) IMMATURE GRANULOCYTES-RELATIVE PERCENT (BEAKER) 1 % 0-1 (test yypx=0309) POCT-GLUCOSE [id number] 01:01:00 Test Item Value Reference Range Comments POC-GLUCOSE METER (BEAKER) 61 mg/dL 70-110 TESTED AT [address] (test vens=0691) [facility] [address] POCT-GLUCOSE [id number] 22:03:00 Test Item Value Reference Range Comments POC-GLUCOSE METER (BEAKER) 110 mg/dL 70-110 TESTED AT [address] (test qrcu=6514) [facility] [address] POCT-GLUCOSE [id number] 18:47:00 Test Item Value Reference Range Comments POC-GLUCOSE METER (BEAKER) 82 mg/dL 70-110 TESTED AT [address] (test lkfl=6226) [place] [id number] POCT-GLUCOSE [id number] 12:15:00 Test Item Value Reference Range Comments POC-GLUCOSE METER (BEAKER) 99 mg/dL 70-110 TESTED AT [address] (test xteg=2233) [facility] [address] [id number] 09:29:00 Test Item Value Reference Range Comments PHOSPHORUS (BEAKER) (test shpo=414) 3.6 mg/dL 2.3-4.7 [id number] 09:29:00 Test Item Value Reference Range Comments MAGNESIUM (BEAKER) (test bdqv=936) 1.4 mg/dL 1.6-2.6 BASIC METABOLIC [id number] 09:29:00 Test Item Value Reference Range Comments SODIUM (BEAKER) (test 133 meq/L 136-145 raxm=141) POTASSIUM (BEAKER) (test 3.9 meq/L 3.5-5.1 blxl=993) CHLORIDE (BEAKER) (test 103 meq/L 98-107 tciz=852) CO2 (BEAKER) (test 22 meq/L 22-29 xoto=675) BLOOD UREA NITROGEN 31 mg/dL 7-21 (BEAKER) (test kops=842) CREATININE (BEAKER) (test 1.79 mg/dL 0.57-1.25 jnrz=895) GLUCOSE RANDOM (BEAKER) 91 mg/dL 70-105 (test ppnr=716) CALCIUM (BEAKER) (test 8.4 mg/dL 8.4-10.2 jgqm=182) EGFR (BEAKER) (test 38 mL/min/1.73 sq m ESTIMATED GFR IS NOT zbtg=9409) ACCURATE CREATININE CLEARANCE IN PREDICTING GLOMERULAR FILTRATION RATE. ESTIMATED GFR IS NOT APPLICABLE FOR DIALYSIS PATIENTS. POCT-GLUCOSE [id number] 08:04:00 Test Item Value Reference Range Comments POC-GLUCOSE METER (BEAKER) 113 mg/dL 70-110 TESTED AT [facility] [address] [facility] (test bbnt=[id number]) [facility] [address] CBC W/PLT COUNT & AUTO [id number] 07:38:00 Test Item Value Reference Range Comments WHITE BLOOD CELL COUNT (BEAKER) (test zfav=770) 8.2 K/ L 3.5-10.5 RED BLOOD CELL COUNT (BEAKER) (test idae=981) 2.43 M/ L 4.63-6.08 HEMOGLOBIN (BEAKER) (test ddmt=103) 7.2 GM/DL 13.7-17.5 HEMATOCRIT (BEAKER) (test xgac=072) 22.6 % 40.1-51.0 MEAN CORPUSCULAR VOLUME (BEAKER) (test nxws=058) 93.0 fL 79.0-92.2 MEAN CORPUSCULAR HEMOGLOBIN (BEAKER) (test 29.6 pg 25.7-32.2 jyhe=243) MEAN CORPUSCULAR HEMOGLOBIN CONC (BEAKER) (test 31.9 GM/DL 32.3-36.5 jzya=600) RED CELL DISTRIBUTION WIDTH (BEAKER) (test 13.2 % 11.6-14.4 rloa=017) PLATELET COUNT (BEAKER) (test jmwh=256) 203 K/CU MM 150-450 MEAN PLATELET VOLUME (BEAKER) (test ulpg=168) 10.3 fL 9.4-12.4 NUCLEATED RED BLOOD CELLS (BEAKER) (test 0 /100 WBC 0-0 orvc=786) NEUTROPHILS RELATIVE PERCENT (BEAKER) (test 65 % ucjy=078) LYMPHOCYTES RELATIVE PERCENT (BEAKER) (test 15 % tcez=926) MONOCYTES RELATIVE PERCENT (BEAKER) (test 11 % qssb=937) EOSINOPHILS RELATIVE PERCENT (BEAKER) (test 7 % yrbw=059) BASOPHILS RELATIVE PERCENT (BEAKER) (test 1 % jyis=495) NEUTROPHILS ABSOLUTE COUNT (BEAKER) (test 5.32 K/ L 1.78-5.38 znzn=681) LYMPHOCYTES ABSOLUTE COUNT (BEAKER) (test 1.26 K/ L 1.32-3.57 cmdv=065) MONOCYTES ABSOLUTE COUNT (BEAKER) (test 0.90 K/ L 0.30-0.82 polq=554) EOSINOPHILS ABSOLUTE COUNT (BEAKER) (test 0.61 K/ L 0.04-0.54 scqm=914) BASOPHILS ABSOLUTE COUNT (BEAKER) (test 0.05 K/ L 0.01-0.08 ppvs=403) IMMATURE GRANULOCYTES-RELATIVE PERCENT (BEAKER) 1 % 0-1 (test xrzz=2775) [id number] 06:33:00 Test Item Value Reference Range Comments PROTIME (BEAKER) (test geqj=088) 14.2 seconds 11.7-14.7 INR (BEAKER) (test rqgr=847) 1.1 <=5.9 PARTIAL THROMBOPLASTIN TIME (BEAKER) (test 41.4 seconds 22.5-36.0 vnux=304) RECOMMENDED COUMADIN/WARFARIN INR THERAPY RANGESSTANDARD DOSE: 2.0 - 3.0 Includes: PROPHYLAXIS forvenous thrombosis, systemic embolization; TREATMENT for venous thrombosis and/or pulmonary embolus.HIGH RISK: Target INR is 2.5-3.5 for patients with mechanical heart valves.POCT-GLUCOSE [id number] 03:44:00 Test Item Value Reference Range Comments POC-GLUCOSE METER (BEAKER) 71 mg/dL 70-110 TESTED AT [address] (test qhsk=6055) [place] [id number] POCT-GLUCOSE [id number] 21:56:00 Test Item Value Reference Range Comments POC-GLUCOSE METER (BEAKER) 165 mg/dL 70-110 TESTED AT [address] (test zuck=7080) [place] [id number] CBC W/PLT COUNT & AUTO [id number] 15:57:00 Test Item Value Reference Range Comments WHITE BLOOD CELL COUNT (BEAKER) (test hhny=181) 15.8 K/ L 3.5-10.5 RED BLOOD CELL COUNT (BEAKER) (test yswy=696) 2.60 M/ L 4.63-6.08 HEMOGLOBIN (BEAKER) (test ltic=859) 7.9 GM/DL 13.7-17.5 HEMATOCRIT (BEAKER) (test eygv=165) 24.6 % 40.1-51.0 MEAN CORPUSCULAR VOLUME (BEAKER) (test ekgm=646) 94.6 fL 79.0-92.2 MEAN CORPUSCULAR HEMOGLOBIN (BEAKER) (test 30.4 pg 25.7-32.2 tfkq=060) MEAN CORPUSCULAR HEMOGLOBIN CONC (BEAKER) (test 32.1 GM/DL 32.3-36.5 chgo=219) RED CELL DISTRIBUTION WIDTH (BEAKER) (test 13.3 % 11.6-14.4 htvq=194) PLATELET COUNT (BEAKER) (test jfgw=207) 204 K/CU MM 150-450 MEAN PLATELET VOLUME (BEAKER) (test xtlx=275) 10.2 fL 9.4-12.4 NUCLEATED RED BLOOD CELLS (BEAKER) (test 0 /100 WBC 0-0 qbcc=453) (CELLAVISION MANUAL DIFF)2018-05-21 15:57:00 Test Item Value Reference Range Comments NEUTROPHILS - REL (CELLAVISION)(BEAKER) (test 84 % avqc=0958) LYMPHOCYTES - REL (CELLAVISION)(BEAKER) (test 6 % royk=6705) MONOCYTES - REL (CELLAVISION)(BEAKER) (test 4 % pkcb=9876) EOSINOPHILS - REL (CELLAVISION)(BEAKER) (test 3 % soxw=2135) BANDS - REL (CELLAVISION)(BEAKER) (test 3 % 0-10 xwcg=7869) NEUTROPHILS - ABS (CELLAVISION)(BEAKER) (test 13.27 K/ul 1.78-5.38 ahmf=5477) LYMPHOCYTES - ABS (CELLAVISION)(BEAKER) (test 0.95 K/ul 1.32-3.57 hsou=9429) MONOCYTES - ABS (CELLAVISION)(BEAKER) (test 0.63 K/uL 0.30-0.82 hzjg=7770) EOSINOPHILS - ABS (CELLAVISION)(BEAKER) (test 0.47 K/uL 0.04-0.54 zfwx=6014) BANDS - ABS (CELLAVISION)(BEAKER) (test 0.47 K/uL 0.00-0.80 pizj=3149) TOTAL COUNTED (BEAKER) (test qcav=4375) 100 WBC MORPHOLOGY (BEAKER) (test xrcm=969) Normal GIANT PLATELETS (BEAKER) (test dbie=363) Present POLYCHROMATOPHILLIC RBCS(BEAKER) (test yxnl=941) 1+ few ANISOCYTOSIS (BEAKER) (test okxx=398) 2+ moderate MICROCYTES (BEAKER) (test rqbv=751) 2+ moderate ARTIFACT (CELLAVISION)(BEAKER) (test ddqn=7806) Present PLATELET CONCENTRATION (CELLAVISION)(BEAKER) Adequate (test oowf=4193) Received comment: User comments: Slide comments:RAD, CHEST, 1 VIEW, NON [id number] 14:19:00Reason for exam:->post picc line insertionShould this be performed at the bedside?->YesFINAL REPORT TECHNIQUE : Frontal chest radiograph dated 05/21/2018 CLINICAL HISTORY: Post PICC insertion COMPARISON STUDY: Chest radiograph dated 05/18/2018 IMPRESSION: Right- sided PICC is seen with the tip projected over the superior vena cava the level of the howie. A left-sided MediPort is unchanged in position. Atelectasis is seen in the left lung base. No pleural effusion or pneumothorax. Cardiomediastinal silhouette is normal in size. No pulmonary edema. Degenerative changes are seen in the spine. Midline sternotomy wires are intact and well aligned. Signed: Alex [place] Verified Date/Time: 01/2019 14:19:05 Reading Location: [facility] Radiology Reading Room POCT-GLUCOSE [id number] 13:13:00 Test Item Value Reference Range Comments POC-GLUCOSE METER (BEAKER) 89 mg/dL 70-110 TESTED AT [address] (test uqyt=7849) [place] [address] CREATININE, BODY [id number] 09:34:00 Test Item Value Reference Range Comments CREATININE FLUID (BEAKER) (test byly=618) 2.20 mg/dL Reference Range: No Normals Assay performance has not been validated for this type of specimen.POCT-GLUCOSE [id number] 08:24:00 Test Item Value Reference Range Comments POC-GLUCOSE METER (BEAKER) 210 mg/dL 70-110 TESTED AT [address] (test gocc=1528) [facility] [address] [id number] 05:41:00 Test Item Value Reference Range Comments PHOSPHORUS (BEAKER) (test mjga=610) 2.6 mg/dL 2.3-4.7 [id number] 05:41:00 Test Item Value Reference Range Comments MAGNESIUM (BEAKER) (test krsa=472) 1.7 mg/dL 1.6-2.6 BASIC METABOLIC [id number] 05:41:00 Test Item Value Reference Range Comments SODIUM (BEAKER) (test 135 meq/L 136-145 wftx=949) POTASSIUM (BEAKER) (test 4.4 meq/L 3.5-5.1 ohnk=366) CHLORIDE (BEAKER) (test 106 meq/L 98-107 lcgc=248) CO2 (BEAKER) (test 20 meq/L 22-29 zpro=117) BLOOD UREA NITROGEN 31 mg/dL 7-21 (BEAKER) (test ucva=714) CREATININE (BEAKER) (test 2.44 mg/dL 0.57-1.25 sdsp=793) GLUCOSE RANDOM (BEAKER) 130 mg/dL 70-105 (test zzvm=509) CALCIUM (BEAKER) (test 8.9 mg/dL 8.4-10.2 kiqe=214) EGFR (BEAKER) (test 27 mL/min/1.73 sq m ESTIMATED GFR IS NOT sejv=3652) ACCURATE CREATININE CLEARANCE IN PREDICTING GLOMERULAR FILTRATION RATE. ESTIMATED GFR IS NOT APPLICABLE FOR DIALYSIS PATIENTS. PT/[id number] 05:31:00 Test Item Value Reference Range Comments PROTIME (BEAKER) (test gjfw=518) 15.1 seconds 11.7-14.7 INR (BEAKER) (test phln=874) 1.2 <=5.9 PARTIAL THROMBOPLASTIN TIME (BEAKER) (test 37.5 seconds 22.5-36.0 znyc=894) RECOMMENDED COUMADIN/WARFARIN INR THERAPY RANGESSTANDARD DOSE: 2.0 - 3.0 Includes: PROPHYLAXIS forvenous thrombosis, systemic embolization; TREATMENT for venous thrombosis and/or pulmonary embolus.HIGH RISK: Target INR is 2.5-3.5 for patients with mechanical heart valves.POCT-GLUCOSE [id number] 21:58:00 Test Item Value Reference Range Comments POC-GLUCOSE METER (BEAKER) 280 mg/dL 70-110 TESTED AT [facility] [address] (test rpma=2787) [facility] [address] POCT-GLUCOSE [id number] 11:49:00 Test Item Value Reference Range Comments POC-GLUCOSE METER (BEAKER) 327 mg/dL 70-110 Notified JOSE ANTONIO CAMPBELL/TESTED AT [facility] (test dhsy=3097) [address] [facility] [address] POCT-GLUCOSE [id number] 05:52:00 Test Item Value Reference Range Comments POC-GLUCOSE METER (BEAKER) 207 mg/dL 70-110 TESTED AT [facility] [address] (test ncrh=7774) [place] [address] CBC W/PLT COUNT & AUTO [id number] 04:44:00 Test Item Value Reference Range Comments WHITE BLOOD CELL COUNT (BEAKER) (test ochb=413) 14.5 K/ L 3.5-10.5 RED BLOOD CELL COUNT (BEAKER) (test xawl=930) 2.75 M/ L 4.63-6.08 HEMOGLOBIN (BEAKER) (test pxbo=949) 8.3 GM/DL 13.7-17.5 HEMATOCRIT (BEAKER) (test wpil=173) 26.2 % 40.1-51.0 MEAN CORPUSCULAR VOLUME (BEAKER) (test nqdh=704) 95.3 fL 79.0-92.2 MEAN CORPUSCULAR HEMOGLOBIN (BEAKER) (test 30.2 pg 25.7-32.2 itvv=713) MEAN CORPUSCULAR HEMOGLOBIN CONC (BEAKER) (test 31.7 GM/DL 32.3-36.5 pdja=815) RED CELL DISTRIBUTION WIDTH (BEAKER) (test 13.6 % 11.6-14.4 neni=808) PLATELET COUNT (BEAKER) (test jryl=601) 178 K/CU MM 150-450 MEAN PLATELET VOLUME (BEAKER) (test rgxk=099) 10.6 fL 9.4-12.4 NUCLEATED RED BLOOD CELLS (BEAKER) (test 0 /100 WBC 0-0 tdjf=786) NEUTROPHILS RELATIVE PERCENT (BEAKER) (test 80 % aofh=510) LYMPHOCYTES RELATIVE PERCENT (BEAKER) (test 10 % focz=226) MONOCYTES RELATIVE PERCENT (BEAKER) (test 8 % olax=728) EOSINOPHILS RELATIVE PERCENT (BEAKER) (test 2 % odoo=961) BASOPHILS RELATIVE PERCENT (BEAKER) (test 0 % tvdo=469) NEUTROPHILS ABSOLUTE COUNT (BEAKER) (test 11.61 K/ L 1.78-5.38 gpya=282) LYMPHOCYTES ABSOLUTE COUNT (BEAKER) (test 1.38 K/ L 1.32-3.57 tiph=035) MONOCYTES ABSOLUTE COUNT (BEAKER) (test 1.20 K/ L 0.30-0.82 bhly=444) EOSINOPHILS ABSOLUTE COUNT (BEAKER) (test 0.22 K/ L 0.04-0.54 yvwb=945) BASOPHILS ABSOLUTE COUNT (BEAKER) (test 0.03 K/ L 0.01-0.08 zsax=677) IMMATURE GRANULOCYTES-RELATIVE PERCENT (BEAKER) 1 % 0-1 (test ugga=9471) [id number] 04:44:00 Test Item Value Reference Range Comments PHOSPHORUS (BEAKER) (test uwui=171) 2.5 mg/dL 2.3-4.7 [id number] 04:44:00 Test Item Value Reference Range Comments MAGNESIUM (BEAKER) (test twzz=111) 2.1 mg/dL 1.6-2.6 BASIC METABOLIC [id number] 04:44:00 Test Item Value Reference Range Comments SODIUM (BEAKER) (test 137 meq/L 136-145 jpxe=454) POTASSIUM (BEAKER) (test 4.3 meq/L 3.5-5.1 vkly=360) CHLORIDE (BEAKER) (test 108 meq/L 98-107 jnig=920) CO2 (BEAKER) (test 21 meq/L 22-29 erhg=186) BLOOD UREA NITROGEN 20 mg/dL 7-21 (BEAKER) (test blgm=323) CREATININE (BEAKER) (test 1.95 mg/dL 0.57-1.25 chzh=543) GLUCOSE RANDOM (BEAKER) 161 mg/dL 70-105 (test umit=014) CALCIUM (BEAKER) (test 8.8 mg/dL 8.4-10.2 dbio=994) EGFR (BEAKER) (test 35 mL/min/1.73 sq m ESTIMATED GFR IS NOT qspq=2382) ACCURATE CREATININE CLEARANCE IN PREDICTING GLOMERULAR FILTRATION RATE. ESTIMATED GFR IS NOT APPLICABLE FOR DIALYSIS PATIENTS. [id number] 04:40:00 Test Item Value Reference Range Comments PROTIME (BEAKER) (test tqzb=805) 14.1 seconds 11.7-14.7 INR (BEAKER) (test qlzh=104) 1.1 <=5.9 PARTIAL THROMBOPLASTIN TIME (BEAKER) (test 41.6 seconds 22.5-36.0 ueez=073) RECOMMENDED COUMADIN/WARFARIN INR THERAPY RANGESSTANDARD DOSE: 2.0 - 3.0 Includes: PROPHYLAXIS forvenous thrombosis, systemic embolization; TREATMENT for venous thrombosis and/or pulmonary embolus.HIGH RISK: Target INR is 2.5-3.5 for patients with mechanical heart valves.POCT-GLUCOSE [id number] 23:55:00 Test Item Value Reference Range Comments POC-GLUCOSE METER (BEAKER) 255 mg/dL 70-110 TESTED AT [facility] [address] [facility] (test xtas=1096) [facility] [address] POCT-GLUCOSE [id number] 18:39:00 Test Item Value Reference Range Comments POC-GLUCOSE METER (BEAKER) 226 mg/dL 70-110 TESTED AT [address] (test qwmr=2073) [facility] [address] CBC W/PLT COUNT & AUTO [id number] 16:29:00 Test Item Value Reference Range Comments WHITE BLOOD CELL COUNT (BEAKER) (test aucq=095) 16.5 K/ L 3.5-10.5 RED BLOOD CELL COUNT (BEAKER) (test jdyy=440) 2.81 M/ L 4.63-6.08 HEMOGLOBIN (BEAKER) (test fvwo=044) 8.7 GM/DL 13.7-17.5 HEMATOCRIT (BEAKER) (test jtgj=093) 27.2 % 40.1-51.0 MEAN CORPUSCULAR VOLUME (BEAKER) (test ankt=955) 96.8 fL 79.0-92.2 MEAN CORPUSCULAR HEMOGLOBIN (BEAKER) (test 31.0 pg 25.7-32.2 jlgh=942) MEAN CORPUSCULAR HEMOGLOBIN CONC (BEAKER) (test 32.0 GM/DL 32.3-36.5 ekzz=992) RED CELL DISTRIBUTION WIDTH (BEAKER) (test 13.7 % 11.6-14.4 jghd=518) PLATELET COUNT (BEAKER) (test xfwf=861) 196 K/CU MM 150-450 MEAN PLATELET VOLUME (BEAKER) (test ghvu=665) 10.5 fL 9.4-12.4 NUCLEATED RED BLOOD CELLS (BEAKER) (test 0 /100 WBC 0-0 klmz=960) NEUTROPHILS RELATIVE PERCENT (BEAKER) (test 80 % gdqo=356) LYMPHOCYTES RELATIVE PERCENT (BEAKER) (test 9 % kvkv=150) MONOCYTES RELATIVE PERCENT (BEAKER) (test 9 % ntky=877) EOSINOPHILS RELATIVE PERCENT (BEAKER) (test 2 % qhth=683) BASOPHILS RELATIVE PERCENT (BEAKER) (test 0 % kgyd=573) NEUTROPHILS ABSOLUTE COUNT (BEAKER) (test 13.13 K/ L 1.78-5.38 hppr=310) LYMPHOCYTES ABSOLUTE COUNT (BEAKER) (test 1.44 K/ L 1.32-3.57 feqx=380) MONOCYTES ABSOLUTE COUNT (BEAKER) (test 1.41 K/ L 0.30-0.82 jbul=364) EOSINOPHILS ABSOLUTE COUNT (BEAKER) (test 0.29 K/ L 0.04-0.54 aayo=059) BASOPHILS ABSOLUTE COUNT (BEAKER) (test 0.06 K/ L 0.01-0.08 xdpz=988) IMMATURE GRANULOCYTES-RELATIVE PERCENT (BEAKER) 1 % 0-1 (test nbod=4963) POCT-GLUCOSE [id number] 15:24:00 Test Item Value Reference Range Comments POC-GLUCOSE METER (BEAKER) 262 mg/dL 70-110 TESTED AT [address] (test wsan=8400) [place] [address] POCT-GLUCOSE [id number] 11:47:00 Test Item Value Reference Range Comments POC-GLUCOSE METER (BEAKER) 317 mg/dL 70-110 Notified JOSE ANTONIO CAMPBELL/TESTED AT [facility] (test mbph=8749) [address] [place] [address] HEMOGLOBIN [id number] 10:02:00 Test Item Value Reference Range Comments HEMOGLOBIN A1C (BEAKER) (test xrea=467) 6.7 % 4.3-6.1 POCT-GLUCOSE [id number] 06:28:00 Test Item Value Reference Range Comments POC-GLUCOSE METER (BEAKER) 187 mg/dL 70-110 TESTED AT [address] (test jhwe=3810) [place] [address] POCT-GLUCOSE [id number] 06:28:00 Test Item Value Reference Range Comments POC-GLUCOSE METER (BEAKER) 190 mg/dL 70-110 TESTED AT [address] (test gpnh=5252) [place] [address] [id number] 05:54:00 Test Item Value Reference Range Comments PROTIME (BEAKER) (test iwca=321) 15.0 seconds 11.7-14.7 INR (BEAKER) (test vyip=340) 1.2 <=5.9 PARTIAL THROMBOPLASTIN TIME (BEAKER) (test 40.5 seconds 22.5-36.0 kewo=403) RECOMMENDED COUMADIN/WARFARIN INR THERAPY RANGESSTANDARD DOSE: 2.0 - 3.0 Includes: PROPHYLAXIS forvenous thrombosis, systemic embolization; TREATMENT for venous thrombosis and/or pulmonary embolus.HIGH RISK: Target INR is 2.5-3.5 for patients with mechanical heart valves.[id number] 05:14:00 Test Item Value Reference Range Comments PHOSPHORUS (BEAKER) (test ahbf=973) 2.8 mg/dL 2.3-4.7 [id number] 05:14:00 Test Item Value Reference Range Comments MAGNESIUM (BEAKER) (test vwqj=879) 1.8 mg/dL 1.6-2.6 BASIC METABOLIC [id number] 05:14:00 Test Item Value Reference Range Comments SODIUM (BEAKER) (test 137 meq/L 136-145 txcc=498) POTASSIUM (BEAKER) (test 4.6 meq/L 3.5-5.1 fhcj=350) CHLORIDE (BEAKER) (test 108 meq/L 98-107 bgfn=667) CO2 (BEAKER) (test 24 meq/L 22-29 jubo=177) BLOOD UREA NITROGEN 21 mg/dL 7-21 (BEAKER) (test ifkn=178) CREATININE (BEAKER) (test 1.81 mg/dL 0.57-1.25 opfb=651) GLUCOSE RANDOM (BEAKER) 145 mg/dL 70-105 (test buvf=279) CALCIUM (BEAKER) (test 8.2 mg/dL 8.4-10.2 wcst=139) EGFR (BEAKER) (test 38 mL/min/1.73 sq m ESTIMATED GFR IS NOT mehl=3334) ACCURATE CREATININE CLEARANCE IN PREDICTING GLOMERULAR FILTRATION RATE. ESTIMATED GFR IS NOT APPLICABLE FOR DIALYSIS PATIENTS. CBC W/PLT COUNT & AUTO [id number] 05:11:00 Test Item Value Reference Range Comments WHITE BLOOD CELL COUNT (BEAKER) (test lvfo=995) 15.0 K/ L 3.5-10.5 RED BLOOD CELL COUNT (BEAKER) (test bhtm=365) 2.66 M/ L 4.63-6.08 HEMOGLOBIN (BEAKER) (test rxjv=234) 8.1 GM/DL 13.7-17.5 HEMATOCRIT (BEAKER) (test rsun=363) 25.9 % 40.1-51.0 MEAN CORPUSCULAR VOLUME (BEAKER) (test dydz=255) 97.4 fL 79.0-92.2 MEAN CORPUSCULAR HEMOGLOBIN (BEAKER) (test 30.5 pg 25.7-32.2 zgna=826) MEAN CORPUSCULAR HEMOGLOBIN CONC (BEAKER) (test 31.3 GM/DL 32.3-36.5 arya=614) RED CELL DISTRIBUTION WIDTH (BEAKER) (test 13.9 % 11.6-14.4 bxys=133) PLATELET COUNT (BEAKER) (test papl=227) 160 K/CU MM 150-450 MEAN PLATELET VOLUME (BEAKER) (test ozlg=015) 10.4 fL 9.4-12.4 NUCLEATED RED BLOOD CELLS (BEAKER) (test 0 /100 WBC 0-0 tjgv=664) NEUTROPHILS RELATIVE PERCENT (BEAKER) (test 81 % phth=518) LYMPHOCYTES RELATIVE PERCENT (BEAKER) (test 8 % jgwi=083) MONOCYTES RELATIVE PERCENT (BEAKER) (test 8 % jzni=878) EOSINOPHILS RELATIVE PERCENT (BEAKER) (test 1 % nihl=350) BASOPHILS RELATIVE PERCENT (BEAKER) (test 0 % feap=517) NEUTROPHILS ABSOLUTE COUNT (BEAKER) (test 12.24 K/ L 1.78-5.38 opdq=550) LYMPHOCYTES ABSOLUTE COUNT (BEAKER) (test 1.24 K/ L 1.32-3.57 ntez=696) MONOCYTES ABSOLUTE COUNT (BEAKER) (test 1.24 K/ L 0.30-0.82 ovjt=338) EOSINOPHILS ABSOLUTE COUNT (BEAKER) (test 0.17 K/ L 0.04-0.54 uqbe=907) BASOPHILS ABSOLUTE COUNT (BEAKER) (test 0.06 K/ L 0.01-0.08 reva=849) IMMATURE GRANULOCYTES-RELATIVE PERCENT (BEAKER) 1 % 0-1 (test ajdd=7810) POCT-GLUCOSE [id number] 22:50:00 Test Item Value Reference Range Comments POC-GLUCOSE METER (BEAKER) 103 mg/dL 70-110 TESTED AT [address] (test euzd=9282) [place] [id number] BASIC METABOLIC [id number] 18:28:00 Test Item Value Reference Range Comments SODIUM (BEAKER) (test 142 meq/L 136-145 olpg=129) POTASSIUM (BEAKER) (test 4.4 meq/L 3.5-5.1 Specimen slightly zoqp=318) hemolyzed CHLORIDE (BEAKER) (test 112 meq/L 98-107 jerl=390) CO2 (BEAKER) (test 23 meq/L 22-29 opes=327) BLOOD UREA NITROGEN 24 mg/dL 7-21 (BEAKER) (test degh=486) CREATININE (BEAKER) (test 1.76 mg/dL 0.57-1.25 Specimen slightly kvxt=064) hemolyzed GLUCOSE RANDOM (BEAKER) 106 mg/dL 70-105 (test jajl=071) CALCIUM (BEAKER) (test 8.2 mg/dL 8.4-10.2 zwbm=895) EGFR (BEAKER) (test 39 mL/min/1.73 sq m ESTIMATED GFR IS NOT qfta=9917) ACCURATE CREATININE CLEARANCE IN PREDICTING GLOMERULAR FILTRATION RATE. ESTIMATED GFR IS NOT APPLICABLE FOR DIALYSIS PATIENTS. POCT-GLUCOSE [id number] 16:55:00 Test Item Value Reference Range Comments POC-GLUCOSE METER (BEAKER) 115 mg/dL 70-110 TESTED AT [address] (test qcil=2228) [place] [id number] BASIC METABOLIC [id number] 16:51:00 Test Item Value Reference Range Comments SODIUM (BEAKER) (test 141 meq/L 136-145 mydd=263) POTASSIUM (BEAKER) (test 4.2 meq/L 3.5-5.1 hbzr=427) CHLORIDE (BEAKER) (test 112 meq/L 98-107 cqti=635) CO2 (BEAKER) (test 21 meq/L 22-29 uxbg=014) BLOOD UREA NITROGEN 26 mg/dL 7-21 (BEAKER) (test tqov=613) CREATININE (BEAKER) (test 1.83 mg/dL 0.57-1.25 jwdi=139) GLUCOSE RANDOM (BEAKER) 154 mg/dL 70-105 (test rggo=160) CALCIUM (BEAKER) (test 8.2 mg/dL 8.4-10.2 cuvr=337) EGFR (BEAKER) (test 37 mL/min/1.73 sq m ESTIMATED GFR IS NOT mhhc=9421) ACCURATE CREATININE CLEARANCE IN PREDICTING GLOMERULAR FILTRATION RATE. ESTIMATED GFR IS NOT APPLICABLE FOR DIALYSIS PATIENTS. [id number] 16:51:00 Test Item Value Reference Range Comments MAGNESIUM (BEAKER) (test wrol=670) 1.8 mg/dL 1.6-2.6 [id number] 16:51:00 Test Item Value Reference Range Comments PHOSPHORUS (BEAKER) (test xmyq=113) 3.1 mg/dL 2.3-4.7 POCT-GLUCOSE [id number] 11:25:00 Test Item Value Reference Range Comments POC-GLUCOSE METER (BEAKER) 169 mg/dL 70-110 TESTED AT [address] (test fotw=8398) [facility] [address] POCT-GLUCOSE [id number] 05:30:00 Test Item Value Reference Range Comments POC-GLUCOSE METER (BEAKER) 230 mg/dL 70-110 TESTED AT [address] (test ynhe=4070) [place] [address] [id number] 04:57:00 Test Item Value Reference Range Comments PHOSPHORUS (BEAKER) (test fwlp=676) 3.0 mg/dL 2.3-4.7 [id number] 04:57:00 Test Item Value Reference Range Comments MAGNESIUM (BEAKER) (test krin=827) 2.2 mg/dL 1.6-2.6 BASIC METABOLIC [id number] 04:57:00 Test Item Value Reference Range Comments SODIUM (BEAKER) (test 138 meq/L 136-145 uikq=086) POTASSIUM (BEAKER) (test 5.0 meq/L 3.5-5.1 mxjq=449) CHLORIDE (BEAKER) (test 111 meq/L 98-107 xkol=018) CO2 (BEAKER) (test 21 meq/L 22-29 oocu=364) BLOOD UREA NITROGEN 29 mg/dL 7-21 (BEAKER) (test eltx=656) CREATININE (BEAKER) (test 2.06 mg/dL 0.57-1.25 lvrb=336) GLUCOSE RANDOM (BEAKER) 233 mg/dL 70-105 (test ciig=153) CALCIUM (BEAKER) (test 8.1 mg/dL 8.4-10.2 zlqd=301) EGFR (BEAKER) (test 33 mL/min/1.73 sq m ESTIMATED GFR IS NOT syrl=8894) ACCURATE CREATININE CLEARANCE IN PREDICTING GLOMERULAR FILTRATION RATE. ESTIMATED GFR IS NOT APPLICABLE FOR DIALYSIS PATIENTS. [id number] 04:46:00 Test Item Value Reference Range Comments PROTIME (BEAKER) (test wjvo=951) 14.7 seconds 11.7-14.7 INR (BEAKER) (test mchb=007) 1.1 <=5.9 PARTIAL THROMBOPLASTIN TIME (BEAKER) (test 34.2 seconds 22.5-36.0 ouwe=489) RECOMMENDED COUMADIN/WARFARIN INR THERAPY RANGESSTANDARD DOSE: 2.0 - 3.0 Includes: PROPHYLAXIS forvenous thrombosis, systemic embolization; TREATMENT for venous thrombosis and/or pulmonary embolus.HIGH RISK: Target INR is 2.5-3.5 for patients with mechanical heart valves.CBC W/PLT COUNT & AUTO [id number] 04:42:00 Test Item Value Reference Range Comments WHITE BLOOD CELL COUNT (BEAKER) (test sevy=815) 16.7 K/ L 3.5-10.5 RED BLOOD CELL COUNT (BEAKER) (test fhtk=193) 2.99 M/ L 4.63-6.08 HEMOGLOBIN (BEAKER) (test rjdy=783) 9.0 GM/DL 13.7-17.5 HEMATOCRIT (BEAKER) (test muwv=823) 28.3 % 40.1-51.0 MEAN CORPUSCULAR VOLUME (BEAKER) (test ynhq=005) 94.6 fL 79.0-92.2 MEAN CORPUSCULAR HEMOGLOBIN (BEAKER) (test 30.1 pg 25.7-32.2 tqwk=964) MEAN CORPUSCULAR HEMOGLOBIN CONC (BEAKER) (test 31.8 GM/DL 32.3-36.5 ouwp=391) RED CELL DISTRIBUTION WIDTH (BEAKER) (test 13.3 % 11.6-14.4 eyza=005) PLATELET COUNT (BEAKER) (test ieud=342) 176 K/CU MM 150-450 MEAN PLATELET VOLUME (BEAKER) (test hnuk=070) 10.2 fL 9.4-12.4 NUCLEATED RED BLOOD CELLS (BEAKER) (test 0 /100 WBC 0-0 jplr=345) NEUTROPHILS RELATIVE PERCENT (BEAKER) (test 89 % fbdo=631) LYMPHOCYTES RELATIVE PERCENT (BEAKER) (test 5 % jmjc=605) MONOCYTES RELATIVE PERCENT (BEAKER) (test 6 % twgg=023) EOSINOPHILS RELATIVE PERCENT (BEAKER) (test 0 % qltm=196) BASOPHILS RELATIVE PERCENT (BEAKER) (test 0 % ijjg=533) NEUTROPHILS ABSOLUTE COUNT (BEAKER) (test 14.79 K/ L 1.78-5.38 lszg=604) LYMPHOCYTES ABSOLUTE COUNT (BEAKER) (test 0.84 K/ L 1.32-3.57 panl=207) MONOCYTES ABSOLUTE COUNT (BEAKER) (test 0.97 K/ L 0.30-0.82 tgzs=119) EOSINOPHILS ABSOLUTE COUNT (BEAKER) (test 0.00 K/ L 0.04-0.54 qstc=432) BASOPHILS ABSOLUTE COUNT (BEAKER) (test 0.02 K/ L 0.01-0.08 auyv=505) IMMATURE GRANULOCYTES-RELATIVE PERCENT (BEAKER) 1 % 0-1 (test qblg=9958) RAD, ABDOMEN/KUB, 1 VIEW [id number] 04:06:00Reason for exam:->s/p ureteral stentsFINAL REPORT EXAMINATION: SUPINE ABDOMEN CLINICAL INDICATION: Ureteral stents. IMPRESSION: Patient is status post recent abdominal surgery with a vertically oriented midline incision. Multiple surgical clips are also noted within the pelvis, nonspecific but possibly reflecting lymph node dissection. Bilateral ureteral stents as well as a suspected Lorenz catheter have been placed. A large bore [...] further evaluation if warranted. Signed: Dakota Garrison MDReport Verified Date/Time: 10/2018 04:06:16 Reading Location: [address] Reading Room RAD, CHEST, 1 VIEW, NON [id number] 03:55:00Reason for exam:->postop: atelectasisShould this be performed at the bedside?->YesFINAL REPORT EXAMINATION: AP PORTABLE CHEST RADIOGRAPH CLINICAL INDICATION: Atelectasis IMPRESSION: Compared with 03/05/2018. Left-sided Port-A-Cath and midline sternotomy are again noted. The heart is mildly enlarged but stable. Previously identified bilateral pleural effusions have decreased in size and/or resolved. Overall aeration of the lung bases has also improved. Subtle streaky opacities which persist along the heart borders may reflect atelectasis. An underlying pneumonia cannot be excluded. No evidence of new lung consolidation, pulmonary edema or pneumothorax. In summary, overall improved appearance of the thorax. Signed: Dakota Garrison [facility] Verified Date/Time: 05/18/2018 03:55:44 Reading Location: [address] Reading Room Electronically signedby: DAKOTA GARRISON M.D. on 05/18/2018 03:55 AMPOCT-GLUCOSE [id number] 02:01:00 Test Item Value Reference Range Comments POC-GLUCOSE METER (BEAKER) 259 mg/dL 70-110 TESTED AT [facility] [address] [facility] (test auew=9786) [facility] [address] HEMOGLOBIN AND [id number] 01:22:00 Test Item Value Reference Range Comments HEMOGLOBIN (BEAKER) (test jtmt=763) 9.3 GM/DL 13.7-17.5 HEMATOCRIT (BEAKER) (test txww=061) 30.0 % 40.1-51.0 BASIC METABOLIC [id number] 01:09:00 Test Item Value Reference Range Comments SODIUM (BEAKER) (test 137 meq/L 136-145 pnbd=748) POTASSIUM (BEAKER) (test 5.8 meq/L 3.5-5.1 gqth=826) CHLORIDE (BEAKER) (test 111 meq/L 98-107 bjvr=596) CO2 (BEAKER) (test 19 meq/L 22-29 egks=821) BLOOD UREA NITROGEN 30 mg/dL 7-21 (BEAKER) (test tkgz=780) CREATININE (BEAKER) (test 2.19 mg/dL 0.57-1.25 tyij=671) GLUCOSE RANDOM (BEAKER) 255 mg/dL 70-105 (test qpqi=285) CALCIUM (BEAKER) (test 7.9 mg/dL 8.4-10.2 bezg=531) EGFR (BEAKER) (test 30 mL/min/1.73 sq m ESTIMATED GFR IS NOT datm=5459) ACCURATE CREATININE CLEARANCE IN PREDICTING GLOMERULAR FILTRATION RATE. ESTIMATED GFR IS NOT APPLICABLE FOR DIALYSIS PATIENTS. [id number] 01:03:00 Test Item Value Reference Range Comments MAGNESIUM (BEAKER) (test iwqn=994) 1.4 mg/dL 1.6-2.6 CALCIUM, [id number] 21:46:00 Test Item Value Reference Range Comments CALCIUM IONIZED (BEAKER) (test xuvd=750) 1.01 mmol/L 1.12-1.27 PH, BLOOD (BEAKER) (test cwbn=1344) 7.33 BLOOD GAS, [id number] 21:45:00 Test Item Value Reference Range Comments PH ARTERIAL (BEAKER) (test kxnx=057) 7.33 7.35-7.45 PCO2 ARTERIAL (BEAKER) (test jbmn=779) 40 mmHg 35-45 PO2 ARTERIAL (BEAKER) (test yqkh=433) 210 mmHg 80-90 O2 SATURATION ARTERIAL (BEAKER) (test kcvw=957) 99.3 % 96.0-97.0 HCO3 ARTERIAL (BEAKER) (test atrc=138) 21 mmol/L 21-29 BASE EXCESS ARTERIAL (BEAKER) (test hjye=490) -4.9 mmol/L -2.0-3.0 PATIENT TEMPERATURE (BEAKER) (test gsky=2164) 37.0 C FIO2 (BEAKER) (test ubls=5741) 50.0 % GLUCOSE-STAT [id number] 21:45:00 Test Item Value Reference Range Comments GLUCOSE RANDOM (BEAKER) (test cqup=773) 214 mg/dL 70-110 HGB/HCT (H&H) - STAT [id number] 21:45:00 Test Item Value Reference Range Comments HEMOGLOBIN (BEAKER) (test wtiw=973) 8.9 g/dL 13.0-16.8 HEMATOCRIT (BEAKER) (test dxhu=779) 26.0 % 40.0-50.0 SODIUM NA-STAT [id number] 21:44:00 Test Item Value Reference Range Comments SODIUM (BEAKER) (test ywyn=313) 135 meq/L 135-148 POTASSIUM-STAT [id number] 21:44:00 Test Item Value Reference Range Comments POTASSIUM (BEAKER) (test ljjm=986) 5.4 meq/L 3.6-5.5 SODIUM NA-STAT [id number] 19:34:00 Test Item Value Reference Range Comments SODIUM (BEAKER) (test qjir=093) 136 meq/L 135-148 POTASSIUM-STAT [id number] 19:34:00 Test Item Value Reference Range Comments POTASSIUM (BEAKER) (test uvfd=580) 5.3 meq/L 3.6-5.5 BLOOD GAS, [id number] 19:34:00 Test Item Value Reference Range Comments PH ARTERIAL (BEAKER) (test tcik=064) 7.31 7.35-7.45 PCO2 ARTERIAL (BEAKER) (test ifby=210) 38 mmHg 35-45 PO2 ARTERIAL (BEAKER) (test uxfx=471) 201 mmHg 80-90 O2 SATURATION ARTERIAL (BEAKER) (test mnlj=184) 99.3 % 96.0-97.0 HCO3 ARTERIAL (BEAKER) (test hbhz=957) 19 mmol/L 21-29 BASE EXCESS ARTERIAL (BEAKER) (test inty=195) -6.9 mmol/L -2.0-3.0 PATIENT TEMPERATURE (BEAKER) (test vtpr=6733) 36.4 C FIO2 (BEAKER) (test mtek=8086) 50.0 % GLUCOSE-STAT [id number] 19:34:00 Test Item Value Reference Range Comments GLUCOSE RANDOM (BEAKER) (test ewds=629) 234 mg/dL 70-110 HGB/HCT (H&H) - STAT [id number] 19:34:00 Test Item Value Reference Range Comments HEMOGLOBIN (BEAKER) (test fhvq=225) 8.9 g/dL 13.0-16.8 HEMATOCRIT (BEAKER) (test ufqc=754) 26.0 % 40.0-50.0 BLOOD GAS, [id number] 18:13:00 Test Item Value Reference Range Comments PH ARTERIAL (BEAKER) (test finy=256) 7.33 7.35-7.45 PCO2 ARTERIAL (BEAKER) (test shwy=937) 38 mmHg 35-45 PO2 ARTERIAL (BEAKER) (test umva=270) 173 mmHg 80-90 O2 SATURATION ARTERIAL (BEAKER) (test bxst=771) 99.1 % 96.0-97.0 HCO3 ARTERIAL (BEAKER) (test rblr=814) 19 mmol/L 21-29 BASE EXCESS ARTERIAL (BEAKER) (test iqic=273) -6.3 mmol/L -2.0-3.0 PATIENT TEMPERATURE (BEAKER) (test bhef=4596) 36.1 C FIO2 (BEAKER) (test ccvh=7977) 50.0 % GLUCOSE-STAT [id number] 18:13:00 Test Item Value Reference Range Comments GLUCOSE RANDOM (BEAKER) (test cdku=119) 222 mg/dL 70-110 HGB/HCT (H&H) - STAT [id number] 18:13:00 Test Item Value Reference Range Comments HEMOGLOBIN (BEAKER) (test dmcu=493) 8.9 g/dL 13.0-16.8 HEMATOCRIT (BEAKER) (test evqw=584) 26.0 % 40.0-50.0 SODIUM NA-STAT [id number] 18:12:00 Test Item Value Reference Range Comments SODIUM (BEAKER) (test kvjc=774) 136 meq/L 135-148 POTASSIUM-STAT [id number] 18:12:00 Test Item Value Reference Range Comments POTASSIUM (BEAKER) (test pwjp=602) 5.3 meq/L 3.6-5.5 BLOOD GAS, [id number] 16:28:00 Test Item Value Reference Range Comments PH ARTERIAL (BEAKER) (test itac=504) 7.36 7.35-7.45 PCO2 ARTERIAL (BEAKER) (test gpsy=031) 35 mmHg 35-45 PO2 ARTERIAL (BEAKER) (test rawo=173) 254 mmHg 80-90 O2 SATURATION ARTERIAL (BEAKER) (test kbbg=949) 99.6 % 96.0-97.0 HCO3 ARTERIAL (BEAKER) (test uvgd=588) 19 mmol/L 21-29 BASE EXCESS ARTERIAL (BEAKER) (test stgd=789) -5.6 mmol/L -2.0-3.0 PATIENT TEMPERATURE (BEAKER) (test xhre=4041) 37.0 C FIO2 (BEAKER) (test pkak=2153) 100.0 % POTASSIUM-STAT [id number] 16:28:00 Test Item Value Reference Range Comments POTASSIUM (BEAKER) (test nkvy=912) 5.7 meq/L 3.6-5.5 GLUCOSE-STAT [id number] 16:28:00 Test Item Value Reference Range Comments GLUCOSE RANDOM (BEAKER) (test gysr=361) 239 mg/dL 70-110 HGB/HCT (H&H) - STAT [id number] 16:28:00 Test Item Value Reference Range Comments HEMOGLOBIN (BEAKER) (test vgba=346) 9.2 g/dL 13.0-16.8 HEMATOCRIT (BEAKER) (test psdi=034) 27.0 % 40.0-50.0 SODIUM NA-STAT [id number] 16:25:00 Test Item Value Reference Range Comments SODIUM (BEAKER) (test mmcg=930) 137 meq/L 135-148 POTASSIUM-STAT [id number] 15:23:00 Test Item Value Reference Range Comments POTASSIUM (BEAKER) (test qhoi=144) 6.5 meq/L 3.6-5.5 POTASSIUM-STAT [id number] 15:07:00 Test Item Value Reference Range Comments POTASSIUM (BEAKER) (test ftmi=471) 6.3 meq/L 3.6-5.5 specimen not hemolyzed BLOOD GAS, [id number] 14:56:00 Test Item Value Reference Range Comments PH ARTERIAL (BEAKER) (test pdag=847) 7.33 7.35-7.45 PCO2 ARTERIAL (BEAKER) (test admo=237) 40 mmHg 35-45 PO2 ARTERIAL (BEAKER) (test rbnq=261) 246 mmHg 80-90 O2 SATURATION ARTERIAL (BEAKER) (test yfff=660) 99.5 % 96.0-97.0 HCO3 ARTERIAL (BEAKER) (test bbct=687) 21 mmol/L 21-29 BASE EXCESS ARTERIAL (BEAKER) (test chxj=921) -4.9 mmol/L -2.0-3.0 PATIENT TEMPERATURE (BEAKER) (test beak=8842) 37.0 C FIO2 (BEAKER) (test qzzl=2630) 100.0 % SODIUM NA-STAT [id number] 14:56:00 Test Item Value Reference Range Comments SODIUM (BEAKER) (test qrrd=534) 133 meq/L 135-148 GLUCOSE-STAT [id number] 14:56:00 Test Item Value Reference Range Comments GLUCOSE RANDOM (BEAKER) (test dhqf=781) 228 mg/dL 70-110 HGB/HCT (H&H) - STAT [id number] 14:55:00 Test Item Value Reference Range Comments HEMOGLOBIN (BEAKER) (test qmen=538) 10.6 g/dL 13.0-16.8 HEMATOCRIT (BEAKER) (test opem=001) 31.0 % 40.0-50.0 BLOOD GAS, [id number] 12:20:00 Test Item Value Reference Range Comments PH ARTERIAL (BEAKER) (test pplv=975) 7.39 7.35-7.45 PCO2 ARTERIAL (BEAKER) (test caqy=605) 37 mmHg 35-45 PO2 ARTERIAL (BEAKER) (test radd=768) 253 mmHg 80-90 O2 SATURATION ARTERIAL (BEAKER) (test dipi=463) 99.6 % 96.0-97.0 HCO3 ARTERIAL (BEAKER) (test tomp=755) 22 mmol/L 21-29 BASE EXCESS ARTERIAL (BEAKER) (test ayos=835) -2.5 mmol/L -2.0-3.0 PATIENT TEMPERATURE (BEAKER) (test plqp=5881) 36.0 C FIO2 (BEAKER) (test vdpc=2916) 50.0 % GLUCOSE-STAT [id number] 12:20:00 Test Item Value Reference Range Comments GLUCOSE RANDOM (BEAKER) (test iwcq=631) 162 mg/dL 70-110 HGB/HCT (H&H) - STAT [id number] 12:20:00 Test Item Value Reference Range Comments HEMOGLOBIN (BEAKER) (test eqdg=474) 11.5 g/dL 13.0-16.8 HEMATOCRIT (BEAKER) (test hxnz=117) 34.0 % 40.0-50.0 SODIUM NA-STAT [id number] 12:19:00 Test Item Value Reference Range Comments SODIUM (BEAKER) (test xcyi=900) 137 meq/L 135-148 POTASSIUM-STAT [id number] 12:19:00 Test Item Value Reference Range Comments POTASSIUM (BEAKER) (test nitw=681) 4.8 meq/L 3.6-5.5 BLOOD GAS, [id number] 10:21:00 Test Item Value Reference Range Comments PH ARTERIAL (BEAKER) (test vbmr=141) 7.40 7.35-7.45 PCO2 ARTERIAL (BEAKER) (test nxaq=893) 42 mmHg 35-45 PO2 ARTERIAL (BEAKER) (test ymik=994) 251 mmHg 80-90 O2 SATURATION ARTERIAL (BEAKER) (test ymoe=534) 99.6 % 96.0-97.0 HCO3 ARTERIAL (BEAKER) (test cidl=543) 25 mmol/L 21-29 BASE EXCESS ARTERIAL (BEAKER) (test sngz=596) 0.3 mmol/L -2.0-3.0 PATIENT TEMPERATURE (BEAKER) (test xday=8137) 37.0 C GLUCOSE-STAT [id number] 10:21:00 Test Item Value Reference Range Comments GLUCOSE RANDOM (BEAKER) (test vojp=533) 123 mg/dL 70-110 HGB/HCT (H&H) - STAT [id number] 10:21:00 Test Item Value Reference Range Comments HEMOGLOBIN (BEAKER) (test rrrm=941) 10.4 g/dL 13.0-16.8 HEMATOCRIT (BEAKER) (test qgyo=237) 31.0 % 40.0-50.0 SODIUM NA-STAT [id number] 10:20:00 Test Item Value Reference Range Comments SODIUM (BEAKER) (test wzxy=060) 138 meq/L 135-148 POTASSIUM-STAT [id number] 10:20:00 Test Item Value Reference Range Comments POTASSIUM (BEAKER) (test qiwf=905) 3.8 meq/L 3.6-5.5 [id number] 07:46:00 Test Item Value Reference Range Comments SODIUM (BEAKER) (test cymc=375) 138 meq/L 136-145 POTASSIUM (BEAKER) (test rzwx=797) 4.2 meq/L 3.5-5.1 CHLORIDE (BEAKER) (test yuoj=011) 104 meq/L 98-107 CO2 (BEAKER) (test srjm=834) 25 meq/L 22-29 POCT-GLUCOSE [id number] 07:20:00 Test Item Value Reference Range Comments POC-GLUCOSE METER (BEAKER) 155 mg/dL 70-110 TESTED AT [facility] [address] (test mqdl=2913) [facility] [address] TISSUE [id number] 16:21:00Surgical Pathology Report Case: [id number] Authorizing Provider: Ruby Jorge MD Collected: 04/26/2018 1906 Ordering Location: [facility] Received: 04/27/2018 0812 SERVICES Pathologist: Nj Charles MD Specimens: A) - Bladder Tumor, Left posterior wall B) - Bladder Tumor, Right posterior wall C) - Bladder Tumor, Posterior dome D) - Urethra,Prostatic urethra A. URINARY BLADDER , LEFT POSTERIOR, TURBT: - UROTHELIAL CARCINOMA, HIGH GRADE (WHO GRADE 3), INVASIVE INTO LAMINA PROPRIA - NEGATIVE FOR LYMPH/VASCULAR INVASION - MUSCULARIS PROPRIA IS PRESENT AND NOT INVOLVED BY TUMORB. URINARY BLADDER, RIGHT POSTERIOR, TURBT: - UROTHELIAL CARCINOMA, HIGH GRADE (WHO GRADE 3), INVASIVEINTO LAMINA PROPRIA - NEGATIVE FOR LYMPH/VASCULAR INVASION - MUSCULARIS PROPRIA IS PRESENT AND NOT INVOLVED BY TUMORC. URINARY BLADDER, POSTERIOR DOME , TURBT: - UROTHELIAL CARCINOMA,HIGH GRADE (WHO GRADE 3), INVASIVE INTO LAMINA PROPRIA - NEGATIVE FOR LYMPH/VASCULAR INVASION - MUSCULARIS PROPRIA IS PRESENT AND NOT INVOLVED BY TUMORD. PROSTATIC URETHRA, BIOPSY: - UROTHELIAL CARCINOMA IN SITU IN DETACHED FRAGMENT (SEE COMMENT) - PROSTATIC TISSUE, NO PATHOLOGIC DIAGNOSIS Signing Pathologist Direct Phone Line: [phone] signed by Nj Charles MD on2018 at 4:21 PMThe small portion of tissue with carcinoma in situ is not definitely from the prostate and may be a carrry-over from specimens A-C. The clearly identified prostate does not contain urothelial CIS.13522 x3, 50657Mucoyqnwr neoplasm of overlapping sites of bladder A. Left posterior bladder wall tumor. B. Right posterior wall bladder tumor. C. Posterior dome bladder tumor. D. Prostatic urethraThe case is received in four parts labeled with the patient's name (Devin Arrieta) andaccession number ([id number]) parts A through D, which corresponds to the accompanying requisition slip labeled with the same name and accession number.Part A. Received fresh labeled with the patient's name (Devin Arrieta) and information and "left posterior wall bladder tumor" are multiple fragments ofpink to brown partially cauterized tissue fragments weighing 1.64 gm and measuring 1.2 x 0.7 x 0.3 cm in aggregate. The fragments are submitted entirely in cassettes A1 and A2.Part B. Received labeled with the patient's name and information and "right posterior wall bladder tumor" are multiple red, brown tissue fragments that are partially cauterized weighing 2.50 gm, 1.2 x 1.3 x 0.3 cm in aggregate.The fragments are submitted entirely in cassettes B1 and B2.Part C. Received labeled with the patient's name and information and "posterior dome bladder tumor" are multiple zhong-pink to pink-brown partially cauterized fragments weighing 2.25 gm, 1.5 x 1.5 x 0.3 cm in aggregate. The specimen is submitted entirely in cassettes C1 and C2.Part D. Received labeled with the patient's name and information and "prostatic urethra" are multiple zhong-white to zhong-pink partially cauterized fragments weighing 2.2 gm, 0.8 x 0.5 x 0.3 cm in aggregate. The specimen is submitted entirely in cassette D1. SB/Raymundo-D: Performed.POCT-GLUCOSE [id number] 12:54:00 Test Item Value Reference Range Comments POC-GLUCOSE METER (BEAKER) 222 mg/dL 70-110 TESTED AT [address] (test djup=4189) [facility] [address] POCT-GLUCOSE [id number] 07:58:00 Test Item Value Reference Range Comments POC-GLUCOSE METER (BEAKER) 134 mg/dL 70-110 TESTED AT [address] (test kkxd=7800) [facility] [address] POCT-GLUCOSE [id number] 21:29:00 Test Item Value Reference Range Comments POC-GLUCOSE METER (BEAKER) 122 mg/dL 70-110 TESTED AT [address] (test kbqi=0220) [place] [address] POCT-GLUCOSE [id number] 14:04:00 Test Item Value Reference Range Comments POC-GLUCOSE METER (BEAKER) 164 mg/dL 70-110 TESTED AT [address] (test yzfk=7369) [place] [id number] POCT-GLUCOSE [id number] 14:15:00 Test Item Value Reference Range Comments POC-GLUCOSE METER (BEAKER) 230 mg/dL 70-110 TESTED AT [address] (test rasv=4071) [place] [address] URINE [id number] 13:01:00 Test Item Value Reference Range Comments CULTURE (BEAKER) (test mlew=5883) No growth POCT-GLUCOSE [id number] 08:30:00 Test Item Value Reference Range Comments POC-GLUCOSE METER (BEAKER) 100 mg/dL 70-110 TESTED AT [address] (test jwwz=8118) [place] [address] [id number] 06:11:00 Test Item Value Reference Range Comments PHOSPHORUS (BEAKER) (test rcmc=935) 3.5 mg/dL 2.3-4.7 [id number] 06:11:00 Test Item Value Reference Range Comments MAGNESIUM (BEAKER) (test fllq=491) 1.5 mg/dL 1.6-2.6 BASIC METABOLIC [id number] 06:11:00 Test Item Value Reference Range Comments SODIUM (BEAKER) (test 139 meq/L 136-145 nnsr=254) POTASSIUM (BEAKER) (test 3.7 meq/L 3.5-5.1 urzf=715) CHLORIDE (BEAKER) (test 101 meq/L 98-107 golo=373) CO2 (BEAKER) (test 31 meq/L 22-29 ejvo=528) BLOOD UREA NITROGEN 26 mg/dL 7-21 (BEAKER) (test fvxd=650) CREATININE (BEAKER) (test 1.46 mg/dL 0.57-1.25 fvra=267) GLUCOSE RANDOM (BEAKER) 66 mg/dL 70-105 (test ssvx=122) CALCIUM (BEAKER) (test 9.2 mg/dL 8.4-10.2 bjwj=133) EGFR (BEAKER) (test 48 mL/min/1.73 sq m ESTIMATED GFR IS NOT dfii=4610) ACCURATE CREATININE CLEARANCE IN PREDICTING GLOMERULAR FILTRATION RATE. ESTIMATED GFR IS NOT APPLICABLE FOR DIALYSIS PATIENTS. CBC W/PLT COUNT & AUTO [id number] 05:56:00 Test Item Value Reference Range Comments WHITE BLOOD CELL COUNT (BEAKER) (test vssn=519) 7.8 K/ L 3.5-10.5 RED BLOOD CELL COUNT (BEAKER) (test urkz=748) 3.13 M/ L 4.63-6.08 HEMOGLOBIN (BEAKER) (test xndq=720) 9.8 GM/DL 13.7-17.5 HEMATOCRIT (BEAKER) (test xnzs=268) 29.7 % 40.1-51.0 MEAN CORPUSCULAR VOLUME (BEAKER) (test zxea=575) 94.9 fL 79.0-92.2 MEAN CORPUSCULAR HEMOGLOBIN (BEAKER) (test 31.3 pg 25.7-32.2 dmbh=229) MEAN CORPUSCULAR HEMOGLOBIN CONC (BEAKER) (test 33.0 GM/DL 32.3-36.5 zuld=033) RED CELL DISTRIBUTION WIDTH (BEAKER) (test 14.7 % 11.6-14.4 bqdq=964) PLATELET COUNT (BEAKER) (test yuiy=802) 202 K/CU MM 150-450 MEAN PLATELET VOLUME (BEAKER) (test mxxz=065) 10.0 fL 9.4-12.4 NUCLEATED RED BLOOD CELLS (BEAKER) (test 0 /100 WBC 0-0 jtqw=233) NEUTROPHILS RELATIVE PERCENT (BEAKER) (test 51 % bodt=474) LYMPHOCYTES RELATIVE PERCENT (BEAKER) (test 23 % pebd=731) MONOCYTES RELATIVE PERCENT (BEAKER) (test 9 % mhrl=494) EOSINOPHILS RELATIVE PERCENT (BEAKER) (test 16 % ncap=860) BASOPHILS RELATIVE PERCENT (BEAKER) (test 1 % rxwt=641) NEUTROPHILS ABSOLUTE COUNT (BEAKER) (test 3.98 K/ L 1.78-5.38 lszz=113) LYMPHOCYTES ABSOLUTE COUNT (BEAKER) (test 1.81 K/ L 1.32-3.57 kqhb=329) MONOCYTES ABSOLUTE COUNT (BEAKER) (test 0.71 K/ L 0.30-0.82 neda=233) EOSINOPHILS ABSOLUTE COUNT (BEAKER) (test 1.21 K/ L 0.04-0.54 elkm=212) BASOPHILS ABSOLUTE COUNT (BEAKER) (test 0.04 K/ L 0.01-0.08 fnyl=048) IMMATURE GRANULOCYTES-RELATIVE PERCENT (BEAKER) 1 % 0-1 (test wijh=1119) POCT-GLUCOSE [id number] 21:57:00 Test Item Value Reference Range Comments POC-GLUCOSE METER (BEAKER) 150 mg/dL 70-110 TESTED AT [address] (test kpxo=3192) [place] [id number] POCT-GLUCOSE [id number] 18:45:00 Test Item Value Reference Range Comments POC-GLUCOSE METER (BEAKER) 167 mg/dL 70-110 TESTED AT [address] (test yhzc=0410) [place] [address] POCT-GLUCOSE [id number] 14:24:00 Test Item Value Reference Range Comments POC-GLUCOSE METER (BEAKER) 138 mg/dL 70-110 TESTED AT [address] (test jewy=0586) [place] [address] POCT-GLUCOSE [id number] 12:38:00 Test Item Value Reference Range Comments POC-GLUCOSE METER (BEAKER) 163 mg/dL 70-110 TESTED AT [address] (test ekxe=1197) [place] [address] POCT-GLUCOSE [id number] 09:18:00 Test Item Value Reference Range Comments POC-GLUCOSE METER (BEAKER) 307 mg/dL 70-110 TESTED AT [address] (test dsfr=7942) [place] [address] [id number] 06:09:00 Test Item Value Reference Range Comments PHOSPHORUS (BEAKER) (test tlhj=079) 2.9 mg/dL 2.3-4.7 [id number] 06:09:00 Test Item Value Reference Range Comments MAGNESIUM (BEAKER) (test bhug=041) 2.0 mg/dL 1.6-2.6 BASIC METABOLIC [id number] 06:09:00 Test Item Value Reference Range Comments SODIUM (BEAKER) (test 140 meq/L 136-145 uwrb=886) POTASSIUM (BEAKER) (test 3.9 meq/L 3.5-5.1 meeq=629) CHLORIDE (BEAKER) (test 101 meq/L 98-107 yich=485) CO2 (BEAKER) (test 33 meq/L 22-29 izge=858) BLOOD UREA NITROGEN 25 mg/dL 7-21 (BEAKER) (test xfgm=735) CREATININE (BEAKER) (test 1.47 mg/dL 0.57-1.25 vhub=988) GLUCOSE RANDOM (BEAKER) 119 mg/dL 70-105 (test ankj=981) CALCIUM (BEAKER) (test 9.0 mg/dL 8.4-10.2 awco=596) EGFR (BEAKER) (test 48 mL/min/1.73 sq m ESTIMATED GFR IS NOT yeza=5811) ACCURATE CREATININE CLEARANCE IN PREDICTING GLOMERULAR FILTRATION RATE. ESTIMATED GFR IS NOT APPLICABLE FOR DIALYSIS PATIENTS. CBC W/PLT COUNT & AUTO [id number] 05:46:00 Test Item Value Reference Range Comments WHITE BLOOD CELL COUNT (BEAKER) (test xgym=101) 7.2 K/ L 3.5-10.5 RED BLOOD CELL COUNT (BEAKER) (test shzl=967) 3.09 M/ L 4.63-6.08 HEMOGLOBIN (BEAKER) (test evky=077) 9.7 GM/DL 13.7-17.5 HEMATOCRIT (BEAKER) (test mzhx=591) 29.9 % 40.1-51.0 MEAN CORPUSCULAR VOLUME (BEAKER) (test gthc=440) 96.8 fL 79.0-92.2 MEAN CORPUSCULAR HEMOGLOBIN (BEAKER) (test 31.4 pg 25.7-32.2 gvuc=350) MEAN CORPUSCULAR HEMOGLOBIN CONC (BEAKER) (test 32.4 GM/DL 32.3-36.5 wrxc=307) RED CELL DISTRIBUTION WIDTH (BEAKER) (test 14.9 % 11.6-14.4 rbck=195) PLATELET COUNT (BEAKER) (test fwew=277) 148 K/CU MM 150-450 MEAN PLATELET VOLUME (BEAKER) (test gfmh=963) 10.1 fL 9.4-12.4 NUCLEATED RED BLOOD CELLS (BEAKER) (test 0 /100 WBC 0-0 xdvf=165) NEUTROPHILS RELATIVE PERCENT (BEAKER) (test 60 % hmch=490) LYMPHOCYTES RELATIVE PERCENT (BEAKER) (test 17 % eykn=553) MONOCYTES RELATIVE PERCENT (BEAKER) (test 9 % veoh=475) EOSINOPHILS RELATIVE PERCENT (BEAKER) (test 14 % zjun=141) BASOPHILS RELATIVE PERCENT (BEAKER) (test 0 % ahxd=702) NEUTROPHILS ABSOLUTE COUNT (BEAKER) (test 4.33 K/ L 1.78-5.38 ezen=288) LYMPHOCYTES ABSOLUTE COUNT (BEAKER) (test 1.19 K/ L 1.32-3.57 kpgs=130) MONOCYTES ABSOLUTE COUNT (BEAKER) (test 0.64 K/ L 0.30-0.82 zoor=651) EOSINOPHILS ABSOLUTE COUNT (BEAKER) (test 0.98 K/ L 0.04-0.54 jmmp=144) BASOPHILS ABSOLUTE COUNT (BEAKER) (test 0.03 K/ L 0.01-0.08 wkis=219) IMMATURE GRANULOCYTES-RELATIVE PERCENT (BEAKER) 1 % 0-1 (test mxlf=9118) POCT-GLUCOSE [id number] 22:56:00 Test Item Value Reference Range Comments POC-GLUCOSE METER (BEAKER) 181 mg/dL 70-110 TESTED AT [address] (test sine=1731) [place] [address] POCT-GLUCOSE [id number] 18:20:00 Test Item Value Reference Range Comments POC-GLUCOSE METER (BEAKER) 209 mg/dL 70-110 TESTED AT [address] (test kjxt=0194) [place] [address] POCT-GLUCOSE [id number] 12:58:00 Test Item Value Reference Range Comments POC-GLUCOSE METER (BEAKER) 216 mg/dL 70-110 TESTED AT [address] (test ohtp=2918) [place] [address] URINALYSIS W/ [id number] 12:10:00 Test Item Value Reference Range Comments COLOR (BEAKER) (test gccw=379) Dark [place] CLARITY (BEAKER) (test qdin=042) Clear SPECIFIC GRAVITY UA (BEAKER) (test ezdb=340) 1.007 1.001-1.035 PH UA (BEAKER) (test dpko=987) 5.5 5.0-8.0 PROTEIN UA (BEAKER) (test mlxv=926) 10 mg/dL Negative GLUCOSE UA (BEAKER) (test ajmo=605) 500 mg/dL Negative KETONES UA (BEAKER) (test begl=876) Negative Negative BILIRUBIN UA (BEAKER) (test hzcj=621) Negative Negative BLOOD UA (BEAKER) (test fndd=493) Trace Negative NITRITE UA (BEAKER) (test zoez=880) Negative Negative LEUKOCYTE ESTERASE UA (BEAKER) (test uexe=357) Negative Negative UROBILINOGEN UA (BEAKER) (test wfep=416) 0.2 mg/dL 0.2-1.0 RBC UA (BEAKER) (test zehu=011) 3 /HPF WBC UA (BEAKER) (test gtjm=688) 3 /HPF MUCUS (BEAKER) (test pgri=7245) Rare HYALINE CASTS (BEAKER) (test xuao=034) 5 /LPF SOURCE(BEAKER) (test fqhl=0946) Urine, Lorenz POCT-GLUCOSE [id number] 07:27:00 Test Item Value Reference Range Comments POC-GLUCOSE METER (BEAKER) 194 mg/dL 70-110 TESTED AT [facility] [address] [facility] (test lfsa=2654) [facility] [address] [id number] 05:03:00 Test Item Value Reference Range Comments MAGNESIUM (BEAKER) (test iikq=819) 1.4 mg/dL 1.6-2.6 BASIC METABOLIC [id number] 05:03:00 Test Item Value Reference Range Comments SODIUM (BEAKER) (test 136 meq/L 136-145 drri=602) POTASSIUM (BEAKER) (test 3.7 meq/L 3.5-5.1 ijpl=373) CHLORIDE (BEAKER) (test 100 meq/L 98-107 tjod=917) CO2 (BEAKER) (test 30 meq/L 22-29 kgbj=227) BLOOD UREA NITROGEN 25 mg/dL 7-21 (BEAKER) (test ddwn=922) CREATININE (BEAKER) (test 1.53 mg/dL 0.57-1.25 hrhl=389) GLUCOSE RANDOM (BEAKER) 136 mg/dL 70-105 (test lxoo=841) CALCIUM (BEAKER) (test 8.9 mg/dL 8.4-10.2 uggy=145) EGFR (BEAKER) (test 46 mL/min/1.73 sq m ESTIMATED GFR IS NOT wpmr=7314) ACCURATE CREATININE CLEARANCE IN PREDICTING GLOMERULAR FILTRATION RATE. ESTIMATED GFR IS NOT APPLICABLE FOR DIALYSIS PATIENTS. [id number] 05:02:00 Test Item Value Reference Range Comments PHOSPHORUS (BEAKER) (test irlf=183) 2.4 mg/dL 2.3-4.7 CBC W/PLT COUNT & AUTO [id number] 04:37:00 Test Item Value Reference Range Comments WHITE BLOOD CELL COUNT (BEAKER) (test rshg=369) 8.6 K/ L 3.5-10.5 RED BLOOD CELL COUNT (BEAKER) (test zfew=478) 3.14 M/ L 4.63-6.08 HEMOGLOBIN (BEAKER) (test ijzc=070) 9.8 GM/DL 13.7-17.5 HEMATOCRIT (BEAKER) (test kjli=554) 30.6 % 40.1-51.0 MEAN CORPUSCULAR VOLUME (BEAKER) (test cozt=768) 97.5 fL 79.0-92.2 MEAN CORPUSCULAR HEMOGLOBIN (BEAKER) (test 31.2 pg 25.7-32.2 ykte=191) MEAN CORPUSCULAR HEMOGLOBIN CONC (BEAKER) (test 32.0 GM/DL 32.3-36.5 tjqe=369) RED CELL DISTRIBUTION WIDTH (BEAKER) (test 15.6 % 11.6-14.4 zwpp=130) PLATELET COUNT (BEAKER) (test rpxb=856) 124 K/CU MM 150-450 MEAN PLATELET VOLUME (BEAKER) (test zumv=966) 10.6 fL 9.4-12.4 NUCLEATED RED BLOOD CELLS (BEAKER) (test 0 /100 WBC 0-0 viqi=416) NEUTROPHILS RELATIVE PERCENT (BEAKER) (test 67 % tlkb=668) LYMPHOCYTES RELATIVE PERCENT (BEAKER) (test 16 % dqbm=768) MONOCYTES RELATIVE PERCENT (BEAKER) (test 10 % nwww=690) EOSINOPHILS RELATIVE PERCENT (BEAKER) (test 6 % zsav=711) BASOPHILS RELATIVE PERCENT (BEAKER) (test 0 % sohw=301) NEUTROPHILS ABSOLUTE COUNT (BEAKER) (test 5.79 K/ L 1.78-5.38 mirc=853) LYMPHOCYTES ABSOLUTE COUNT (BEAKER) (test 1.37 K/ L 1.32-3.57 umcj=114) MONOCYTES ABSOLUTE COUNT (BEAKER) (test 0.83 K/ L 0.30-0.82 fkdi=085) EOSINOPHILS ABSOLUTE COUNT (BEAKER) (test 0.53 K/ L 0.04-0.54 piep=198) BASOPHILS ABSOLUTE COUNT (BEAKER) (test 0.03 K/ L 0.01-0.08 sizb=396) IMMATURE GRANULOCYTES-RELATIVE PERCENT (BEAKER) 1 % 0-1 (test joqz=8001) POCT-GLUCOSE [id number] 22:50:00 Test Item Value Reference Range Comments POC-GLUCOSE METER (BEAKER) 222 mg/dL 70-110 TESTED AT [address] (test makq=8837) [facility] [address] POCT-GLUCOSE [id number] 22:46:00 Test Item Value Reference Range Comments POC-GLUCOSE METER (BEAKER) 254 mg/dL 70-110 TESTED AT [address] (test fbhh=5175) [place] [id number] POCT-GLUCOSE [id number] 17:56:00 Test Item Value Reference Range Comments POC-GLUCOSE METER (BEAKER) 212 mg/dL 70-110 TESTED AT [address] (test crpc=4730) [facility] [address] POCT-GLUCOSE [id number] 12:32:00 Test Item Value Reference Range Comments POC-GLUCOSE METER (BEAKER) 293 mg/dL 70-110 TESTED AT [address] (test qvmp=7761) [facility] [address] POCT-GLUCOSE [id number] 07:52:00 Test Item Value Reference Range Comments POC-GLUCOSE METER (BEAKER) 215 mg/dL 70-110 TESTED AT [address] (test lcyx=8942) [facility] [address] BASIC METABOLIC [id number] 07:00:00 Test Item Value Reference Range Comments SODIUM (BEAKER) (test 138 meq/L 136-145 fyni=383) POTASSIUM (BEAKER) (test 4.1 meq/L 3.5-5.1 knqm=157) CHLORIDE (BEAKER) (test 105 meq/L 98-107 pwvg=629) CO2 (BEAKER) (test 28 meq/L 22-29 pjpu=452) BLOOD UREA NITROGEN 27 mg/dL 7-21 (BEAKER) (test gupa=486) CREATININE (BEAKER) (test 1.58 mg/dL 0.57-1.25 dszt=586) GLUCOSE RANDOM (BEAKER) 179 mg/dL 70-105 (test haeh=994) CALCIUM (BEAKER) (test 8.6 mg/dL 8.4-10.2 scfe=116) EGFR (BEAKER) (test 44 mL/min/1.73 sq m ESTIMATED GFR IS NOT kpbp=7247) ACCURATE CREATININE CLEARANCE IN PREDICTING GLOMERULAR FILTRATION RATE. ESTIMATED GFR IS NOT APPLICABLE FOR DIALYSIS PATIENTS. CBC (HEMOGRAM ONLY)2018-03-06 06:40:00 Test Item Value Reference Range Comments WHITE BLOOD CELL COUNT 11.0 K/ L 3.5-10.5 (BEAKER) (test snlr=276) RED BLOOD CELL COUNT (BEAKER) 2.95 M/ L 4.63-6.08 (test pzmi=455) HEMOGLOBIN (BEAKER) (test 9.4 GM/DL 13.7-17.5 csdy=461) HEMATOCRIT (BEAKER) (test 29.0 % 40.1-51.0 dwof=755) MEAN CORPUSCULAR VOLUME 98.3 fL 79.0-92.2 DISCORDANT MCV RESULT (BEAKER) (test yndf=760) COMPARED TO PREVIOUS RESULT; CLINICAL CORRELATION REQUIRED. MEAN CORPUSCULAR HEMOGLOBIN 31.9 pg 25.7-32.2 (BEAKER) (test bvbi=438) MEAN CORPUSCULAR HEMOGLOBIN 32.4 GM/DL 32.3-36.5 CONC (BEAKER) (test pgwn=544) RED CELL DISTRIBUTION WIDTH 16.1 % 11.6-14.4 (BEAKER) (test yyly=521) PLATELET COUNT (BEAKER) (test 95 K/CU MM 150-450 cwjl=069) MEAN PLATELET VOLUME (BEAKER) 10.6 fL 9.4-12.4 (test gasc=845) NUCLEATED RED BLOOD CELLS 0 /100 WBC 0-0 (BEAKER) (test wjip=881) POCT-GLUCOSE [id number] 00:36:00 Test Item Value Reference Range Comments POC-GLUCOSE METER (BEAKER) 273 mg/dL 70-110 TESTED AT [facility] [address] [facility] (test ojfm=5268) [place] [address] RAD, CHEST, 1 VIEW, NON [id number] 13:27:00Reason for exam:->post- opShould this be performed at the bedside?->YesFINAL REPORT Clinical History: Postoperative Comparison Study: March 04, 2018 Findings: The cardiac silhouette is enlarged. Sternotomy wires are seen with a left-sided Port-A-Cath. The remaining support lines and tubes have been removed. Atelectatic changes are seen in the lung bases. Minimal costophrenic angle blunting is seen. No significant bony or soft tissue abnormalities are seen. Impression: Removal of support lines and tubes with atelectatic changes in the lung bases and minimal costophrenic angle blunting. Signed: Rakesh Leiva MDReport Verified Date/Time: 03/05/2018 13:27:11 Reading Location: [facility] C013W Consult Reading Room [id number] 06:58:00 Test Item Value Reference Range Comments PHOSPHORUS (BEAKER) (test advf=530) 3.6 mg/dL 2.3-4.7 [id number] 06:58:00 Test Item Value Reference Range Comments MAGNESIUM (BEAKER) (test hnez=727) 1.5 mg/dL 1.6-2.6 BASIC METABOLIC [id number] 06:58:00 Test Item Value Reference Range Comments SODIUM (BEAKER) (test 137 meq/L 136-145 lbfn=532) POTASSIUM (BEAKER) (test 4.2 meq/L 3.5-5.1 rxyi=299) CHLORIDE (BEAKER) (test 109 meq/L 98-107 wzoz=252) CO2 (BEAKER) (test 27 meq/L 22-29 vrtt=510) BLOOD UREA NITROGEN 28 mg/dL 7-21 (BEAKER) (test gcvy=990) CREATININE (BEAKER) (test 1.81 mg/dL 0.57-1.25 rfmi=826) GLUCOSE RANDOM (BEAKER) 118 mg/dL 70-105 (test mstp=475) CALCIUM (BEAKER) (test 8.3 mg/dL 8.4-10.2 iyka=916) EGFR (BEAKER) (test 38 mL/min/1.73 sq m ESTIMATED GFR IS NOT qlxc=0422) ACCURATE CREATININE CLEARANCE IN PREDICTING GLOMERULAR FILTRATION RATE. ESTIMATED GFR IS NOT APPLICABLE FOR DIALYSIS PATIENTS. CBC (HEMOGRAM ONLY)2018-03-05 06:46:00 Test Item Value Reference Range Comments WHITE BLOOD CELL COUNT (BEAKER) (test efvg=252) 11.6 K/ L 3.5-10.5 RED BLOOD CELL COUNT (BEAKER) (test gzce=843) 3.10 M/ L 4.63-6.08 HEMOGLOBIN (BEAKER) (test xkwh=458) 9.8 GM/DL 13.7-17.5 HEMATOCRIT (BEAKER) (test npmb=994) 31.7 % 40.1-51.0 MEAN CORPUSCULAR VOLUME (BEAKER) (test usuo=808) 102.3 fL 79.0-92.2 MEAN CORPUSCULAR HEMOGLOBIN (BEAKER) (test 31.6 pg 25.7-32.2 cibf=667) MEAN CORPUSCULAR HEMOGLOBIN CONC (BEAKER) (test 30.9 GM/DL 32.3-36.5 bjdk=171) RED CELL DISTRIBUTION WIDTH (BEAKER) (test 16.9 % 11.6-14.4 dnro=832) PLATELET COUNT (BEAKER) (test jfmk=123) 87 K/CU MM 150-450 MEAN PLATELET VOLUME (BEAKER) (test tpqe=271) 10.5 fL 9.4-12.4 NUCLEATED RED BLOOD CELLS (BEAKER) (test 0 /100 WBC 0-0 ycmx=319) POCT-GLUCOSE [id number] 23:12:00 Test Item Value Reference Range Comments POC-GLUCOSE METER (BEAKER) 85 mg/dL 70-110 TESTED AT [address] (test lqbl=1207) [facility] [address] POCT-GLUCOSE [id number] 16:31:00 Test Item Value Reference Range Comments POC-GLUCOSE METER (BEAKER) 192 mg/dL 70-110 TESTED AT [address] (test rdyy=1721) [facility] [address] POCT-GLUCOSE [id number] 12:05:00 Test Item Value Reference Range Comments POC-GLUCOSE METER (BEAKER) 110 mg/dL 70-110 TESTED AT [address] (test vmpt=1961) [facility] [address] POCT-GLUCOSE [id number] 10:51:00 Test Item Value Reference Range Comments POC-GLUCOSE METER (BEAKER) 115 mg/dL 70-110 TESTED AT [address] (test muyj=2975) [place] [id number] 09:19:00 Test Item Value Reference Range Comments ACTIVATED CLOTTING TIME 103 sec TESTED AT [address] ([facility]) (test yixu=225) [place] [address] [id number] 09:19:00 Test Item Value Reference Range Comments ACTIVATED CLOTTING TIME 654 sec TESTED AT [address] ([facility]) (test mpnn=958) [place] [address] [id number] 09:19:00 Test Item Value Reference Range Comments ACTIVATED CLOTTING TIME 428 sec TESTED AT [address] ([facility]) (test bwbu=113) [place] [address] [id number] 09:19:00 Test Item Value Reference Range Comments ACTIVATED CLOTTING TIME 400 sec TESTED AT [address] ([facility]) (test imlf=051) [place] [address] POCT-GLUCOSE [id number] 08:54:00 Test Item Value Reference Range Comments POC-GLUCOSE METER ([facility]) 117 mg/dL 70-110 TESTED AT [address] (test basu=1133) [facility] [address] RAD, CHEST, 1 VIEW, NON [id number] 07:03:00while patient is intubated or has chest tubes.Reason for exam:->Status post CV SurgeryShould thisbe performed at the bedside?->YesFINAL REPORT RAD, CHEST , 1 VIEW, NON DEPT INDICATION: Status post CV Surgery COMPARISON: Exam 10 hours prior FINDINGS: Portable frontal view of the chest. IMPRESSION: Support Lines : ET tube has been removed. Right IJ catheter and left-sided Port-A-Cath are unchanged in position. Bilateral chest tubes are unchanged.Lungs and pleura: Linear atelectasis within the lower lobes. No pneumothorax.Heart and mediastinum : Stable contours. Stable surgical changes.Additional findings: None. Signed: Sin Fryeort Verified Date/Time: 03/04/2018 07:03:18 Reading Location: [facility] C013V Neuro Reading Room POCT-GLUCOSE [id number] 06:56: 00 Test Item Value Reference Range Comments POC-GLUCOSE METER (BEAKER) 130 mg/dL 70-110 TESTED AT [facility] [address] [facility] (test ljik=5859) [facility] [address] [id number] 03:30:00 Test Item Value Reference Range Comments PHOSPHORUS (BEAKER) (test ymvy=013) 4.4 mg/dL 2.3-4.7 [id number] 03:30:00 Test Item Value Reference Range Comments MAGNESIUM (BEAKER) (test ncqv=714) 2.2 mg/dL 1.6-2.6 BASIC METABOLIC [id number] 03:30:00 Test Item Value Reference Range Comments SODIUM (BEAKER) (test 142 meq/L 136-145 kyme=382) POTASSIUM (BEAKER) (test 4.4 meq/L 3.5-5.1 ntqa=162) CHLORIDE (BEAKER) (test 114 meq/L 98-107 aupx=452) CO2 (BEAKER) (test 21 meq/L 22-29 zyrj=735) BLOOD UREA NITROGEN 34 mg/dL 7-21 (BEAKER) (test imgl=032) CREATININE (BEAKER) (test 2.11 mg/dL 0.57-1.25 eqcx=503) GLUCOSE RANDOM (BEAKER) 127 mg/dL 70-105 (test euag=793) CALCIUM (BEAKER) (test 8.5 mg/dL 8.4-10.2 rzjr=840) EGFR (BEAKER) (test 32 mL/min/1.73 sq m ESTIMATED GFR IS NOT lnpo=8237) ACCURATE CREATININE CLEARANCE IN PREDICTING GLOMERULAR FILTRATION RATE. ESTIMATED GFR IS NOT APPLICABLE FOR DIALYSIS PATIENTS. POCT-GLUCOSE [id number] 03:23:00 Test Item Value Reference Range Comments POC-GLUCOSE METER (BEAKER) 134 mg/dL 70-110 TESTED AT [facility] [address] [facility] (test evuw=8986) [facility] [address] CBC (HEMOGRAM ONLY)2018-03-04 03:10:00 Test Item Value Reference Range Comments WHITE BLOOD CELL COUNT (BEAKER) (test fbme=221) 10.8 K/ L 3.5-10.5 RED BLOOD CELL COUNT (BEAKER) (test wmyz=056) 3.03 M/ L 4.63-6.08 HEMOGLOBIN (BEAKER) (test bkck=548) 9.5 GM/DL 13.7-17.5 HEMATOCRIT (BEAKER) (test xgoq=389) 29.9 % 40.1-51.0 MEAN CORPUSCULAR VOLUME (BEAKER) (test nnex=878) 98.7 fL 79.0-92.2 MEAN CORPUSCULAR HEMOGLOBIN (BEAKER) (test 31.4 pg 25.7-32.2 vzqn=449) MEAN CORPUSCULAR HEMOGLOBIN CONC (BEAKER) (test 31.8 GM/DL 32.3-36.5 ncpe=498) RED CELL DISTRIBUTION WIDTH (BEAKER) (test 17.8 % 11.6-14.4 jhhj=807) PLATELET COUNT (BEAKER) (test dbyy=177) 95 K/CU MM 150-450 MEAN PLATELET VOLUME (BEAKER) (test oekg=780) 10.0 fL 9.4-12.4 NUCLEATED RED BLOOD CELLS (BEAKER) (test 0 /100 WBC 0-0 fzkc=553) POCT-GLUCOSE [id number] 01:24:00 Test Item Value Reference Range Comments POC-GLUCOSE METER (BEAKER) 135 mg/dL 70-110 TESTED AT [address] (test utie=3913) [place] [address] POCT-GLUCOSE [id number] 23:13:00 Test Item Value Reference Range Comments POC-GLUCOSE METER (BEAKER) 141 mg/dL 70-110 TESTED AT [address] (test tnpk=4041) [place] [address] POCT-GLUCOSE [id number] 23:13:00 Test Item Value Reference Range Comments POC-GLUCOSE METER (BEAKER) 145 mg/dL 70-110 TESTED AT [address] (test zokh=7164) [place] [address] BLOOD GAS, [id number] 23:00:00 Test Item Value Reference Range Comments PH ARTERIAL (BEAKER) (test htyy=009) 7.41 7.35-7.45 PCO2 ARTERIAL (BEAKER) (test ihhl=639) 37 mmHg 35-45 PO2 ARTERIAL (BEAKER) (test fkck=684) 154 mmHg 80-90 O2 SATURATION ARTERIAL (BEAKER) (test itqv=954) 99.0 % 96.0-97.0 HCO3 ARTERIAL (BEAKER) (test xexk=966) 23 mmol/L 21-29 BASE EXCESS ARTERIAL (BEAKER) (test rqqr=902) -1.4 mmol/L -2.0-3.0 PATIENT TEMPERATURE (BEAKER) (test gzoe=7452) 37.0 C FIO2 (BEAKER) (test iikn=0922) 36.0 % POCT-GLUCOSE [id number] 21:39:00 Test Item Value Reference Range Comments POC-GLUCOSE METER (BEAKER) 160 mg/dL 70-110 TESTED AT [address] (test aatb=4306) [place] [id number] POCT-GLUCOSE [id number] 21:39:00 Test Item Value Reference Range Comments POC-GLUCOSE METER (BEAKER) 169 mg/dL 70-110 TESTED AT [address] (test bwvc=8991) [place] [id number] 21:03:00 Test Item Value Reference Range Comments MAGNESIUM (BEAKER) (test 1.8 mg/dL 1.6-2.6 Specimen slightly hemolyzed dzef=305) Check Serum Magnesium level 2 hours after IV magnesium replacement.BLOOD GAS, [id number] 20:47:00 Test Item Value Reference Range Comments PH ARTERIAL (BEAKER) (test tafq=796) 7.34 7.35-7.45 PCO2 ARTERIAL (BEAKER) (test ngqc=488) 46 mmHg 35-45 PO2 ARTERIAL (BEAKER) (test gozm=620) 141 mmHg 80-90 O2 SATURATION ARTERIAL (BEAKER) (test puze=407) 98.7 % 96.0-97.0 HCO3 ARTERIAL (BEAKER) (test uasv=132) 24 mmol/L 21-29 BASE EXCESS ARTERIAL (BEAKER) (test dini=061) -1.5 mmol/L -2.0-3.0 PATIENT TEMPERATURE (BEAKER) (test zgfq=1673) 37.0 C FIO2 (BEAKER) (test uspx=0712) 40.0 % HGB/HCT (H&H) - STAT [id number] 20:47:00 Test Item Value Reference Range Comments HEMOGLOBIN (BEAKER) (test pork=192) 8.9 g/dL 13.0-16.8 HEMATOCRIT (BEAKER) (test wayk=265) 26.0 % 40.0-50.0 CALCIUM, [id number] 20:47:00 Test Item Value Reference Range Comments CALCIUM IONIZED (BEAKER) (test fnnb=346) 1.10 mmol/L 1.12-1.27 PH, BLOOD (BEAKER) (test yziw=6392) 7.34 BASIC METABOLIC [id number] 19:55:00 Test Item Value Reference Range Comments SODIUM (BEAKER) (test 141 meq/L 136-145 jybl=544) POTASSIUM (BEAKER) (test 4.5 meq/L 3.5-5.1 fljz=420) CHLORIDE (BEAKER) (test 111 meq/L 98-107 pntc=952) CO2 (BEAKER) (test 23 meq/L 22-29 jbxy=174) BLOOD UREA NITROGEN 38 mg/dL 7-21 (BEAKER) (test kebz=903) CREATININE (BEAKER) (test 2.16 mg/dL 0.57-1.25 dzjr=018) GLUCOSE RANDOM (BEAKER) 145 mg/dL 70-105 (test eyaf=234) CALCIUM (BEAKER) (test 8.3 mg/dL 8.4-10.2 qgas=446) EGFR (BEAKER) (test 31 mL/min/1.73 sq m ESTIMATED GFR IS NOT uiya=8963) ACCURATE CREATININE CLEARANCE IN PREDICTING GLOMERULAR FILTRATION RATE. ESTIMATED GFR IS NOT APPLICABLE FOR DIALYSIS PATIENTS. RAD, CHEST, 1 VIEW, NON [id number] 17:05:00Reason for exam:->immediate post opShould this be performed at the bedside?->YesFINAL REPORT Chest, one view. HISTORY: Immediate postoperative COMPARISON: Radiograph from 02/23/2018 IMPRESSION: Interval insertion of bilateral chest tubes and a mediastinal drain. An endotracheal tube is 6.7 cm above the howie. A right IJ central venous catheter has its tipover the lower SVC. No pleural effusion or pneumothorax. Mild bibasilar subsegmental atelectasis. The cardiac silhouette is normal. Recent median sternotomy. Signed: Dejon Kirkpatrick MDReport Verified Date/Time: 03/03/2018 17:05:01 Reading Location: [facility] C013W Consult Reading Room 05 :05 [id number] 16:14:00 Test Item Value Reference Range Comments PHOSPHORUS (BEAKER) (test dbqz=384) 3.8 mg/dL 2.3-4.7 [id number] 16:14:00 Test Item Value Reference Range Comments MAGNESIUM (BEAKER) (test lnjr=171) 1.5 mg/dL 1.6-2.6 BASIC METABOLIC [id number] 16:14:00 Test Item Value Reference Range Comments SODIUM (BEAKER) (test 137 meq/L 136-145 nqms=247) POTASSIUM (BEAKER) (test 5.3 meq/L 3.5-5.1 wojm=698) CHLORIDE (BEAKER) (test 108 meq/L 98-107 tula=728) CO2 (BEAKER) (test 22 meq/L 22-29 syhp=136) BLOOD UREA NITROGEN 38 mg/dL 7-21 (BEAKER) (test fmjv=525) CREATININE (BEAKER) (test 2.04 mg/dL 0.57-1.25 kpou=699) GLUCOSE RANDOM (BEAKER) 207 mg/dL 70-105 (test pmkg=689) CALCIUM (BEAKER) (test 8.7 mg/dL 8.4-10.2 nnsq=468) EGFR (BEAKER) (test 33 mL/min/1.73 sq m ESTIMATED GFR IS NOT knar=7684) ACCURATE CREATININE CLEARANCE IN PREDICTING GLOMERULAR FILTRATION RATE. ESTIMATED GFR IS NOT APPLICABLE FOR DIALYSIS PATIENTS. LACTIC ACID, ARTERIAL, WHOLE [id number] 16:11:00 Test Item Value Reference Range Comments LACTATE BLOOD ARTERIAL (2) (BEAKER) (test 1.0 mmol/L 0.5-2.2 njgf=8820) [id number] 16:08:00 Test Item Value Reference Range Comments FIBRINOGEN LEVEL (BEAKER) (test znzz=311) 294 mg/dl 225-434 [id number] 16:08:00 Test Item Value Reference Range Comments PARTIAL THROMBOPLASTIN TIME (BEAKER) (test 27.5 seconds 22.5-36.0 abbd=149) PROTHROMBIN [id number] 16:07:00 Test Item Value Reference Range Comments PROTIME (BEAKER) (test dsbh=468) 16.6 seconds 11.7-14.7 INR (BEAKER) (test ebvj=877) 1.3 <=5.9 RECOMMENDED COUMADIN/WARFARIN INR THERAPY RANGESSTANDARD DOSE: 2.0 - 3.0 Includes: PROPHYLAXIS forvenous thrombosis, systemic embolization; TREATMENT for venous thrombosis and/or pulmonary embolus.HIGH RISK: Target INR is 2.5-3.5 for patients with mechanical heart valves.CBC W/PLT COUNT & AUTO [id number] 16:02:00 Test Item Value Reference Range Comments WHITE BLOOD CELL COUNT (BEAKER) (test zpcz=122) 8.6 K/ L 3.5-10.5 RED BLOOD CELL COUNT (BEAKER) (test fywl=428) 3.33 M/ L 4.63-6.08 HEMOGLOBIN (BEAKER) (test funy=464) 10.7 GM/DL 13.7-17.5 HEMATOCRIT (BEAKER) (test pvfp=496) 32.3 % 40.1-51.0 MEAN CORPUSCULAR VOLUME (BEAKER) (test kqai=457) 97.0 fL 79.0-92.2 MEAN CORPUSCULAR HEMOGLOBIN (BEAKER) (test 32.1 pg 25.7-32.2 dabi=925) MEAN CORPUSCULAR HEMOGLOBIN CONC (BEAKER) (test 33.1 GM/DL 32.3-36.5 dhtz=566) RED CELL DISTRIBUTION WIDTH (BEAKER) (test 16.7 % 11.6-14.4 opda=850) PLATELET COUNT (BEAKER) (test ayxg=129) 97 K/CU MM 150-450 MEAN PLATELET VOLUME (BEAKER) (test htjg=295) 9.9 fL 9.4-12.4 NUCLEATED RED BLOOD CELLS (BEAKER) (test 0 /100 WBC 0-0 cenr=636) NEUTROPHILS RELATIVE PERCENT (BEAKER) (test 87 % elbz=421) LYMPHOCYTES RELATIVE PERCENT (BEAKER) (test 3 % zbfw=311) MONOCYTES RELATIVE PERCENT (BEAKER) (test 1 % ktmo=783) EOSINOPHILS RELATIVE PERCENT (BEAKER) (test 7 % pons=092) BASOPHILS RELATIVE PERCENT (BEAKER) (test 0 % gsbv=288) NEUTROPHILS ABSOLUTE COUNT (BEAKER) (test 7.45 K/ L 1.78-5.38 memf=361) LYMPHOCYTES ABSOLUTE COUNT (BEAKER) (test 0.28 K/ L 1.32-3.57 fdbo=801) MONOCYTES ABSOLUTE COUNT (BEAKER) (test xxsh=808) 0.05 K/ L 0.30-0.82 EOSINOPHILS ABSOLUTE COUNT (BEAKER) (test 0.63 K/ L 0.04-0.54 chxo=946) BASOPHILS ABSOLUTE COUNT (BEAKER) (test trmu=191) 0.02 K/ L 0.01-0.08 IMMATURE GRANULOCYTES-RELATIVE PERCENT (BEAKER) 2 % 0-1 (test onwl=0009) OXYGEN SATURATION, [id number] 16:01:00 Test Item Value Reference Range Comments O2 SATURATION (MEASURED) (BEAKER) (test rmyl=7633) 72.2 % BLOOD GAS, [id number] 16:00:00 Test Item Value Reference Range Comments PH ARTERIAL (BEAKER) (test hgwl=459) 7.40 7.35-7.45 PCO2 ARTERIAL (BEAKER) (test tgat=665) 38 mmHg 35-45 PO2 ARTERIAL (BEAKER) (test ldhr=960) 190 mmHg 80-90 O2 SATURATION ARTERIAL (BEAKER) (test qztj=736) 99.3 % 96.0-97.0 HCO3 ARTERIAL (BEAKER) (test kdbh=357) 24 mmol/L 21-29 BASE EXCESS ARTERIAL (BEAKER) (test jzsy=515) -1.5 mmol/L -2.0-3.0 PATIENT TEMPERATURE (BEAKER) (test rsbz=0227) 35.4 C FIO2 (BEAKER) (test hncd=7411) 60.0 % SODIUM NA-STAT [id number] 16:00:00 Test Item Value Reference Range Comments SODIUM (BEAKER) (test lghx=408) 134 meq/L 135-148 GLUCOSE-STAT [id number] 16:00:00 Test Item Value Reference Range Comments GLUCOSE RANDOM (BEAKER) (test pcbp=338) 204 mg/dL 70-110 HGB/HCT (H&H) - STAT [id number] 16:00:00 Test Item Value Reference Range Comments HEMOGLOBIN (BEAKER) (test iztf=379) 10.1 g/dL 13.0-16.8 HEMATOCRIT (BEAKER) (test sagu=260) 30.0 % 40.0-50.0 CALCIUM, [id number] 16:00:00 Test Item Value Reference Range Comments CALCIUM IONIZED (BEAKER) (test yooy=521) 1.14 mmol/L 1.12-1.27 PH, BLOOD (BEAKER) (test zfpw=7225) 7.40 POTASSIUM-STAT [id number] 15:58:00 Test Item Value Reference Range Comments POTASSIUM (BEAKER) (test deqr=841) 5.1 meq/L 3.6-5.5 THROMBOELASTOGRAPH (TEG)2018-03-03 15:16:00 Test Item Value Reference Range Comments TEG ACTIVATED CLOTTING TIME (BEAKER) (test 6.8 minutes 4.0-7.0 zmsh=9986) TEG FIBRINOGEN ACTIVITY (BEAKER) (test 59.6 degrees 61.0-73.0 flwt=2460) TEG PLT. AGGREGATION (BEAKER) (test iqif=5019) 51.0 MM 55.0-65.0 TGH ACTIVATED CLOTTING TIME (BEAKER) (test 7.5 minutes 4.0-7.0 lptm=9324) TGH FIBRINOGEN ACTIVITY (BEAKER) (test 60.6 degrees 61.0-73.0 cjzb=0759) TGH PLT. AGGREGATION (BEAKER) (test sriz=2661) 46.7 MM 55.0-65.0 PROTHROMBIN [id number] 14:54:00 Test Item Value Reference Range Comments PROTIME (BEAKER) (test hefl=470) 19.1 seconds 11.7-14.7 INR (BEAKER) (test jdzr=794) 1.6 <=5.9 RECOMMENDED COUMADIN/WARFARIN INR THERAPY RANGESSTANDARD DOSE: 2.0 - 3.0 Includes: PROPHYLAXIS forvenous thrombosis, systemic embolization; TREATMENT for venous thrombosis and/or pulmonary embolus.HIGH RISK: Target INR is 2.5-3.5 for patients with mechanical heart valves.[id number] 14:54:00 Test Item Value Reference Range Comments PARTIAL THROMBOPLASTIN TIME (BEAKER) (test 29.2 seconds 22.5-36.0 bzei=899) [id number] 14:54:00 Test Item Value Reference Range Comments FIBRINOGEN LEVEL (BEAKER) (test clrx=199) 237 mg/dl 225-434 PLATELET [id number] 14:37:00 Test Item Value Reference Range Comments PLATELET COUNT (BEAKER) (test jkat=968) 61 K/CU MM 150-450 CALCIUM, [id number] 14:26:00 Test Item Value Reference Range Comments CALCIUM IONIZED (BEAKER) (test bysn=682) 1.13 mmol/L 1.12-1.27 PH, BLOOD (BEAKER) (test gdiz=0344) 7.39 BLOOD GAS, [id number] 14:26:00 Test Item Value Reference Range Comments PH ARTERIAL (BEAKER) (test jxrz=283) 7.40 7.35-7.45 PCO2 ARTERIAL (BEAKER) (test feyn=782) 41 mmHg 35-45 PO2 ARTERIAL (BEAKER) (test tnzi=386) 406 mmHg 80-90 O2 SATURATION ARTERIAL (BEAKER) (test pvzh=273) 99.8 % 96.0-97.0 HCO3 ARTERIAL (BEAKER) (test haty=192) 25 mmol/L 21-29 BASE EXCESS ARTERIAL (BEAKER) (test khcm=557) 0.1 mmol/L -2.0-3.0 PATIENT TEMPERATURE (BEAKER) (test zqfq=9053) 36.0 C FIO2 (BEAKER) (test iqyq=7581) 88.0 % SODIUM NA-STAT [id number] 14:26:00 Test Item Value Reference Range Comments SODIUM (BEAKER) (test vhfu=014) 132 meq/L 135-148 POTASSIUM-STAT [id number] 14:26:00 Test Item Value Reference Range Comments POTASSIUM (BEAKER) (test fnnw=337) 5.8 meq/L 3.6-5.5 GLUCOSE-STAT [id number] 14:26:00 Test Item Value Reference Range Comments GLUCOSE RANDOM (BEAKER) (test qggz=714) 224 mg/dL 70-110 HGB/HCT (H&H) - STAT [id number] 14:26:00 Test Item Value Reference Range Comments HEMOGLOBIN (BEAKER) (test uzmm=698) 8.6 g/dL 13.0-16.8 HEMATOCRIT (BEAKER) (test jcjt=167) 25.0 % 40.0-50.0 BLOOD GAS, [id number] 13:50:00 Test Item Value Reference Range Comments PH ARTERIAL (BEAKER) (test vvij=791) 7.45 7.35-7.45 PCO2 ARTERIAL (BEAKER) (test vtwa=783) 35 mmHg 35-45 PO2 ARTERIAL (BEAKER) (test ilkr=813) 346 mmHg 80-90 O2 SATURATION ARTERIAL (BEAKER) (test dlub=367) 99.8 % 96.0-97.0 HCO3 ARTERIAL (BEAKER) (test lvwk=998) 24 mmol/L 21-29 BASE EXCESS ARTERIAL (BEAKER) (test acea=526) -0.2 mmol/L -2.0-3.0 PATIENT TEMPERATURE (BEAKER) (test cddi=7717) 34.5 C FIO2 (BEAKER) (test fiij=3118) 70.0 % SODIUM NA-STAT [id number] 13:50:00 Test Item Value Reference Range Comments SODIUM (BEAKER) (test umet=370) 131 meq/L 135-148 POTASSIUM-STAT [id number] 13:50:00 Test Item Value Reference Range Comments POTASSIUM (BEAKER) (test utsw=195) 5.6 meq/L 3.6-5.5 GLUCOSE-STAT [id number] 13:50:00 Test Item Value Reference Range Comments GLUCOSE RANDOM (BEAKER) (test sbeu=230) 177 mg/dL 70-110 HGB/HCT (H&H) - STAT [id number] 13:50:00 Test Item Value Reference Range Comments HEMOGLOBIN (BEAKER) (test faew=297) 8.2 g/dL 13.0-16.8 HEMATOCRIT (BEAKER) (test shrp=060) 24.0 % 40.0-50.0 BLOOD GAS, [id number] 13:36:00 Test Item Value Reference Range Comments PH ARTERIAL (BEAKER) (test paed=498) 7.32 7.35-7.45 PCO2 ARTERIAL (BEAKER) (test qilh=300) 45 mmHg 35-45 PO2 ARTERIAL (BEAKER) (test fkzb=900) 373 mmHg 80-90 O2 SATURATION ARTERIAL (BEAKER) (test wwmv=906) 99.8 % 96.0-97.0 HCO3 ARTERIAL (BEAKER) (test pykt=106) 25 mmol/L 21-29 BASE EXCESS ARTERIAL (BEAKER) (test dhzn=468) -3.0 mmol/L -2.0-3.0 PATIENT TEMPERATURE (BEAKER) (test pzez=3275) 30.1 C FIO2 (BEAKER) (test pjev=7591) 75.0 % SODIUM NA-STAT [id number] 13:36:00 Test Item Value Reference Range Comments SODIUM (BEAKER) (test rzag=705) 132 meq/L 135-148 GLUCOSE-STAT [id number] 13:36:00 Test Item Value Reference Range Comments GLUCOSE RANDOM (BEAKER) (test fehe=706) 170 mg/dL 70-110 HGB/HCT (H&H) - STAT [id number] 13:36:00 Test Item Value Reference Range Comments HEMOGLOBIN (BEAKER) (test xtst=444) 7.1 g/dL 13.0-16.8 HEMATOCRIT (BEAKER) (test ikgs=216) 21.0 % 40.0-50.0 POTASSIUM-STAT [id number] 13:35:00 Test Item Value Reference Range Comments POTASSIUM (BEAKER) (test iktf=672) 4.5 meq/L 3.6-5.5 CALCIUM, [id number] 12:57:00 Test Item Value Reference Range Comments CALCIUM IONIZED (BEAKER) (test nplz=251) 1.12 mmol/L 1.12-1.27 PH, BLOOD (BEAKER) (test sbnn=0887) 7.37 SODIUM NA-STAT [id number] 12:57:00 Test Item Value Reference Range Comments SODIUM (BEAKER) (test rdql=877) 136 meq/L 135-148 POTASSIUM-STAT [id number] 12:57:00 Test Item Value Reference Range Comments POTASSIUM (BEAKER) (test wvlc=879) 4.2 meq/L 3.6-5.5 BLOOD GAS, [id number] 12:57:00 Test Item Value Reference Range Comments PH ARTERIAL (BEAKER) (test lzlf=686) 7.38 7.35-7.45 PCO2 ARTERIAL (BEAKER) (test cqak=715) 39 mmHg 35-45 PO2 ARTERIAL (BEAKER) (test wgsa=354) 517 mmHg 80-90 O2 SATURATION ARTERIAL (BEAKER) (test zfsd=704) 99.9 % 96.0-97.0 HCO3 ARTERIAL (BEAKER) (test ppmr=324) 23 mmol/L 21-29 BASE EXCESS ARTERIAL (BEAKER) (test hcjq=836) -2.5 mmol/L -2.0-3.0 PATIENT TEMPERATURE (BEAKER) (test llfa=7190) 36.5 C FIO2 (BEAKER) (test gazn=4572) 100.0 % GLUCOSE-STAT [id number] 12:57:00 Test Item Value Reference Range Comments GLUCOSE RANDOM (BEAKER) (test klzd=885) 112 mg/dL 70-110 HGB/HCT (H&H) - STAT [id number] 12:57:00 Test Item Value Reference Range Comments HEMOGLOBIN (BEAKER) (test rgbc=722) 8.1 g/dL 13.0-16.8 HEMATOCRIT (BEAKER) (test ojfd=334) 24.0 % 40.0-50.0 POTASSIUM-STAT [id number] 10:19:00 Test Item Value Reference Range Comments POTASSIUM (BEAKER) (test oytm=338) 4.0 meq/L 3.6-5.5 RAD, CHEST, 2 [id number] 15:56:00FINAL REPORT Chest x-ray, PA and lateral views Clinical History: No admission diagnoses are documented for this encounter. Comparison: None Findings: The cardiac and mediastinal contours are normal. There is a left Port-A-Cath, tip projects over the right atrium. There is no pneumothorax, aubree pulmonary edema, consolidation or pleural effusion. The bony structures are unremarkable. Impression: No acute process identified. Signed: Rain Bains Verified Date /Time: 02/23/2018 15:56:49 Reading Location: [facility] C013W Consult Reading Room HEMOGLOBIN [id number] 15:10:00 Test Item Value Reference Range Comments HEMOGLOBIN A1C (BEAKER) (test ffdj=826) 3.9 % 4.3-6.1 COMPREHENSIVE METABOLIC [id number] 14:26:00 Test Item Value Reference Range Comments TOTAL PROTEIN (BEAKER) 6.1 gm/dL 6.0-8.3 (test ztbz=865) ALBUMIN (BEAKER) (test 3.7 g/dL 3.5-5.0 prvm=6102) ALKALINE PHOSPHATASE 60 U/L 40-150 (BEAKER) (test tpko=558) BILIRUBIN TOTAL (BEAKER) 0.5 mg/dL 0.2-1.2 (test aznb=445) SODIUM (BEAKER) (test 137 meq/L 136-145 xjlk=643) POTASSIUM (BEAKER) (test 5.8 meq/L 3.5-5.1 bkan=734) CHLORIDE (BEAKER) (test 109 meq/L 98-107 jpkm=701) CO2 (BEAKER) (test 22 meq/L 22-29 nzig=671) BLOOD UREA NITROGEN 26 mg/dL 7-21 (BEAKER) (test jrxd=398) CREATININE (BEAKER) (test 2.33 mg/dL 0.57-1.25 hjky=313) GLUCOSE RANDOM (BEAKER) 152 mg/dL 70-105 (test arnz=541) CALCIUM (BEAKER) (test 8.9 mg/dL 8.4-10.2 ajeq=181) AST (SGOT) (BEAKER) (test 12 U/L 5-34 kyhu=733) ALT (SGPT) (BEAKER) (test 13 U/L 6-55 gzve=679) EGFR (BEAKER) (test 28 mL/min/1.73 sq m ESTIMATED GFR IS NOT xtcs=3353) ACCURATE CREATININE CLEARANCE IN PREDICTING GLOMERULAR FILTRATION RATE. ESTIMATED GFR IS NOT APPLICABLE FOR DIALYSIS PATIENTS. LIPID [id number] 14:23:00 Test Item Value Reference Range Comments TRIGLYCERIDES (BEAKER) (test lzdd=016) 208 mg/dL CHOLESTEROL (BEAKER) (test nhgo=171) 113 mg/dL HDL CHOLESTEROL (BEAKER) (test afvk=429) 26 mg/dL LDL CHOLESTEROL CALCULATED (BEAKER) (test 45 mg/dL vhds=010) Triglyceride Reference Range: Low Risk <150 Borderline 150- 199 High Risk 200-499 Very High Risk >=500Cholesterol Reference Range: Low Risk <200 Borderline 200-239 High Risk > 240HDL Cholesterol Reference Range: Low Risk >=60 High Risk <40LDL Cholesterol Reference Range: Optimal <100 Near Optimal 100-129 Borderline 130-159 High 160-189 Very High >=[id number] 14:23:00 Test Item Value Reference Range Comments MAGNESIUM (BEAKER) (test rebr=186) 1.2 mg/dL 1.6-2.6 CBC W/PLT COUNT & AUTO [id number] 14:16:00 Test Item Value Reference Range Comments WHITE BLOOD CELL COUNT (BEAKER) (test vuzc=761) 8.7 K/ L 3.5-10.5 RED BLOOD CELL COUNT (BEAKER) (test nsrn=730) 2.45 M/ L 4.63-6.08 HEMOGLOBIN (BEAKER) (test faty=968) 8.3 GM/DL 13.7-17.5 HEMATOCRIT (BEAKER) (test ebad=895) 26.5 % 40.1-51.0 MEAN CORPUSCULAR VOLUME (BEAKER) (test kabk=220) 108.2 fL 79.0-92.2 MEAN CORPUSCULAR HEMOGLOBIN (BEAKER) (test 33.9 pg 25.7-32.2 bgab=897) MEAN CORPUSCULAR HEMOGLOBIN CONC (BEAKER) (test 31.3 GM/DL 32.3-36.5 iscz=445) RED CELL DISTRIBUTION WIDTH (BEAKER) (test 12.1 % 11.6-14.4 dgwf=392) PLATELET COUNT (BEAKER) (test tzru=789) 172 K/CU MM 150-450 MEAN PLATELET VOLUME (BEAKER) (test suvt=176) 10.1 fL 9.4-12.4 NUCLEATED RED BLOOD CELLS (BEAKER) (test 0 /100 WBC 0-0 dwtt=545) NEUTROPHILS RELATIVE PERCENT (BEAKER) (test 68 % oovh=866) LYMPHOCYTES RELATIVE PERCENT (BEAKER) (test 19 % ikje=144) MONOCYTES RELATIVE PERCENT (BEAKER) (test 7 % epph=965) EOSINOPHILS RELATIVE PERCENT (BEAKER) (test 5 % loqm=649) BASOPHILS RELATIVE PERCENT (BEAKER) (test 0 % asyr=880) NEUTROPHILS ABSOLUTE COUNT (BEAKER) (test 5.96 K/ L 1.78-5.38 ufkc=793) LYMPHOCYTES ABSOLUTE COUNT (BEAKER) (test 1.68 K/ L 1.32-3.57 oapw=129) MONOCYTES ABSOLUTE COUNT (BEAKER) (test 0.64 K/ L 0.30-0.82 bkhy=107) EOSINOPHILS ABSOLUTE COUNT (BEAKER) (test 0.40 K/ L 0.04-0.54 cbka=661) BASOPHILS ABSOLUTE COUNT (BEAKER) (test 0.03 K/ L 0.01-0.08 uhlb=466) IMMATURE GRANULOCYTES-RELATIVE PERCENT (BEAKER) 0 % 0-1 (test rxto=8547) [id number] 14:02:00 Test Item Value Reference Range Comments PARTIAL THROMBOPLASTIN TIME (BEAKER) (test 33.3 seconds 22.5-36.0 vfpj=036) PROTHROMBIN TIME/[id number] 14:01:00 Test Item Value Reference Range Comments PROTIME (BEAKER) (test puyg=278) 13.6 seconds 11.7-14.7 INR (BEAKER) (test lnic=777) 1.0 <=5.9 RECOMMENDED COUMADIN/WARFARIN INR THERAPY RANGESSTANDARD DOSE: 2.0 - 3.0 Includes: PROPHYLAXIS forvenous thrombosis, systemic embolization; TREATMENT for venous thrombosis and/or pulmonary embolus.HIGH RISK: Target INR is 2.5-3.5 for patients with mechanical heart valves.PET/CT, WHOLE BODY [id number] 09:27: 00Reason for exam:->Malignant neoplasm of urinary bladderFINAL REPORT EXAMINATION: FDG-PET/CT, 09/09/2017 1:12 PM CLINICAL HISTORY: Newly diagnosed invasive bladder carcinoma.INDICATION: FDG-PET /CT is obtained for initial treatment evaluation.COMPARISON: No prior PET or CT studies are available for comparison. TECHNIQUE:Radiopharmaceutical: F-18 FluorodeoxyglucoseAdministered activity: 11.6] mCiRoute of administration: Intravenously via the right antecubital veinLocalization time: 60 minutesScan extent: Vertex of the skull tothe feetAdditional imaging: NoneSerum blood glucose: 220CPT Code: 43461 FINDINGS:Head and Neck: There is no david hypermetabolism along the cervical chains. Tracer uptake in the head and neck mucosa isnormal and symmetric. The brain is normal in appearance on CT scanning , and tracer uptake in the cerebral cortex [...] ureterectasis. Scattered curvilinear regions of radiotracer activity areseen throughout the abdomen, the majority of which localizes to normal-appearing loops of bowel on the coacquired CT scan. There is , however, a segmental focus of intense tracer [...] are identified. IMPRESSION: 1. Diffuse bladder wall thickening.This is consistent with known bladder carcinoma, although [...] Signed: Arlet Frye Verified Date/Time: 09/14/2017 09:27:48 Electronicallysigned by: ARLET FRYE MD on 09/14/2017 09:27 AMPOCT-GLUCOSE [id number] 13:41:00 Test Item Value Reference Range Comments POC-GLUCOSE METER (BEAKER) 220 mg/dL 70-110 TESTED AT [facility] [address] (test moxy=4872) [facility] [address] TISSUE [id number] 16:03:00Surgical Pathology Report Case: [id number] Authorizing Provider: Ruby Jorge MD Collected: 08/19/2017 1830 Ordering Location: [facility] Received: 08/20/2017 0843 SERVICES Pathologist: Nj [...] PROSTATIC DUCTS Signing Pathologist Direct Phone Line: [phone] signed by Nj Charles MD on 08/21/2017 at 4:03 PMThere is a focus of invasive urothelial carcinoma on one of the chips fromthe prostate specimen. However, this piece show muscularis propria of the bladder wall and, therefore, represents a contaminating chip from one of the other tumor resections.A. 73399Z. 04007Y. 27116Cjwcnczjt neoplasm of urinary bladderA. Left posterior wall [...] aggregate, submitted entirely in C1. CG/ew PerformedPOCT-GLUCOSE [id number] 18:21:00 Test Item Value Reference Range Comments POC-GLUCOSE METER (BEAKER) 178 mg/dL 70-110 TESTED AT [facility] [address] [facility] (test aosv=6444) [facility] [address] POCT-GLUCOSE [id number] 17:31:00 Test Item Value Reference Range Comments POC-GLUCOSE METER (BEAKER) 67 mg/dL 70-110 TESTED AT [facility] [address] [facility] (test murx=4603) [facility] [address] BASIC METABOLIC [id number] 11:25:00 Test Item Value Reference Range Comments SODIUM (BEAKER) (test 140 meq/L 136-145 szzu=334) POTASSIUM (BEAKER) (test 4.0 meq/L 3.5-5.1 ctrd=422) CHLORIDE (BEAKER) (test 106 meq/L 98-107 zbns=988) CO2 (BEAKER) (test 25 meq/L 22-29 dsgx=840) BLOOD UREA NITROGEN 23 mg/dL 7-21 (BEAKER) (test pxfa=827) CREATININE (BEAKER) (test 1.53 mg/dL 0.57-1.25 evej=791) GLUCOSE RANDOM (BEAKER) 103 mg/dL 70-105 (test enjn=047) CALCIUM (BEAKER) (test 9.4 mg/dL 8.4-10.2 kapu=329) EGFR (BEAKER) (test 46 mL/min/1.73 sq m ESTIMATED GFR IS NOT jyyy=5792) ACCURATE CREATININE CLEARANCE IN PREDICTING GLOMERULAR FILTRATION RATE. ESTIMATED GFR IS NOT APPLICABLE FOR DIALYSIS PATIENTS. CBC W/PLT COUNT & AUTO [id number] 11:10:00 Test Item Value Reference Range Comments WHITE BLOOD CELL COUNT (BEAKER) (test cuqz=432) 8.6 K/ L 3.5-10.5 RED BLOOD CELL COUNT (BEAKER) (test xkdx=536) 3.51 M/ L 4.63-6.08 HEMOGLOBIN (BEAKER) (test mbtj=572) 7.2 GM/DL 13.7-17.5 HEMATOCRIT (BEAKER) (test uyji=683) 26.5 % 40.1-51.0 MEAN CORPUSCULAR VOLUME (BEAKER) (test doyz=220) 75.5 fL 79.0-92.2 MEAN CORPUSCULAR HEMOGLOBIN (BEAKER) (test 20.5 pg 25.7-32.2 kylq=605) MEAN CORPUSCULAR HEMOGLOBIN CONC (BEAKER) (test 27.2 GM/DL 32.3-36.5 jwnf=945) RED CELL DISTRIBUTION WIDTH (BEAKER) (test 18.4 % 11.6-14.4 yxks=442) PLATELET COUNT (BEAKER) (test pdje=261) 357 K/CU MM 150-450 MEAN PLATELET VOLUME (BEAKER) (test caqa=476) 10.0 fL 9.4-12.4 NUCLEATED RED BLOOD CELLS (BEAKER) (test 0 /100 WBC 0-0 zzdx=689) NEUTROPHILS RELATIVE PERCENT (BEAKER) (test 70 % hwzh=851) LYMPHOCYTES RELATIVE PERCENT (BEAKER) (test 19 % zffi=191) MONOCYTES RELATIVE PERCENT (BEAKER) (test 9 % xmas=451) EOSINOPHILS RELATIVE PERCENT (BEAKER) (test 2 % eifo=744) BASOPHILS RELATIVE PERCENT (BEAKER) (test 1 % yism=783) NEUTROPHILS ABSOLUTE COUNT (BEAKER) (test 5.98 K/ L 1.78-5.38 soou=956) LYMPHOCYTES ABSOLUTE COUNT (BEAKER) (test 1.60 K/ L 1.32-3.57 jful=688) MONOCYTES ABSOLUTE COUNT (BEAKER) (test 0.75 K/ L 0.30-0.82 tfdj=680) EOSINOPHILS ABSOLUTE COUNT (BEAKER) (test 0.14 K/ L 0.04-0.54 gfyt=285) BASOPHILS ABSOLUTE COUNT (BEAKER) (test 0.06 K/ L 0.01-0.08 adue=020) IMMATURE GRANULOCYTES-RELATIVE PERCENT (BEAKER) 1 % 0-1 (test wmwr=2288) POCT-GLUCOSE [id number] 10:38:00 Test Item Value Reference Range Comments POC-GLUCOSE METER (BEAKER) 118 mg/dL 70-110 TESTED AT [facility] [address] [facility] (test peug=1959) [facility] [address]
--- OUTSIDE RECORDS SUMMARY | 2018-09-28 10:51 | XMS REPORT ---
[...] Medications Results No Known Results Summary Purpose eClinicalKorbit Submission
--- OUTSIDE RECORDS SUMMARY | 2018-09-28 10:52 | XMS REPORT ---
[...] Medications Results No Known Results Summary Purpose eClinicalOnCorps Submission
--- OUTSIDE RECORDS SUMMARY | 2018-09-28 10:52 | XMS REPORT ---
[...] Medications Results No Known Results Summary Purpose eClinicalTravelShark Submission
--- OUTSIDE RECORDS SUMMARY | 2018-09-28 10:52 | XMS REPORT ---
[...] Medications Results No Known Results Summary Purpose eClinicalBeThereRewards Submission
--- OUTSIDE RECORDS SUMMARY | 2018-09-28 10:52 | XMS REPORT ---
[...] Status Dosage System Date Date Ferrous Sulfate [facility] 15146313715 325 (65 Fe) MG Active 1 tablet Orally twice a day Januvia [facility] 84852704371 100 Active TAKE 1 TABLET BY MOUTH DAILY Tamsulosin HCl [facility] [address]-42 0.4 BID Active TAKE 1 CAPSULES BY MOUTH ONCE A DAY Lovastatin [facility] 83666581362 20 Active TAKE 1 TABLET BY MOUTH DAILY Lisinopril [facility] 98990779953 2.5 MG Orally Inactive 1 tablet Once a day Dexilant [facility] 66955824363 60 MG Orally Inactive 1 capsule Once a day Amiloride-[place] [facility] 53662287578 5-50 MG Active TAKE 1 chlorothiazide TABLET BY MOUTH DAILY. Metformin HCl [facility] 59888631520 1000 Active TAKE 1 TABLET BY MOUTH TWICE DAILY Finasteride [facility] 00242500430 5 MG Orally Active 1 tablet Once a day Pantoprazole [facility] 96333188455 40 MG Orally Active 1 tablet Sodium Once a day Mesalamine [facility] 86692762161 1.2 GM Orally Active 2 tablets Twice a day Amiloride[place] [facility] 59856077225 5-50 MG Orally Active 1 tablet chlorothiazide Once a day with food Metformin HCl [facility] 95914636264 1000 MG Orally Active 1 tablet Twice a day with meals Lantus SoloStar [facility] 05288288793 100 UNIT/ML Active not defined Subcutaneous Lantus SoloStar [facility] [address]-15 100 UNIT/ML Active INJECT 45 UNITS UNDER THE SKIN AT BEDTIME Ed Contour [facility] 80335448928 - In Vitro August Active use with Next Test twice daily 17, glucometer 2017 Celecoxib [facility] 28264713576 200 MG Orally Active 1 capsule Once a day with food Metoprolol [facility] 96810013915 50 MG Orally Active 1 tablet Tartrate Twice a day with food Januvia [facility] 41831236565 100 MG Orally Active 1 tablet Once a day Gabapentin [facility] 06549092658 100 MG Orally Active 1 capsule Three times a day Lovastatin [facility] 42931549461 20 MG Orally Active 1 tablet Once a day with a meal Results No Known Results Summary Purpose eClinicalWorks Submission
--- OUTSIDE RECORDS SUMMARY | 2018-09-28 10:52 | XMS REPORT ---
[...] Medications Results No Known Results Summary Purpose eClinicalE96 Submission
--- OUTSIDE RECORDS SUMMARY | 2018-09-28 10:52 | XMS REPORT ---
[...] Medications Results No Known Results Summary Purpose eClinicalShoeDazzle Submission
--- OUTSIDE RECORDS SUMMARY | 2018-09-28 10:52 | XMS REPORT ---
[...] End Status Dosage System Date Date Celecoxib [facility] 47825780506 200 Active TAKE 1 CAPSULE BY MOUTH DAILY Januvia [facility] 10125847123 100 Active TAKE 1 TABLET BY MOUTH DAILY Januvia [facility] 27672681584 100 MG Orally Active 1 tablet Once a day Gabapentin [facility] 15787889548 100 MG Orally Active 1 capsule Three times a day Ed Contour [facility] 97710778648 - In Vitro August 25, Active use with Next Test twice daily 2017 glucometer Lantus SoloStar [facility] 91199873158 100 UNIT/ML Active not defined Subcutaneous Lantus SoloStar [facility] 57628349227 100 UNIT/ML Active INJECT 70 UNITS UNDER THE SKIN AT BEDTIME Tamsulosin HCl [facility] 36149258984 0.4 Active TAKE 2 CAPSULES BY MOUTH ONCE A DAY Celecoxib [facility] 27554767812 200 MG Orally Active 1 capsule Once a day with food Pantoprazole [facility] 12920905915 40 MG Orally Active 1 tablet Sodium Once a day Ferrous Sulfate [facility] 61558086216 325 (65 Fe) MG Active 1 tablet Orally twice a day Amiloride[place] [facility] 80351077667 5-50 MG Orally Active 1 tablet chlorothiazide Once a day with food Metoprolol [facility] 58714916279 50 MG Orally Active 1 tablet Tartrate Twice a day with food [place]iloride[place] [facility] 60772713300 5-50 MG Active TAKE 1 chlorothiazide TABLET BY MOUTH DAILY Lovastatin [facility] 61848205648 20 Active TAKE 1 TABLET BY MOUTH DAILY Finasteride [facility] 68078152178 5 MG Orally Active 1 tablet Once a day Metformin HCl [facility] 06566872789 1000 Active TAKE 1 TABLET BY MOUTH TWICE DAILY Metformin HCl [facility] 17652593879 1000 MG Orally Active 1 tablet Twice a day with meals Lovastatin [facility] 38851026501 20 MG Orally Active 1 tablet Once a day with a meal Mesalamine [facility] 84032465405 1.2 GM Orally Active 2 tablets Twice a day Results No Known Results Summary Purpose eClinicalWorks Submission
--- OUTSIDE RECORDS SUMMARY | 2018-09-28 10:52 | XMS REPORT ---
[...] 0-18 Problem Urothelial carcinoma C68.9 Active Assessment Renal insufficiency N28.9 Active Problem Unspecified kidney failure N19 Active Assessment S/P CABG x 1 Z95.1 Active Problem Iron deficiency anemia due to chronic D50.0 Active blood loss Problem BPH without urinary obstruction N40.0 Active Problem Colitis K52.9 Active Problem Diabetes mellitus type 2, controlled, E11.9 Active without complications Problem Non-alcoholic fatty liver disease K76.0 Active Assessment Colitis K52.9 Active Assessment Mixed hyperlipidemia E78.2 Active Assessment Non-alcoholic fatty liver disease K76.0 Active Assessment Microalbuminuria R80.9 Active Assessment Benign essential hypertension, age I10 Active 0-18 Assessment Diabetes mellitus type 2, controlled, E11.9 Active without complications Assessment Iron deficiency anemia due to chronic D50.0 Active blood loss Assessment Urothelial carcinoma C68.9 Active Problem Microalbuminuria R80.9 Active Medications Medication Code Code Instructions Start End Status Dosage System Date Date Celecoxib [facility] 90996116759 200 Active TAKE 1 CAPSULE BY MOUTH DAILY Ed Contour [facility] 17232810642 - In Vitro August Active use with Next Test twice daily 17, glucometer 2017 Mesalamine ND 47778827095 1.2 GM Orally May Inactive 2 tablets Twice a day 2018 Metformin HCl ND 64620553997 1000 MG Orally Inactive 1 tablet Twice a day with meals Gabapentin [facility] 22541013991 100 MG Orally Active 1 capsule Three times a day Ferrous Sulfate [facility] 55111312064 325 (65 Fe) MG Active 1 tablet Orally twice a day Metformin HCl [facility] 91698488283 1000 Active TAKE 1 TABLET BY MOUTH TWICE DAILY Pantoprazole [facility] 50907947328 40 MG Orally Active 1 tablet Sodium Once a day Amiloride-[place] [facility] 86549916467 5-50 MG Orally Active 1 tablet chlorothiazide Once a day with food Lantonya Rodrigues [facility] 85300632749 100 UNIT/ML Active inject 45 Subcutaneous units Once a day Amiloride[place] [facility] 20357840039 5-50 MG Active TAKE 1 chlorothiazide TABLET BY MOUTH DAILY. Celecoxib [facility] 39455365322 200 MG Orally Aug Active 1 capsule Once a day with food [address] [facility] 64786856344 20 MG Orally Active 1 tablet Once a day with a meal Januvia [facility] 35544568077 100 MG Orally Active 1 tablet Once a day Finasteride [facility] 79133293323 5 MG Orally May Inactive 1 tablet Once a day [address] [facility] 51624440249 20 Active TAKE 1 TABLET BY MOUTH DAILY Tamsulosin HCl [facility] 10520797254 0.4 Active TAKE 2 CAPSULES BY MOUTH ONCE A DAY Metoprolol [facility] 70522563519 50 MG Orally Active 1 tablet Tartrate Twice a day with food Results No Known Results Summary Purpose eClinicalWorks Submission
[2018-09-28] MEDS ORDERED: NA CHLORIDE 0.9% 500 ML ONE (11:50)
[2018-09-28 12:06] LABS: Absolute Lymphocytes (CBC) 1.1 K/uL (0.7-4.9); Basophils % 0.3 % (0-1.3); Hematocrit 32.9 % (39.6-49.0); Lymphocytes % 9.5 % (15.3-44.8); MPV 8.6 fL (7.6-11.3); RBC Red Blood Cell Count 4.11 M/uL (4.33-5.43)
--- NOTE | 2018-09-28 12:08 | RAD REPORT ---
EXAM DESCRIPTION: RAD - Chest Single View - 09/28/2018 11:54 am CLINICAL HISTORY: Chest pain, back pain COMPARISON: August 2017 TECHNIQUE: AP portable chest image was obtained 1137 hours . FINDINGS: Lungs are clear. Sternotomy wires are in place. Left subclavian Port-A-Cath has been place d since the prior examination. Vague nodular focus detailed in the lower right lung field on the prio r examination is not evident on the current study. Currently no suspicious lung parenchymal process s een. Heart and vasculature are normal. No measurable pleural effusion and no pneumothorax. No acute bony abnormality seen. No acute aortic findings suspected. IMPRESSION: No acute cardiopulmonary process.
--- NOTE | 2018-09-28 12:20 | EKG ---
Test Date: 2018-09-28 Test Time: 11:44:23 Wheel Loader Operator: ARTEM MEASUREMENT RESULTS: Intervals: Rate: 68 UT: 158 QRSD: 92 QT: 408 QTc: 433 [place]: P: 70 UT: 158 QRS: 56 T: 67 INTERPRETIVE STATEMENTS: Sinus rhythm with premature atrial complexes Otherwise normal ECG Compared to ECG 08/14/2017 15:25:37 Atrial premature complex(es) now present Electronically Signed On 09-28-18 12:19:16 CDT by Doni Victoria
[2018-09-28 12:24] LABS: Albumin 3.1 g/dL (3.4-5.0); Bilirubin Direct 0.2 mg/dL (0-0.2); Bilirubin Total 0.5 mg/dL (0.2-1.0); Protein, Total 7.3 g/dL (6.4-8.2)
[2018-09-28 15:09] LABS: Urine Blood 1+ (NEG); Urine Glucose NEGATIVE (NEG); Urine Protein NEGATIVE (NEG); Urine Specific Gravity 1.015 (1.005-1.030)
[2018-09-28] MEDS ORDERED: FENTANYL CITR 100 MCG/2 ML ONE (15:45)
--- NOTE | 2018-09-28 15:48 | RAD REPORT ---
EXAM DESCRIPTION: CT - Abdomen Pelvis Wo Contrast - 09/28/2018 3:28 pm CLINICAL HISTORY: Abdominal pain, history of bladder cancer with cystectomy 4 months earlier, prior prostatectomy COMPARISON: None. TECHNIQUE: Axial [address] imaging of the abdomen and pelvis was performed without IV contrast. No IV contrast was given because of allergy, abnormal renal function, patient refusal or physician re quest. No oral contrast administered. All CT scans are performed using dose optimization technique as appropriate and may include automated exposure control or mA/KV adjustment according to patient size. FINDINGS: No suspicious findings in the lung bases. Liver size is normal with no capsular nodularity. Liver does demonstrate several poorly defined round ed areas of diminished attenuation scattered in the right lobe 13-18 mm in size. In a patient with ma lignancy history, liver metastatic disease is a primary concern. No focal splenic abnormality. No primary pancreatic process seen. Gallbladder and biliary tree are al so without suspicious finding. No adrenal abnormality. Minimal bilateral perinephric stranding is present. Mild dilatation of each collecting system is seen slightly worse on the left. No obstructing or nonobstructing calculi. Ureters extend to anastomotic site to a loop of small bowel along the pelvic floor, part of the neobladder. A mostly collapsed neob ladder is seen. No stone within this structure. In the lower left pelvis a 7 centimeter thin-walled cystic structure is present. This is not clearly part of the neobladder structure and may be a chronic postoperative seroma, lymphocele or other benig n structure. Isodense renal masses and pyelonephritis cannot be excluded in the absence of IV contras t. No gastric dilatation or wall thickening. No dilated large or small bowel. Bowel anastomotic site celestino w no suspicious findings. No free air or pneumatosis. There is stranding along the pelvic floor that is not unexpected given the extent of surgery. Numerous surgical clips are present. Fat extends near each inguinal canal. Aortoiliac lymph nodes are present. There are few small retrocrural lymph nodes as well. Lymph nodes measure up to 18 mm in size. Disc and bone degenerative changes are present. In each ileum and the sacrum there are numerous punct ate sclerotic foci seen. There are multiple small sclerotic foci scattered in the lumbar and lower th oracic vertebrae. IMPRESSION: No bowel obstruction, free air or surgically emergent finding. Multiple low-density lesions in the liver, numerous sclerotic foci in the skeleton and aortoiliac and retrocrural lymph nodes are present. Findings are all suspicious for metastatic disease. No prior im aging is available to determine if these are new findings. Mild dilatation or hydronephrosis of each kidney with the ureters extending to a neobladder along the floor the pelvis. Hydronephrosis is not uncommon and an obstructing stone or mass is not seen. Approximately 7 centimeter thin-walled homogeneous cystic mass in the left lower pelvis that is suspe cted to be a chronic postsurgical structure, chronic seroma, lymphocele or other benign mass. Full assessment is limited is the absence of IV contrast.
[2018-09-28 15:50] LABS: Urine Bacteria <20 /HPF (NONE SEEN); Urine Culture Reflex Order REFLEXED; Urine RBC <5 /HPF (NONE SEEN)
--- NOTE | 2018-09-28 16:57 | EDPHYS ---
Physician Documentation [facility] Name: Devin Arrieta Age: 63 yrs Sex: Male : 1955 Arrival Date: 09/28/2018 Time: 10:46 Bed 6 Private MD: Lane Ordoñez ED Physician Luis Hernández HPI: 09/28 11:36 This 63 yrs old Male presents to ER via Ambulatory with complaints of snw Abdominal Pain, Back Pain. 11:36 The patient presents with abdominal pain in the lower abdomen. Onset: The snw symptoms/episode began/occurred 2 month(s) ago, and became worse and became persistent. The symptoms radiate to Associated signs and symptoms: Pertinent positives: increased frequency of urination per neobladder. The symptoms are described as constant. Severity of pain: At its worst the pain was moderate. It is unknown whether or not the patient has had similar symptoms in the past. The patient has been recently seen by a physician: with similar presenting complaints, ct scan of abd with and without ordered, pt's creatinine 2 weeks ago was 1.74. Historical: - Allergies: 10:51 No Known Allergies; aa5 - PMHx: 10:51 Bladder cancer; BPH; chrons disease; Hypertension; Degenerative Disc Disease; kidney aa5 disease; Diabetes - IDDM; - PSHx: 10:51 Bladder Removed- Bladder Cancer; Neobladder; "Open Heart Sugery for Medical clearance"; aa5 Prostate removed; - Immunization history:: Adult Immunizations unknown. - Social history:: Smoking status: Patient/guardian denies using tobacco. - Ebola Screening: : No symptoms or risks identified at this time. ROS: 11:35 Constitutional: Negative for fever, chills, and weight loss, Eyes: Negative for injury, snw pain, redness, and discharge, ENT: Negative for injury, pain, and discharge, Neck: Negative for injury, pain, and swelling, Cardiovascular: Negative for chest pain, palpitations, and edema, Respiratory: Negative for shortness of breath, cough, wheezing, and pleuritic chest pain, : Negative for injury, bleeding, discharge, and swelling, MS/Extremity: Negative for injury and deformity, Skin: Negative for injury, rash, and discoloration, Neuro: Negative for headache, weakness, numbness, tingling, and seizure. 11:35 Abdomen/GI: Positive for abdominal pain, abdominal cramps. 11:35 Back: Positive for pain at rest, pain with movement, radiated pain. Exam: 11:33 Head/Face: Normocephalic, atraumatic. Eyes: Pupils equal round and reactive to light, snw extra-ocular motions intact. Lids and lashes normal. Conjunctiva and sclera are non-icteric and not injected. Cornea within normal limits. Periorbital areas with no swelling, redness, or edema. ENT: Nares patent. No nasal discharge, no septal abnormalities noted. Tympanic membranes are normal and external auditory canals are clear. Oropharynx with no redness, swelling, or masses, exudates, or evidence of obstruction, uvula midline. Mucous membranes moist. Neck: Trachea midline, no thyromegaly or masses palpated, and no cervical lymphadenopathy. Supple, full range of motion without nuchal rigidity, or vertebral point tenderness. No Meningismus. Chest/axilla: Normal chest wall appearance and motion. Nontender with no deformity. No lesions are appreciated. 11:33 Respiratory: Lungs have equal breath sounds bilaterally, clear to auscultation and percussion. No rales, rhonchi or wheezes noted. No increased work of breathing, no retractions or nasal flaring. MS/ Extremity: Pulses equal, no cyanosis. Neurovascular intact. Full, normal range of motion. Neuro: Awake and alert, GCS 15, oriented to person, place, time, and situation. Cranial nerves II-XII grossly intact. Motor strength 5/5 in all extremities. Sensory grossly intact. Cerebellar exam normal. Normal gait. Psych: Awake, alert, with orientation to person, place and time. Behavior, mood, and affect are within normal limits. 11:33 Constitutional: The patient appears alert, awake, frail, pale. 11:33 Cardiovascular: Rate: normal, Rhythm: regular, Heart sounds: S3, increased. 11:33 Abdomen/GI: Inspection: abdomen appears normal, Bowel sounds: normal, Palpation: mild abdominal tenderness, in the suprapubic area and left lower quadrant, radiates to bilateral lateral lower back. 11:33 Back: pain, that is mild, that is moderate, ROM is painful, with extension, CVA tenderness, is absent. Vital Signs: 10:52 BP 127 / 75; Pulse 66; Resp 16 S; Temp 98.5(O); Pulse Ox 99% on R/A; Weight 80.74 kg aa5 (R); Height 5 ft. 9 in. (175.26 cm) (R); Pain 7/10; 12:00 BP 134 / 56; Pulse 65; Resp 13; Pulse Ox 99% ; bp 13:00 BP 153 / 60; Pulse 65; Resp 20; Pulse Ox 100% ; bp 14:00 BP 143 / 71; Pulse 60; Resp 17; Pulse Ox 100% ; bp 16:00 BP 160 / 69; Pulse 64; Resp 16; Pulse Ox 100% ; bp 17:59 BP 173 / 59; Pulse 68; Resp 15; Temp 98.7; Pulse Ox 100% ; bp 10:52 Body Mass Index 26.29 (80.74 kg, 175.26 cm) aa5 MDM: 10:51 Patient medically screened. snw 13:46 Data reviewed: vital signs, nurses notes. Data interpreted: Pulse oximetry: on room air snw is 99 %. Interpretation: normal. Awaiting: MRI. 09/28 11:24 Order name: Sed Rate; Complete Time: 12:29 snw 09/28 11:24 Order name: T\\T\\S; Complete Time: 12:49 snw 09/28 11:24 Order name: Basic Metabolic Panel; Complete Time: 12:27 snw 09/28 11:24 Order name: Blood Culture Adult (2) snw 09/28 11:24 Order name: CBC with Diff; Complete Time: 12:29 snw 09/28 11:24 Order name: CPK; Complete Time: 12:27 snw 09/28 11:24 Order name: Lactate; Complete Time: 12:27 snw 09/28 11:24 Order name: LFT's; Complete Time: 12:27 snw 09/28 11:24 Order name: Urine Microscopic Only; Complete Time: 16:13 snw 09/28 11:24 Order name: Chest Single View XRAY; Complete Time: 12:11 snw 09/28 11:38 Order name: Urine Culture snw 09/28 14:47 Order name: Urine Dipstick--Ancillary (enter results); Complete Time: 15:33 bd 09/28 11:24 Order name: Accucheck; Complete Time: 11:48 snw 09/28 11:24 Order name: Cardiac monitoring; Complete Time: 11:48 snw 09/28 11:24 Order name: EKG - Nurse/Tech; Complete Time: 11:53 snw 09/28 11:24 Order name: IV Saline Lock - Large Bore; Complete Time: 11:53 snw 09/28 11:24 Order name: Labs collected and sent; Complete Time: 11:53 snw 09/28 11:24 Order name: O2 Per Protocol; Complete Time: 11:48 snw 09/28 11:24 Order name: O2 Sat Monitoring; Complete Time: 11:48 snw 09/28 11:24 Order name: Urine Dipstick-Ancillary (obtain specimen); Complete Time: 15:41 snw 09/28 11:33 Order name: EKG Electrocardiogram; Complete Time: 11:33 EDMS 09/28 14:40 Order name: CT Abd/Pelvis - Without Contrast; Complete Time: 16:22 snw Administered Medications: 11:50 Drug: NS 0.9% 500 ml Route: IV; Rate: bolus; Site: right forearm; aa5 12:30 Follow up: IV Status: Completed infusion; IV Intake: 500ml aa5 15:47 Drug: fentaNYL (PF) 25 mcg Route: IVP; Site: right forearm; aa5 15:55 Follow up: Response: No adverse reaction aa5 17:15 Not Given (Physician Discretion): morphine 4 mg IM once; RASS on ADMIN: Combtv4, Very aa5 Agttd3, Agttd2, Rstlss1, AlertClm0, Drwsy-1, Lt Sdtn-2, Mod Sdtn-3, Dp Sdtn-4, UnArsble-5 17:15 Drug: morphine 4 mg {Note: RASS: 0.} Route: IVP; Site: right forearm; aa5 17:59 Follow up: Response: Pain is decreased bp Disposition: 09/28/18 16:56 Discharged to Home. Impression: Low back pain, Abdominal and pelvic pain - s/p neobladder for CA, possible metastatic bladder cancer. - Condition is Stable. - Discharge Instructions: Abdominal Pain, Adult, Back Pain, Adult, [id number], Metastatic Cancer, Rehydration, Adult, Preventing Chronic Kidney Disease. - Prescriptions for Tylenol- Codeine #3 300-30 mg Oral Tablet - take 2 tablet by ORAL route every 6 hours As needed; 30 tablet. - Medication Reconciliation Form, Thank You Letter, Antibiotic Education, Prescription Opioid Use form. - Follow up: Lane Ordoñez DO; When: 1 - 2 days; Reason: Recheck today's complaints, Continuance of care, Re-evaluation by your physician. - Notes: Please callDr. Jorge for a more urgent appointment. Requests records be sent per Dr. Ordoñez for CT findings today. Avoid Ibuprofen to help kidney function. Focus on the [employer] Marketing Trainee instead of the Mountain! Signatures: Dispatcher [employer] EDMS Grace Parekh, CUSTOMS COMPLIANCE MANAGER-C CUSTOMS COMPLIANCE MANAGER-Csnw Lily Person, RN RN aa5 Antonio Tripp RN RN bp Corrections: (The following items were deleted from the chart) 14:55 12:49 Abdomen Wo Cont ordered. EDMS EDMS 14:55 12:49 Pelvis Wo Cont ordered. EDFL EDMS 18:00 16:56 09/28/2018 16:56 Discharged to Home. Impression: Low back pain; Abdominal and bp pelvic pain - s/p neobladder for CA, possible metastatic bladder cancer. Condition is Stable. Forms are Medication Reconciliation Form, Thank You Letter, Antibiotic Education, Prescription Opioid Use. Follow up: Lane Odroñez; When: 1 - 2 days; Reason: Recheck today's complaints, Continuance of care, Re-evaluation by your physician. snw
--- NOTE | 2018-09-28 16:57 | ER ---
Nurse's Notes [facility] Name: Devin Arrieta Age: 63 yrs Sex: Male : 1955 Arrival Date: 09/28/2018 Time: 10:46 Bed 6 Private MD: Lane Ordoñez Diagnosis: Low back pain;Abdominal and pelvic pain-s/p neobladder for CA, possible metastatic bladder cancer Presentation: 09/28 10:51 Presenting complaint: Patient states: "I've been dealing with this for about 60 days aa5 and my lower back hurts, my upper back hurts, my low abdomen hurts, my right knee hurts, I have muscle aches, and all my joints are hurting". Denies nausea/vomiting. Reports diarrhea but he is currently taking laxatives for constipation after surgery. Pt states "I had bladder cancer so they had to take out my bladder about 4 months ago". 10:51 Acuity: CANDELARIO 3 aa5 10:51 Care prior to arrival: None. aa5 10:51 Transition of care: patient was not received from another setting of care. Onset of aa5 symptoms was 2018. Risk Assessment: Do you want to hurt yourself or someone else? Patient reports no desire to harm self or others. 10:51 Method Of Arrival: Ambulatory aa5 10:55 Initial Sepsis Screen: Does the patient meet any 2 criteria? No. Patient's initial aa5 sepsis screen is negative. Does the patient have a suspected source of infection? No. Patient's initial sepsis screen is negative. Historical: - Allergies: 10:51 No Known Allergies; aa5 - PMHx: 10:51 Bladder cancer; BPH; chrons disease; Hypertension; Degenerative Disc Disease; kidney aa5 disease; Diabetes - IDDM; - PSHx: 10:51 Bladder Removed- Bladder Cancer; Neobladder; "Open Heart Sugery for Medical clearance"; aa5 Prostate removed; - Immunization history:: Adult Immunizations unknown. - Social history:: Smoking status: Patient/guardian denies using tobacco. - Ebola Screening: : No symptoms or risks identified at this time. Screenin:00 Abuse screen: Denies threats or abuse. Nutritional screening: No deficits noted. aa5 Tuberculosis screening: No symptoms or risk factors identified. Fall Risk IV access (20 points). Total Henderson Fall Scale indicates No Risk (0-24 pts). Assessment: 10:52 General: Appears comfortable, Behavior is calm, cooperative. Pain: Complains of pain in aa5 lower abdomen, back, whole body Pain does not radiate. Pain currently is 7 out of 10 on a pain scale. Quality of pain is described as aching, Pain began "60 days ago" Is continuous. Neuro: Level of Consciousness is awake, alert, obeys commands, Oriented to person, place, time, situation. Cardiovascular: Heart tones S1 S2 present Rhythm is regular. Respiratory: Airway is patent Respiratory effort is even, unlabored, Respiratory pattern is regular, symmetrical. GI: Abdomen is round Bowel sounds present X 4 quads. Abd is soft X 4 quads Abdomen is tender to palpation in suprapubic area, right lower quadrant and left lower quadrant Patient currently denies nausea, vomiting. : Reports urinary incontinence at times. EENT: No signs and/or symptoms were reported regarding the EENT system. Derm: Skin is pink, warm \\T\\ dry. Musculoskeletal: Range of motion: intact in all extremities. 12:00 Reassessment: Patient is alert, oriented x 3, equal unlabored respirations, skin aa5 warm/dry/pink. Pt given urinal . 13:15 Reassessment: Patient is alert, oriented x 3, equal unlabored respirations, skin aa5 warm/dry/pink. Awaiting MRI, pt sitting up in bed watching TV. Pt notified of long wait time for MRI at this time, pt verbalized understanding. . 13:15 Pain: Pain currently is 3 out of 10 on a pain scale. aa5 14:39 Reassessment: Contacted MRI about wait time, MRI states inability to complete MRI today aa5 due to MRI maintenance at this time. SENIOR CLINICAL SAS PROGRAMMER was notified. . 15:40 Reassessment: Patient is alert, oriented x 3, equal unlabored respirations, skin aa5 warm/dry/pink. Pt back from CT, pt rates pain 7/10 on a pain scale and requesting pain medication at this time, SENIOR CLINICAL SAS PROGRAMMER was notified. . 17:57 Reassessment: PT D/C HOME VIA WALKER WITH FRIEND, DX WITH METASTATIC CANCER. bp Vital Signs: 10:52 BP 127 / 75; Pulse 66; Resp 16 S; Temp 98.5(O); Pulse Ox 99% on R/A; Weight 80.74 kg aa5 (R); Height 5 ft. 9 in. (175.26 cm) (R); Pain 7/10; 12:00 BP 134 / 56; Pulse 65; Resp 13; Pulse Ox 99% ; bp 13:00 BP 153 / 60; Pulse 65; Resp 20; Pulse Ox 100% ; bp 14:00 BP 143 / 71; Pulse 60; Resp 17; Pulse Ox 100% ; bp 16:00 BP 160 / 69; Pulse 64; Resp 16; Pulse Ox 100% ; bp 17:59 BP 173 / 59; Pulse 68; Resp 15; Temp 98.7; Pulse Ox 100% ; bp 10:52 Body Mass Index 26.29 (80.74 kg, 175.26 cm) aa5 ED Course: 10:46 Patient arrived in ED. mr 10:47 Lane Ordoñez DO is Private Physician. mr 10:50 [facility]are[facility] FNP-C [facility]. snw 10:50 Luis Hernández MD is Attending Physician. snw 10:51 Arm band placed on. aa5 10:51 Patient has correct armband on for positive identification. Placed in gown. Bed in low aa5 position. Call light in reach. Side rails up X2. aircraft maintenance technician on. Pulse ox on. NIBP on. 10:54 Lily Person, RN is Primary Nurse. aa5 11:07 Triage completed. aa5 11:40 Inserted saline lock: 20 gauge in right forearm, using aseptic technique. Blood bp collected. 11:49 Chest Single View XRAY In Process Unspecified. EDMS 11:58 EKG done, by nuclear medicine tech. reviewed by Grace MAXWELL. sm3 15:34 CT Abd/Pelvis - Without Contrast In Process Unspecified. EDMS 16:55 Lane Ordoñez DO is Referral Physician. snw 17:59 No provider procedures requiring assistance completed. IV discontinued, intact, bp bleeding controlled, No redness/swelling at site. Pressure dressing applied. Administered Medications: 11:50 Drug: NS 0.9% 500 ml Route: IV; Rate: bolus; Site: right forearm; aa5 12:30 Follow up: IV Status: Completed infusion; IV Intake: 500ml aa5 15:47 Drug: fentaNYL (PF) 25 mcg Route: IVP; Site: right forearm; aa5 15:55 Follow up: Response: No adverse reaction aa5 17:15 Not Given (Physician Discretion): morphine 4 mg IM once; RASS on ADMIN: Combtv4, Very aa5 Agttd3, Agttd2, Rstlss1, AlertClm0, Drwsy-1, Lt Sdtn-2, Mod Sdtn-3, Dp Sdtn-4, UnArsble-5 17:15 Drug: morphine 4 mg {Note: RASS: 0.} Route: IVP; Site: right forearm; aa5 17:59 Follow up: Response: Pain is decreased bp Intake: 12:30 IV: 500ml; Total: 500ml. aa5 Outcome: 16:56 Discharge ordered by . snw 17:59 Discharged to home via wheelchair, with family. bp 17:59 Condition: stable 17:59 Discharge instructions given to patient, Instructed on discharge instructions, follow up and referral plans. medication usage, Demonstrated understanding of instructions, follow-up care, medications, Prescriptions given X 1. 18:00 Patient left the ED. bp Signatures: Dispatcher [employer] EDMS Grace Parekh, CORYC OIL FIELD PIPELINE SUPERVISOR-Charlene Mary King PersonLily garcia RN RN aa5 Antonio Tripp RN RN bp Vicki Stone 3 Corrections: (The following items were deleted from the chart) 11:09 10:51 Presenting complaint: Patient states: "I've been dealing with this for about 60 aa5 days and my lower back hurts, my upper back hurts, my low abdomen hurts, my right knee hurts, I have muscle aches, and all my joints are hurting" aa5 11:21 10:52 80.74 kg Reported; Height 5 ft. 9 in. Reported; BMI: 26.2; Pain 7/10; aa5 aa5 17:16 17:15 morphine 4 mg IVP in right forearm aa5 aa5
[2018-09-28] MEDS ORDERED: MORPHINE 4 MG/ML SYR ONE (17:11)
== END 2018-09-28 18:00 | disposition home or self-care (01) ==
LOC: ER 10:43
DX: R10.2 Pelvic and perineal pain (principal); Z98.890 Other specified postprocedural states; Z85.51 Personal history of malignant neoplasm of bladder; Z90.79 Acquired absence of other genital organ(s); I10 Essential (primary) hypertension
CPT/HCPCS: 93005; 87040 ×2; 87088; 85025; 87086; 80048; 36415; 86900; 86850; 82550; 86901; 80076; 83605; 85652; 74176; 71045; J3010; 81003; 81015; 82962